=== PATIENT | female | born 1970 | race Caucasian/White ===

== ENCOUNTER 2020-12-28 07:38 | Outpatient (REF) | payer BC, SELFPAY ==
--- NOTE | ~2020-12-28 | XR_ITS ---
EXAMINATION: XR BILATERAL KNEES STANDING. XR LEFT KNEE CLINICAL INFORMATION: Left knee pain. COMPARISON: None TECHNIQUE: AP bilateral knee 1 view. Left knee 2 views. FINDINGS: AP Bilateral Knees Standing: There is mild reduction in medial and lateral compartment joint space both knees. No bony erosive changes or loose body seen. The soft tissues are normal. Left Knee: There is mild reduction in patellofemoral compartment joint space with mild superior patellar spurring. There is minimal suprapatellar joint effusion. No loose bodies or bony erosive changes seen. There is minimal superior patellar enthesophyte. XR/XR knee standing BI IMPRESSION: Mild degenerative changes tricompartment left knee with mild suprapatellar joint effusion. No loose bodies are bony erosive changes. Mild degenerative changes medial and lateral compartment right knee.
--- NOTE | ~2020-12-28 | XR_ITS ---
EXAMINATION: XR BILATERAL KNEES STANDING. XR LEFT KNEE CLINICAL INFORMATION: Left knee pain. COMPARISON: None TECHNIQUE: AP bilateral knee 1 view. Left knee 2 views. FINDINGS: AP Bilateral Knees Standing: There is mild reduction in medial and lateral compartment joint space both knees. No bony erosive changes or loose body seen. The soft tissues are normal. Left Knee: There is mild reduction in patellofemoral compartment joint space with mild superior patellar spurring. There is minimal suprapatellar joint effusion. No loose bodies or bony erosive changes seen. There is minimal superior patellar enthesophyte. XR/XR knee LT 2V IMPRESSION: Mild degenerative changes tricompartment left knee with mild suprapatellar joint effusion. No loose bodies are bony erosive changes. Mild degenerative changes medial and lateral compartment right knee.
== END 2020-12-28 07:39 | disposition home or self-care (01) ==
LOC: HO.HOSX 07:38
PROVIDERS: Visit Provider Orthopaedic Surgery
DX: M25.562 Pain in left knee (principal); M25.561 Pain in right knee; M17.12 Unilateral primary osteoarthritis, left knee
CPT/HCPCS: 73560; 73565

== ENCOUNTER → 2021-04-01 12:22 | Outpatient (BNVA) | payer BC, SELFPAY | PROVIDERS: Visit Provider Orthopaedic Surgery | DX: M17.0 Bilateral primary osteoarthritis of knee (principal); M25.562 Pain in left knee; J45.909 Unspecified asthma, uncomplicated; Z88.1 Allergy status to other antibiotic agents; Z91.09 Other allergy status, other than to drugs and biological substances | CPT/HCPCS: 20610; J1020; J1040 ==

== ENCOUNTER → 2021-10-25 15:28 | Outpatient (BNVA) | payer BC, SELFPAY | PROVIDERS: PCP Internal Medicine; Visit Provider Orthopaedic Surgery | DX: Z13.89 Encounter for screening for other disorder (principal) ==

== ENCOUNTER 2022-03-03 15:38 | Outpatient (REF) | payer BC, SELFPAY ==
--- NOTE | ~2022-03-03 | MM_ITS ---
EXAMINATION: MM SCREENING DIGITAL BREAST TOMOSYNTHESIS, BILATERAL CLINICAL INFORMATION: Screening. COMPARISON: Mammography: March 31, 2020 and studies dating back to September 08, 2011 TECHNIQUE: Digital breast tomosynthesis is performed in both the craniocaudal and mediolateral oblique views along with computer-aided detection (CAD). Synthesized 2D images are generated from the tomosynthesis. FINDINGS: The breasts are heterogeneously dense, which may obscure small masses (ACR BI-RADS breast composition Category c). There are no significant masses, abnormal calcifications, or other abnormalities. MM/MM tomosynthesis screening BI IMPRESSION: There are no significant changes from prior study. ASSESSMENT: BI-RADS 1: Negative RECOMMENDATION: Routine annual mammography screening. This patient's information was entered into a reminder system with a target due date for their next mammogram.
== END 2022-03-03 15:39 | disposition home or self-care (01) ==
LOC: HO.MAMMO 15:38
PROVIDERS: Visit Provider Internal Medicine
DX: Z12.31 Encounter for screening mammogram for malignant neoplasm of breast (principal)
CPT/HCPCS: 77063; 77067

== ENCOUNTER 2022-06-12 08:23 | Outpatient (REF) | payer BC, SELFPAY ==
--- NOTE | ~2022-06-12 | XR_ITS ---
EXAMINATION: AP BILATERAL KNEE. LEFT KNEE. CLINICAL INFORMATION: Pain left knee. COMPARISON: Bilateral AP knee standing and left knee 12/28/2020. TECHNIQUE: AP bilateral knee standing. Left knee 2 views. FINDINGS: AP bilateral knee: There is moderate loss of medial and lateral compartment joint space both knees with mild periarticular spurring medial compartment left knee. Mild genu varus deformity of left knee is noted. No acute fracture or dislocation seen. Left knee: there is mild reduction the patellofemoral compartment joint space with minimal anterior superior patellar spurring. No abnormal joint effusion seen. No bony erosive changes or loose bodies. XR/XR knee LT 2V IMPRESSION: Arthritis left knee with mild anterior superior patellar spurring.
--- NOTE | ~2022-06-12 | XR_ITS ---
EXAMINATION: AP BILATERAL KNEE. LEFT KNEE. CLINICAL INFORMATION: Pain left knee. COMPARISON: Bilateral AP knee standing and left knee 12/28/2020. TECHNIQUE: AP bilateral knee standing. Left knee 2 views. FINDINGS: AP bilateral knee: There is moderate loss of medial and lateral compartment joint space both knees with mild periarticular spurring medial compartment left knee. Mild genu varus deformity of left knee is noted. No acute fracture or dislocation seen. Left knee: there is mild reduction the patellofemoral compartment joint space with minimal anterior superior patellar spurring. No abnormal joint effusion seen. No bony erosive changes or loose bodies. XR/XR knee standing BI IMPRESSION: Arthritis left knee with mild anterior superior patellar spurring.
== END 2022-06-12 08:24 | disposition home or self-care (01) ==
LOC: HO.HOSX 08:23
PROVIDERS: Visit Provider Physician Assistant
DX: M25.561 Pain in right knee (principal); M25.562 Pain in left knee
CPT/HCPCS: 73560; 73565

== ENCOUNTER 2022-07-10 15:57 | Outpatient (REF) | payer BC, SELFPAY ==
--- NOTE | ~2022-07-10 | XR_ITS ---
EXAMINATION: XR WRIST, RIGHT CLINICAL INFORMATION: M25.531 - Pain in right wrist COMPARISON: None. TECHNIQUE: PA, lateral, and oblique views of the right wrist. FINDINGS: No fracture, dislocation, destructive process. Ulnar variance is neutral. Pronator quadratus fat pad normal. No focal joint narrowing or erosive changes. No visible chondrocalcinosis. XR/XR wrist RT min 3V IMPRESSION: Unremarkable right wrist.
== END 2022-07-10 15:58 | disposition home or self-care (01) ==
LOC: HO.HOSX 15:57
PROVIDERS: Visit Provider Orthopaedic Surgery
DX: M25.531 Pain in right wrist (principal)
CPT/HCPCS: 73110

== ENCOUNTER → 2022-07-11 10:18 | Outpatient (BNVA) | payer BC, SELFPAY | PROVIDERS: PCP Internal Medicine; Visit Provider Orthopaedic Surgery | DX: M65.4 Radial styloid tenosynovitis [de Quervain] (principal) | CPT/HCPCS: 20550; J1100 ==

== ENCOUNTER 2022-09-16 07:03 | Outpatient (REF) | payer BC, SELFPAY ==
--- NOTE | ~2022-09-16 | XR_ITS ---
EXAMINATION: XR CERVICAL SPINE CLINICAL INFORMATION: Neck pain COMPARISON: None TECHNIQUE: 3 views of the cervical spine were obtained. FINDINGS: There is mild 2 mm anterior subluxation of C2 with respect to C3. There is curvature of the lower cervical and upper thoracic findings of the left. Bone alignment is otherwise normal. No fracture or dislocation. There is multilevel degenerative spondylosis and degenerative disc disease from C2-C3 to C6-C7. Prevertebral soft tissues are normal. XR/XR cervical spine 2V IMPRESSION: Degenerative changes.
== END 2022-09-16 07:04 | disposition home or self-care (01) ==
LOC: HO.LAB 07:03
PROVIDERS: PCP Internal Medicine; Visit Provider Nurse Practitioner Family
DX: M54.2 Cervicalgia (principal)
CPT/HCPCS: 72040

== ENCOUNTER 2023-02-16 14:41 | Outpatient (AMB) | payer BC, SELFPAY ==
[2023-02-16 14:54] VITALS: BP 122/80; PULSE 66; O2SAT 99; BMI 24.7
--- NOTE | 2023-02-16 14:54 | MHC.PC.OV ---
Vital Signs 02/16/23 14:54 Height 5 ft 1 in Weight 131 lb BMI 24.7 BP 122/80 Blood Pressure Location Lt brachial Position Sitting Pulse 66 Pulse Source Pulse Oximeter Temp Source Skin Pulse Oximetry (%) 99 Oxygen Delivery Method Room Air Intake Visit Reasons: P.E Intake Note: Patient is here today for a physical. 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 Allergies cephalexin [Keflex] Allergy (Unknown, Verified 02/16/23 15:18) hives ENVIRONMENTAL Adverse Reaction (Mild, Uncoded 02/16/23 15:18) UNKNOWN Medication List - Last Reconciled 02/16/23 by NIKO Chaney ibuprofen 200 mg PO Q6H PRN Tobacco use date assessed: 02/16/23 Dental Screening Dental Screen Date: 02/16/23 Did you have a dental visit in the last 12 months?: No Did you have a dental problem in the last 6 months where you did not have access to dental care?: No Was dental information given to patient?: Patient has dentist HPI P.E HPI Details Patient is a 52-year-old female who presents today for physical exam. Patient of Dr. Mills. Medical history significant for bilateral osteoarthritis of knee. Today we discussed patient's need for cervical cancer screening and colon cancer screening. Up-to-date with immunizations. Patient has an upcoming mammogram 02/2023. Patient denies shortness of breath or chest pain. Patient reports intermittent itchy ears. [facility] Medical History Asthma Cervical spine pain Rash Rash and nonspecific skin eruption Family History Mother Cancer Father Heart problem Social History Alcohol intake: current Alcohol intake frequency: holidays/special occasions only Patient Tobacco Use Status: Never used Tobacco Current occupational status: employed Current occupation: right handed - [employer] Cognitive needs: No Hearing needs: No Vision needs: No Questionnaire PHQ-9 Over the last 2 weeks, how often have you been bothered by any of the following problems? 1. Little interest or pleasure in doing things: not at all 2. Feeling down, depressed, or hopeless: not at all 3. Trouble falling or staying asleep, or sleeping too much: not at all 4. Feeling tired or having little energy: not at all 5. Poor appetite or overeating: not at all 6. Feeling bad about yourself - or that you are a failure or have let yourself or your family down: not at all 7. Trouble concentrating on things, such as reading the newspaper or watching television: not at all 8. Moving or speaking so slowly that other people could have noticed. Or the opposite - being so fidgety or restless that you have been moving around a lot more than usual: not at all 9. Thoughts that you would be better off or of hurting yourself in some way: not at all Total score: 0 Depression Screening Interpretation: Negative 55475 - PHQ-9 Billing: Yes Source: Developed by Drs. Jamar Zamora, Milana Macario, Gagan Bro and colleagues, with an educational sybil from [employer]. Thrive Questionnaire Date Thrive assessed: 09/04/22 AUDIT C Alcohol Use Questionnaire (AUDIT-C) 1. How often do you have a drink containing alcohol?: Never 3. How often do you have six or more drinks on one occasion?: Never Total Score: 0 Score Reviewed/Action Taken: No SILVANO-7 AMB Questionnaire SILVANO-7 Date SILVANO - 7 assessed: 02/16/23 Feeling nervous, anxious, or on edge: 0 = Not at all Not being able to stop or control worryin = Not at all Worrying too much about different things: 0 = Not at all Trouble relaxin = Not at all Being so restless that it is hard to sit still: 0 = Not at all Becoming easily annoyed or irritable: 0 = Not at all Feeling afraid as if something awful might happen: 0 = Not at all Total SILVANO-7 score (0-4 normal; 5-9 mild; 10-14 moderate; 15-21 severe): 0 Source: Developed by Drs. Jamar Zamora, Milana Macario, Gagan Bro and colleagues, with an educational sybil from [employer]. SILVANO-7 Assessment Billing SILVANO-7 Assessment Tool: SILVANO-7 Assessment 55879 Review of Systems Const Denies body aches, Denies chills, Denies fever(s) and Denies headache(s) Eyes Denies change in vision ENT Reports as per HPI, Denies dizziness, Denies otalgia, Denies headache(s), Denies nasal discharge, Denies sinus pain and Denies sore throat Card Denies chest pain, Denies edema, Denies lightheadedness and Denies dyspnea Resp Denies cough, Denies dyspnea and Denies wheezing GI Denies abdominal pain, Denies constipation, Denies diarrhea, Denies nausea and Denies vomiting Denies dysuria Musc Denies myalgias Skin/Breast Denies rash Neuro Denies dizziness and Denies headache(s) Aller/Immun Denies wheezing Physical exam (Primary Care) Vital Signs: Last Vital Signs Pulse 66 02/16/23 14:54 BP 122/80 02/16/23 14:54 Pulse Ox 99 02/16/23 14:54 Oxygen Delivery Method Room Air 02/16/23 14:54 BMI result Body Mass Index 24.7 Tobacco/Smoking Status: Tobacco use Status Tobacco use date assessed 02/16/23 02/16/23 14:59 Patient Tobacco Use Status Never used Tobacco 02/16/23 14:59 PHQ-9: PHQ-9 Score PHQ-9: Total score 0 02/16/23 15:18 Depression Screening Interpretation: Negative Thrive Assessment: Date of Thrive Assessment Date Thrive assessed 09/04/22 02/16/23 14:59 Const General: cooperative and no acute distress Orientation/consciousness: patient oriented x3 HENMT Other: Bilateral ear canal normal, no erythema Head: Yes normocephalic and Yes atraumatic Ears: TM's normal bilaterally Face and sinus: Yes sinuses nontender Mouth: oropharynx normal and moist mucous membranes Throat: Yes posterior oropharynx normal Eyes General: appearance normal, both eyes and all related structures Pupils: Equal, round and reactive pupils present EOM: EOMs intact bilaterally Neck Neck: Yes normal visual inspection, Yes full ROM and Yes no lymphadenopathy Thyroid: Thyroid normal Resp Effort & Inspection: normal respiratory effort and able to speak in complete sentences Auscultation: clear to auscultation bilaterally, no crackles, no rales, no rhonchi and no wheezes Cardio Rate: regular rate Rhythm: regular rhythm Heart sounds: S1 normal heart sound present, S2 normal heart sound present and no murmurs GI Palpation (GI): Soft to palpation, not firm, nontender, no guarding, not rigid and no hepatosplenomegaly Auscultation: normal bowel sounds General: No CVA tenderness Back/Spine/Pelvis Back: No CVA tenderness Skin General skin exam: no rashes or lesions noted Neuro General: patient oriented x3 Cranial nerves: Yes Equal, round and reactive pupils present Gait exam (Neuro): Normal gait present Extrem General: Yes full ROM and No edema Assessment and Plan Assessment & Plan (1) Cervical cancer screening: Code(s): Z12.4 - Encounter for screening for malignant neoplasm of cervix (2) Screening for colon cancer: Code(s): Z12.11 - Encounter for screening for malignant neoplasm of colon (3) Adult general medical exam: Code(s): Z00.00 - Encounter for general adult medical examination without abnormal findings Plan: Repeat in 1 year Blood work ordered Orders: Orders Vitamin B12 and Folate Today Z00.00 - Encounter for general adult medical examination without abnormal findings Comprehensive [place]. Panel Fast Today Z00.00 - Encounter for general adult medical examination without abnormal findings Lipid Panel Today Z00.00 - Encounter for general adult medical examination without abnormal findings TSH reflex Free T4 Today Z00.00 - Encounter for general adult medical examination without abnormal findings Vitamin D 25-OH Total Today Z00.00 - Encounter for general adult medical examination without abnormal findings Complete Blood Count Auto Diff Today Z00.00 - Encounter for general adult medical examination without abnormal findings Referrals Open Access Screening Colonoscopy Referral Z12.11 - Encounter for screening for malignant neoplasm of colon, Z12.12 - Encounter for screening for malignant neoplasm of rectum FAMILY INDEPENDENCE CASE MANAGER Referral Z12.4 - Encounter for screening for malignant neoplasm of cervix Coding Level of Care Code Est Pt Prev Care 40-64y(23956) Diagnoses Cervical cancer screening Z12.4 Screening for colon cancer Z12.11 Adult general medical exam Z00.00 Additional Codes SILVANO-7 Assessment Billing - SILVANO-7 Assessment Tool: SILVANO-7 Assessment 21373 ([id number])
== END 2023-02-16 15:34 | disposition home or self-care (01) ==
PROVIDERS: PCP Internal Medicine; Visit Provider Nurse Practitioner Family
DX: Z00.00 Encounter for general adult medical examination without abnormal findings (principal); Z12.11 Encounter for screening for malignant neoplasm of colon
CPT/HCPCS: 99396

== ENCOUNTER 2023-03-08 15:44 | Outpatient (REF) | payer BC, SELFPAY | END 2023-03-08 15:45 | disposition home or self-care (01) | LOC: HO.MAMMO 15:44 | PROVIDERS: PCP Internal Medicine; Visit Provider Internal Medicine | DX: Z12.31 Encounter for screening mammogram for malignant neoplasm of breast (principal) | CPT/HCPCS: 77063; 77067 ==

== ENCOUNTER → 2023-03-08 16:00 | Outpatient (BNV) | payer BC, SELFPAY | PROVIDERS: PCP Internal Medicine; Visit Provider Radiology Diagnostic Radiology | DX: Z12.31 Encounter for screening mammogram for malignant neoplasm of breast (principal) | CPT/HCPCS: 77063; 77067 ==

== ENCOUNTER 2023-06-29 14:29 | Outpatient (REF) | payer BC, SELFPAY ==
[2023-06-30 01:24] LABS: CT PCR NOT DETECTED (Not Detect.); NG PCR NOT DETECTED (Not Detect.)
[2023-07-01 14:32] LABS: BV Int Neg Control Negative (Negative); BV Int Pos Control Positive (Positive)
[2023-07-05 05:04] LABS: HPV mRNA E6/E7 rflx Not Detected (Not Detected)
== END 2023-06-29 14:30 | disposition home or self-care (01) ==
LOC: HO.LNP 14:29
PROVIDERS: PCP Internal Medicine; Visit Provider Advanced Practice Midwife
DX: Z01.419 Encounter for gynecological examination (general) (routine) without abnormal findings (principal); Z11.51 Encounter for screening for human papillomavirus (HPV); Z20.2 Contact with and (suspected) exposure to infections with a predominantly sexual mode of transmission
CPT/HCPCS: 0353U; 87480; 87510; 87624; 87660; 88142

== ENCOUNTER 2023-06-29 14:29 | Outpatient (AMB) | payer BC, SELFPAY ==
--- NOTE | 2023-06-29 14:40 | A.OFFVIS_ITS ---
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 It has been a few years since she has been seen for an annual exam she used to go to [facility] and would follow them around to their different sites but she is not sure they are right now. Her primary care providers have changed also. She has no particular health concerns she smoked for maybe 10 years and she stop smoking about 20 years ago. She used Chantix and it helped her. She works full-time and has worked in many places in [employer]. Last time she was sexually active was a few years ago. She has no particular worries about STIs but is open to testing with the Pap. She has a family member who was somewhat recently diagnosed with uterine sarcoma so is concerned about that. She has not had a period since menopause. She did have some hot flashes but they are mostly done. She tries to eat well she thinks she could walk more for exercise but after a long day at work is tired. She does not have any other health concerns she is getting her mammograms jay ually and she has a appointment for a colonoscopy coming up. [facility] Medical History (Updated 06/29/23 @ 15:31 by Gloria Conrad CNM) Cervical spine pain Rash and nonspecific skin eruption Rash Asthma Surgical History (Updated 06/29/23 @ 14:51 by AMIRA Logan) History of left knee surgery Hx of appendectomy Family History (Updated 06/29/23 @ 14:52 by AMIRA Logan) Mother Cancer Father Heart problem Brother Colon cancer Sister Uterine cancer Social History Alcohol intake: current Alcohol intake frequency: holidays/special occasions only Patient Tobacco Use Status: Never used Tobacco Current occupational status: employed Current occupation: right handed - [employer] Cognitive needs: No Hearing needs: No Vision needs: No Female Reproductive History Menstrual Age of Menarche: 9 control method: none Total pregnancies: 1 Ab induced: 1 Date of last pap smear: 03/01/18 (negative) Date of Mammogram: 03/08/23 Review of Systems Const Reports lethargy Physical Exam Vital Signs: Last Vital Signs BP 126/76 06/29/23 14:41 BMI result Body Mass Index 25.3 Const General: healthy appearing, comfortable, no acute distress, well developed and alert Nutritional Appearance: average body habitus Orientation/consciousness: patient oriented x3 Limitations: no limitations HEENT Head: Yes normocephalic Neck Neck: Yes normal visual inspection Chest Chest palpation & inspection: normal inspection of the chest Breast/axilla inspection: normal inspection of the breasts and normal inspection of the axillae Breast/axilla palpation: normal palpation of the breasts and normal palpation of the axillae Resp Effort & Inspection: normal respiratory effort GI Inspection: Yes normal to inspection, No Abdominal wall edema and No distended Palpation (GI): Soft to palpation and nontender General: Yes bladder normal to palpation External Female Exam: normal external appearance and normal appearance of the urethra Speculum Exam - Vagina: normal appearance of the vagina, normal palpation and normal vaginal discharge Speculum Exam - Cervix: normal appearance of the cervix, normal palpation and nontender Bimanual exam- vagina & uterus: normal bimanual exam, normal palpation, uterine size normal, bladder normal to palpation, consistency normal, normal palpation, uterine mobility normal, uterine shape normal, No Cervical tenderness present, non-tender and no cervical motion tenderness Bimanual Exam- Adnexa, other: normal adnexae, no masses, normal and No adnexal tenderness Neuro General: patient oriented x3 Assessment & Plan Assessment & Plan (1) Cervical cancer screening: Comment: pap done 06/29/23. Code(s): Z12.4 - Encounter for screening for malignant neoplasm of cervix (2) Well woman exam with routine gynecological exam: Code(s): Z01.419 - Encounter for gynecological examination (general) (routine) without abnormal findings (3) Family hx-genital malignancy: Code(s): Z80.49 - Family history of malignant neoplasm of other genital organs Plan -----Discussed in this visit the following: healthy balanced diet, regular and consistent exercise, getting recommended health screens, doing the best she can for her particular health concerns, kegel exercises, pap smear screening and followup recommendations, mammography screening and SBE, normal changes in cy cles in her life stage--- . Reviewed all her efforts to take care of herself and get all of her screenings and healthcare needs met. Offered testing for STIs but she does not feel is in need for blood work. Pap smear was done as well as testing for gonorrhea chlamydia trichomoniasis Gardnerella and Jamilah. Reviewed her history in family history. Reviewed that there are no good screening tests for ovarian cancer but reviewed her lack of symptoms that would require more testing for either ovarian or endometrial cancers. She ever did develop any of these symptoms she should call in and requested visit and we would take it from there. No particular indication for a pelvic ultrasound or other evaluation was noted today. Will see her in 1 year Orders: Orders Bacterial Vaginosis Panel Today Z11.3 - Encounter for screening for infections with a predominantly sexual mode of transmission Pap Smear Today Z12.4 - Encounter for screening for malignant neoplasm of cervix CT NG by PCR Today Z11.3 - Encounter for screening for infections with a predominantly sexual mode of transmission Coding Level of Care Code New Pt Prev Care 40-64y(75315) Diagnoses Cervical cancer screening Z12.4 Well woman exam with routine gynecological exam Z01.419 Family hx-genital malignancy Z80.49
[2023-06-29 14:41] VITALS: BP 126/76; BMI 25.3
== END 2023-06-29 15:29 | disposition home or self-care (01) ==
PROVIDERS: PCP Internal Medicine; Visit Provider Advanced Practice Midwife
DX: Z12.4 Encounter for screening for malignant neoplasm of cervix (principal); Z01.419 Encounter for gynecological examination (general) (routine) without abnormal findings; Z80.49 Family history of malignant neoplasm of other genital organs
CPT/HCPCS: 99386

== ENCOUNTER 2023-08-03 10:25 | Day surgery (SDC) | payer BC, SELFPAY ==
--- NOTE | 2023-08-02 13:11 | HO.ANESPROP2 ---
Documented by User: Rajni Montiel NP 08/02/23 13:11 HPI - Anesthesia Eval Consult details Narrative: 53yo F for Colonoscopy PMFSH Active Problems Active Problems: All Active Problems (Updated 07/10/23 @ 16:45 by Gloria Conrad CNM) Family hx-genital malignancy (Acute) Well woman exam with routine gynecological exam (Acute) Screening for colon cancer (Acute) Cervical cancer screening (Acute) Adult general medical exam (Acute) Cervical spine pain (Acute) De Quervain's tenosynovitis, right (Acute) Bilateral primary osteoarthritis of knee (Acute) Primary osteoarthritis of left knee (Acute) Rash and nonspecific skin eruption (Acute) Rash (Acute) Past Medical History Medical History Cervical spine pain Rash and nonspecific skin eruption Rash Asthma Family History Family History (Updated 06/29/23 @ 14:52 by AMIRA Logan) Mother Cancer Father Heart problem Brother Colon cancer Sister Uterine cancer Surgical History Surgical History History of left knee surgery Hx of appendectomy Social History Social History Alcohol intake: current Alcohol intake frequency: holidays/special occasions only Patient Tobacco Use Status: Never used Tobacco Use of substances other than those prescribed or required for medical reasons: Yes Are you DNR?: No Advance Directives: No Advance Directives Information Provided: Yes Current occupational status: employed Current occupation: right handed - [employer] Cognitive needs: No Hearing needs: No Vision needs: No Meds Allergies Allergy/AdvReac Type Severity Reaction Status Date / Time cephalexin [Keflex] Allergy Unknown hives Verified 08/03/23 11:46 ENVIRONMENTAL AdvReac Mild UNKNOWN Uncoded 08/03/23 11:46 Home Medications Medication Instructions Recorded Confirmed Last Taken Type ibuprofen 200 mg capsule 200 mg PO Q6H PRN Pain 07/11/22 08/03/23 Unknown History Assessment and Plan Assessment Anesthesia Assessment: Chart Reviewed Documented by User: Muna Rai MD 08/03/23 11:57 PMF Past Medical History Medical History Cervical spine pain Rash and nonspecific skin eruption Rash Asthma Family History Family History (Updated 06/29/23 @ 14:52 by AMIRA Logan) Mother Cancer Father Heart problem Brother Colon cancer Sister Uterine cancer Family history of problems with anesthesia: No Surgical History Surgical History History of left knee surgery Hx of appendectomy History of Problems with Anesthesia: No Social History Social History Alcohol intake: current Alcohol intake frequency: holidays/special occasions only Patient Tobacco Use Status: Never used Tobacco Use of substances other than those prescribed or required for medical reasons: Yes Are you DNR?: No Advance Directives: No Advance Directives Information Provided: Yes Current occupational status: employed Current occupation: right handed - [employer] Cognitive needs: No Hearing needs: No Vision needs: No Meds Allergies Allergy/AdvReac Type Severity Reaction Status Date / Time cephalexin [Keflex] Allergy Unknown hives Verified 08/03/23 11:46 ENVIRONMENTAL AdvReac Mild UNKNOWN Uncoded 08/03/23 11:46 Home Medications Medication Instructions Recorded Confirmed Last Taken Type ibuprofen 200 mg capsule 200 mg PO Q6H PRN Pain 07/11/22 08/03/23 Unknown History Exam Airway Mallampati Class: II TM Dist: >3cm Neck ROM: Full Heart: rrr Lungs: cta Assessment and Plan Assessment Anesthesia Assessment: Anesthesia Plan Discussed Final Anesthetic Review Family History of Problems with Anesthesia: No History of Problems with Anesthesia: No NPO: Yes ASA Class: II Final Preanesthetic Review: No Changes in Pt Med Stat, Meds/Allgs Chart Reviewed and Consent Obtained/Reviewed Patient Risk: Intermediate Procedure Risk: Intermediate Anesthetic Plan Anesthetic Plan: MAC: Disposition: Standard PACU
--- NOTE | 2023-08-03 11:06 | MHC.SHP ---
Pre-Procedural Eval Section A Date of Service: 08/03/23 The patient is an INPATIENT: No The History & Physical has been completed within 30 days and I have reviewed it.: No Section B Chief Complaint: Encounter for screening for malignant neoplasm of Relevant Family History (Specify if Yes): Yes Relevant Social History: None Present Medications: see Short Stay Collaborative assessment Medical History: Significant History (Asthma Cervical spine pain Rash) History of Previous Operations: Relevant previous surgery/procedure and date(s) (status post appendectomy, hx of left knee surgery) Allergies: Allergies Allergy/AdvReac Type Severity Reaction Status Date / Time cephalexin [Keflex] Allergy Unknown hives Verified 06/29/23 14:44 ENVIRONMENTAL AdvReac Mild UNKNOWN Uncoded 06/29/23 14:44 Review of Systems Sugical H&P ROS: Negative: Constitution, Cardiovascular, Respiratory and Gastrointestinal Exam Surgical H&P Exam: Normal: Heart, Normal: Lungs, Normal: Extremities and Normal: Abdomen Plan Diagnosis/Plan: Unchanged I have reviewed the history and physical and performed a pertinent physical examination on my patient. No changes have occurred unless specified. Time Spent With Patient Time: Total time managing care of this patient today ____ minutes.
[2023-08-03 11:09] VITALS: BMI 25.2
[2023-08-03 11:18] VITALS: BP 108/66; PULSE 78; RESP 16; TEMP 37.3; O2SAT 98
--- NOTE | 2023-08-03 11:55 | W.PM.OPN ---
Operative Note Operative Note Date of Service: 08/03/23 Narrative: COLONOSCOPY TILL CECUM Pre-op diagnosis: Colon cancer screening, family history of colon cancer (brother in his mid 50's) Post-op diagnosis:? Diverticulosis Endoscopist:? Freedom Graf MD Anesthesia:?MAC Consent: Indications for the procedure and potential complications of bleeding, perforation, reaction to medications and missed diagnosis were discussed with the patient and informed consent was obtained. Instrument: Olympus PCF H 190 L variable stiffness pediatric colonoscope Monitoring: Vital signs and clinical assessment, intermittent blood pressure monitoring, continuous EKG monitoring, Pulse oximetry and Carbon Dioxide monitoring were done throughout the procedure. Please see anesthesia flowsheet. Colon withdrawl time was 20 minutes. Procedure: The patient was placed in the left lateral decubitis position and pre-procedure medications were administered. After a digital rectal examination of the ano-rectum, the video colonoscope was inserted into the rectum and advanced through the colon to the cecum. The colonoscope was slowly withdrawn in a retrograde panoramic fashion and the colon mucosa was carefully examined including a retroflexed view of the rectum. Findings and interventions are described below. Procedure Difficulty: Without difficulty Findings: Terminal Ileum: Not evaluated Cecum: Moderate diverticulosis throughout the entire colon Ascending Colon: Moderate diverticulosis throughout the entire colon Transverse Colon: Moderate diverticulosis throughout the entire colon Descending Colon: Moderate diverticulosis throughout the entire colon Sigmoid Colon: Severe diverticulosis Rectum: Normal Ano-rectum: Normal Colon preparation: Good after copious irrigation (pt was able to drink half her prep due to nausea and vomiting when she tried to drink the 2nd half of her prep [place] Bowel Preparation Scale Right colon; 2 Transverse colon: 2 Left colon; 3 (0 = Unprepared colon segment with mucosa not seen due to solid stool that cannot be cleared. 1 = Portion of mucosa of the colon segment seen, but other areas of the colon segment not well seen due to staining, residual stool and/or opaque liquid. 2 = Minor amount of residual staining, small fragments of stool and/or opaque liquid, but mucosa of colon segment seen well. 3 = Entire mucosa of colon segment seen well with no residual staining, small fragments of stool or opaque liquid) Impression and Post Procedure Diagnosis: Colonoscopy Findings: No polyps were detected Moderate to severe diverticulosis seen in the entire colon Moderate hemorrhoids on retroflexed exam. Plan: Repeat Colonoscopy in 5 years due to positive family history of colon cancer Diverticulosis handout was given in the discharge area
[2023-08-03 12:39] VITALS: BP 105/59; PULSE 85; RESP 16; TEMP 36.2; O2SAT 100
[2023-08-03 12:58] VITALS: BP 112/59; PULSE 64; RESP 18; TEMP 36.2; O2SAT 100
== END 2023-08-03 13:25 | disposition home or self-care (01) ==
PROVIDERS: Visit Provider Internal Medicine Gastroenterology
PROC: 0DJD8ZZ Inspection of Lower Intestinal Tract, Via Natural or Artificial Opening Endoscopic (ICD-10-PCS; CPT 45378; principal; 2023-08-03 12:00)
DX: Z12.11 Encounter for screening for malignant neoplasm of colon (principal); Z80.0 Family history of malignant neoplasm of digestive organs; K57.30 Diverticulosis of large intestine without perforation or abscess without bleeding; K64.8 Other hemorrhoids; J45.909 Unspecified asthma, uncomplicated; R21 Rash and other nonspecific skin eruption; Z79.1 Long term (current) use of non-steroidal anti-inflammatories (NSAID); Z88.1 Allergy status to other antibiotic agents; Z80.49 Family history of malignant neoplasm of other genital organs
CPT/HCPCS: 45378; J2704

== ENCOUNTER → 2023-08-03 10:25 | Outpatient (BNV) | payer BC, SELFPAY | PROVIDERS: Visit Provider Internal Medicine Gastroenterology | DX: Z12.11 Encounter for screening for malignant neoplasm of colon (principal); Z80.0 Family history of malignant neoplasm of digestive organs; K57.90 Diverticulosis of intestine, part unspecified, without perforation or abscess without bleeding; K64.8 Other hemorrhoids | CPT/HCPCS: 45378 ==

== ENCOUNTER 2024-02-01 07:42 | Outpatient (AMB) | payer BC, SELFPAY ==
[2024-02-01 07:56] VITALS: BP 106/68; PULSE 58; O2SAT 98; BMI 26.3
--- NOTE | 2024-02-01 07:56 | A.OFFPC_ITS ---
Vital Signs 3 02/01/24 07:56 Height 5 ft 1 in Weight 139 lb 0.1 oz BMI 26.3 BP 106/68 Blood Pressure Location Lt brachial Position Sitting Pulse 58 Pulse Source Pulse Oximeter Pulse Oximetry (%) 98 Oxygen Delivery Method Room Air Intake Visit Reasons: CheckUp Allergies cephalexin [Keflex] Allergy (Unknown, Verified 02/01/24 08:25) hives ENVIRONMENTAL Adverse Reaction (Mild, Uncoded 02/01/24 08:25) UNKNOWN Medication List - Last Reconciled 02/01/24 by Shelby Davis PA-C ibuprofen 200 mg PO Q6H PRN Tobacco use date assessed: 02/01/24 Dental Screening Dental Screen Date: 02/01/24 Did you have a dental visit in the last 12 months?: Yes Did you have a dental problem in the last 6 months where you did not have access to dental care?: No Was dental information given to patient?: Patient has dentist HPI CheckUp 2 HPI0 Details 53-year-old female with history of osteo arthritis in both knees last seen by Annalee 02/16/2023 coming in for annual exam.? Review of the notes patient had colonoscopy completed 08/03/2023 with repeat in 5 years due to family history. Pap smear completed 07/03/2023 which was negative for malignancy. Patient is up-to-date on her mammogram 03/08/2023 BI-RADS 1. Up-to-date on vaccinations. Today she tells us she has been having itchiness on her scalp and within her ears. She has previously been seen by dermatology for this problem and given steroid drops but is unsure of the name. She uses T/Gel and Selsun blue for the scalp itchiness with mild relief but still has itchiness at the base of the neck which flares 2-3 times per month. She has used the drops on the neck with some improvement. She also mentions she has been having upper right eyelid swelling and swelling below the eye intermittently for the last 2 months. She has been using warm compresses with some improvement. Lastly she mentions she has bilateral knee pain and was previously seen by [facility] [place] and given a cortisone injection with mild relief. She has interested in a repeat cortisone injection however does not want to return [place]. [facility] Medical History Cervical spine pain Rash and nonspecific skin eruption Rash Asthma Surgical History History of left knee surgery Hx of appendectomy Family History Mother Cancer Father Heart problem Brother Colon cancer Sister Uterine cancer Social History Alcohol intake: current Alcohol intake frequency: holidays/special occasions only Patient Tobacco Use Status: Former Tobacco user Tobacco use type: Cigarette Cigarette Packs Per Day: 1 Years Smoked: 21 years stopped at 33 y/o Current occupational status: employed Current occupation: right handed - [employer] Cognitive needs: No Hearing needs: No Vision needs: No Female Reproductive History Menstrual Age of Menarche: 9 Questionnaire PHQ-9 Over the last 2 weeks, how often have you been bothered by any of the following problems? 1. Little interest or pleasure in doing things: not at all 2. Feeling down, depressed, or hopeless: not at all 3. Trouble falling or staying asleep, or sleeping too much: not at all 4. Feeling tired or having little energy: not at all 5. Poor appetite or overeating: not at all 6. Feeling bad about yourself - or that you are a failure or have let yourself or your family down: not at all 7. Trouble concentrating on things, such as reading the newspaper or watching television: not at all 8. Moving or speaking so slowly that other people could have noticed. Or the opposite - being so fidgety or restless that you have been moving around a lot more than usual: not at all 9. Thoughts that you would be better off or of hurting yourself in some way: not at all Total score: 0 Depression Screening Interpretation: Negative Depression Screening Done: Yes 93458 - PHQ-9 Billing: Yes Source: Developed by Drs. Jamar Zamora, Milana Macario, Gagan Bro and colleagues, with an educational sybil from [employer]. Thrive Questionnaire Date Thrive assessed: 02/06/23 AUDIT C Alcohol Use Questionnaire (AUDIT-C) 1. How often do you have a drink containing alcohol?: Never 3. How often do you have six or more drinks on one occasion?: Never Total Score: 0 Score Reviewed/Action Taken: No SILVANO-7 AMB Questionnaire SILVANO-7 Date SILVANO - 7 assessed: 02/01/24 Feeling nervous, anxious, or on edge: 0 = Not at all Not being able to stop or control worryin = Not at all Worrying too much about different things: 0 = Not at all Trouble relaxin = Not at all Being so restless that it is hard to sit still: 0 = Not at all Becoming easily annoyed or irritable: 0 = Not at all Feeling afraid as if something awful might happen: 0 = Not at all Total SILVANO-7 score (0-4 normal; 5-9 mild; 10-14 moderate; 15-21 severe): 0 Source: Developed by Drs. Jamar Zamora, Milana Macario, Gagan Bro and colleagues, with an educational sybil from [employer]. SILVANO-7 Assessment Billing SILVANO-7 Assessment Tool: SILVANO-7 Assessment 55682 Review of Systems Const Denies body aches, Denies chills and Denies fever(s) Eyes Details: Right upper eyelid swelling and bump and bump under right eye. Denies vision changes, pain, discharge or redness. ENT Reports no additional complaints Card Denies chest pain and Denies dyspnea Resp Denies dyspnea Musc Details: Chronic bilateral knee pain Skin/Breast Details: Scalp irritation and itchiness. Posterior neck itchiness. Denies flaking of the scalp. Aller/Immun Reports no additional complaints Physical exam (Primary Care) Vital Signs: Last Vital Signs Pulse 58 02/01/24 07:56 BP 106/68 02/01/24 07:56 Pulse Ox 98 02/01/24 07:56 Oxygen Delivery Method Room Air 02/01/24 07:56 BMI result Body Mass Index 26.3 Tobacco/Smoking Status: Tobacco use Status Tobacco use date assessed 02/01/24 02/01/24 08:04 Patient Tobacco Use Status Former Tobacco user 02/01/24 08:32 Tobacco use type Cigarette 02/01/24 08:32 PHQ-9: PHQ-9 Score PHQ-9: Total score 0 02/01/24 08:02 Depression Screening Interpretation: Negative Thrive Assessment: Date of Thrive Assessment Date Thrive assessed 09/04/22 02/01/24 07:57 Const General: cooperative, healthy appearing, comfortable and no acute distress Nutritional Appearance: average body habitus Orientation/consciousness: patient oriented x3 Limitations: no limitations HENMT Other: No dandruff. No rash or irritation on the posterior aspect of the neck. Head: Yes normocephalic Ears: hearing grossly normal bilaterally and external ears normal General nose exam: Normal external nose present Face and sinus: Yes normal facial exam Eyes Other: Small bump on right eyelid without erythema, pain, crusting or discharge. Mild swelling under right eye nontender without erythema. Left eye appears normal. Conjunctivae: conjunctivae normal Pupils: Equal, round and reactive pupils present Eyes/upper lids images: 2 1. small bump with white head 2. mild swelling Neck Neck: Yes normal visual inspection Resp Effort & Inspection: normal respiratory effort and able to speak in complete sentences Auscultation: clear to auscultation bilaterally, no crackles, no rales, no rhonchi and no wheezes Cardio Rate: regular rate Rhythm: regular rhythm Heart sounds: S1 normal heart sound present and S2 normal heart sound present Skin General skin exam: no rashes or lesions noted, no crusts and skin not dry Neuro General: patient oriented x3 and gait normal Cranial nerves: Yes Equal, round and reactive pupils present Extrem Right lower extremity: normal to inspection and full ROM Left lower extremity: normal to inspection and full ROM Psych Speech and movement: Normal speech and movement present Affect: normal affect Attitude: cooperative Thought process: Normal thought process present Insight: Good insight present (Psych) Assessment and Plan Assessment & Plan (1) Primary osteoarthritis of left knee: Code(s): M17.12 - Unilateral primary osteoarthritis, left knee Plan: Last x-rays 2021 showing joint space narrowing and spurring of bilateral knees. She is currently using ibuprofen with mild relief of pain. Patient was previously seen by [facility] and given a cortisone injection with good relief. She is interested in repeat cortisone injections and is referred to a [facility] per patient request. (2) Irritation of eyelid: Code(s): H02.89 - Other specified disorders of eyelid Plan: Patient has been having mild swelling of the right eyelid for the past 2 months. She has had improvement with warm compresses. Patient agrees to continue with warm compresses and eyelid hygiene with baby shampoo. Also instructed about good makeup hygiene and discarding old mascara. Counseled patient on red flag symptoms of eye swelling and when to present to the ED. Patient will reach out in 1-2 weeks if symptoms do not improve. (3) Scalp pruritus: Code(s): L29.9 - Pruritus, unspecified Plan: No active lesions on the back of the neck to evaluate at this time. Patient states when she has the flares she can feel raised patches. Has used steroids in the past with good relief and has some at this time. Instructed patient she can use [id number] hydrocortisone. Patient also uses T gel and Selsun blue for scalp itch with good relief. Informed patient if hydrocortisone does not improve the rash a stronger steroid may be prescribed. Orders: Orders 2 Complete Blood Count Auto Diff Today Z00.00 - Encounter for general adult medical examination without abnormal findings TSH reflex Free T4 Today Z00.00 - Encounter for general adult medical examination without abnormal findings Vitamin D 25-OH Total Today Z00.00 - Encounter for general adult medical examination without abnormal findings Comprehensive [place]. Panel Fast Today Z00.00 - Encounter for general adult medical examination without abnormal findings Lipid Panel Today Z00.00 - Encounter for general adult medical examination without abnormal findings Vitamin B12 and Folate Today Z00.00 - Encounter for general adult medical examination without abnormal findings Referrals 2 Orthopedics Referral M17.12 - Unilateral primary osteoarthritis, left knee Coding Level of Care Code Est Pt Level 4 (08682) Diagnoses Primary osteoarthritis of left knee M17.12 Irritation of eyelid H02.89 Scalp pruritus L29.9 Additional Codes SILVANO-7 Assessment Billing - SILVANO-7 Assessment Tool: SILVANO-7 Assessment 22282 ([id number])
== END 2024-02-01 08:40 | disposition home or self-care (01) ==
PROVIDERS: PCP Internal Medicine
DX: M17.12 Unilateral primary osteoarthritis, left knee (principal); H02.89 Other specified disorders of eyelid; L29.9 Pruritus, unspecified
CPT/HCPCS: 99214

== ENCOUNTER 2024-02-16 07:09 | Outpatient (REF) | payer BC, SELFPAY ==
[2024-02-16 07:27] LABS: MANUAL DIFF FLAG NO
[2024-02-16 07:34] LABS: Basophils Absolute Auto 0.1 X10*3/uL (0.0-0.2); Eosinophils Absolute Auto 0.3 X10*3/uL (0.0-0.4); Eosinophils Percent Auto 5.7 % (0-4); Hematocrit 42.4 % (37.0-47.0); Hemoglobin 14.4 g/dl (12.0-16.0); Imm Gran Abs Auto 0.01 X10*3/uL (0.00-0.03); Imm Gran Pct Auto 0.2 % (0.0-0.4); Lymphocytes Percent Auto 34.3 % (20-40); Mean Corpuscular Hemoglobin 31.2 pg (27.0-33.0); Mean Corpuscular Volume 91.8 fL (80.0-98.0); Mean Platelet Volume 9.7 fL (9.4-12.3); Monocytes Absolute Auto 0.6 X10*3/uL (0.1-1.2); Monocytes Percent Auto 9.7 % (2-11); Neutrophils Absolute Auto 2.8 x10*3/uL (2.0-8.3); Neutrophils Percent Auto 49.1 % (45-73); Platelet Count 245 X10*3/uL (160-400); Red Blood Count 4.62 X10*6/uL (4.20-5.50); Red Cell Distribution Width 12.8 % (11.0-16.0); White Blood Count 5.8 X10*3/uL (4.8-10.8)
[2024-02-16 08:29] LABS: Alanine Aminotransferase 15 U/L (0-31); Albumin Level 4.6 g/dL (3.5-5.0); Alkaline Phosphatase 81 U/L (39-117); Anion Gap 13 (12-20); Aspartate Amino Transferase 21 U/L (5-31); Bilirubin Total 0.3 mg/dL (0.0-1.0); Blood Urea Nitrogen 20 mg/dL (9-16); Calcium 9.8 mg/dL (8.4-10.2); Carbon Dioxide 27 mmol/L (22-29); Chloride 108 mmol/L (96-108); Cholesterol 193 mg/dL (<200); Estimated Glomerular Filt Rate > 60; Glucose Fasting 102 mg/dL (60-99); HDL Cholesterol 88 mg/dL (>40); LDL Cholesterol Calculated 94 mg/dL (<100); Potassium 4.5 mmol/L (3.3-5.1); Sodium 143 mmol/L (135-145); Total Protein 6.9 g/dL (6.5-8.0); Triglycerides 59 mg/dL (<150)
[2024-02-16 08:38] LABS: TSH reflex Free T4 1.12 uIU/mL (0.32-4.0)
[2024-02-16 08:51] LABS: Vitamin B12 365 pg/mL (200-900)
== END 2024-02-16 07:10 | disposition home or self-care (01) ==
LOC: HO.LAB 07:09
PROVIDERS: PCP Internal Medicine
DX: Z00.00 Encounter for general adult medical examination without abnormal findings (principal); Z13.89 Encounter for screening for other disorder
CPT/HCPCS: 36415; 80053; 80061; 82306; 82607; 82746; 84443; 85025

== ENCOUNTER 2024-03-28 13:24 | Outpatient (REF) | payer BC, SELFPAY ==
--- NOTE | ~2024-03-28 | MM_ITS ---
EXAMINATION: MM SCREENING DIGITAL BREAST TOMOSYNTHESIS, BILATERAL CLINICAL INFORMATION: Screening. Asymptomatic. COMPARISON: Mammography: Comparison is made with available priors TECHNIQUE: Digital breast mammography with tomosynthesis is performed in both the craniocaudal and mediolateral oblique views along with computer-aided detection (CAD). FINDINGS: There are scattered areas of fibroglandular density (ACR BI-RADS breast composition Category b). There are no significant masses, abnormal calcifications, or other abnormalities. MM/MM tomosynthesis screening BI IMPRESSION: No mammographic evidence of malignancy. ASSESSMENT: BI-RADS BI-RADS 1 - Negative RECOMMENDATION: Routine annual mammography screening. 1 year F/U This examination should not preclude the clinical evaluation of a suspicious palpable abnormality. This patient's information was entered into a reminder system with a target due date for their next mammogram. Electronically signed by: Shanel Lacey DO 04/19/2024 10:37 PM EDT
== END 2024-03-28 13:25 | disposition home or self-care (01) ==
LOC: HO.MAMMO 13:24
PROVIDERS: Visit Provider Internal Medicine
DX: Z12.31 Encounter for screening mammogram for malignant neoplasm of breast (principal)
CPT/HCPCS: 77063; 77067

== ENCOUNTER → 2024-03-28 13:30 | Outpatient (BNV) | payer BC, SELFPAY | PROVIDERS: Visit Provider Internal Medicine | DX: Z12.31 Encounter for screening mammogram for malignant neoplasm of breast (principal) | CPT/HCPCS: 77063; 77067 ==

== ENCOUNTER 2024-04-04 08:01 | Outpatient (AMB) | payer BC, SELFPAY ==
[2024-04-04 08:06] VITALS: BP 108/70; PULSE 76; O2SAT 98; BMI 25.1
--- NOTE | 2024-04-04 08:06 | MHC.PC.OV ---
Vital Signs 04/04/24 08:06 Height 5 ft 1 in Weight 133 lb BMI 25.1 BP 108/70 Blood Pressure Location Lt brachial Position Sitting Pulse 76 Pulse Source Pulse Oximeter Pulse Oximetry (%) 98 Oxygen Delivery Method Room Air Intake Visit Reasons: Annual Exam Allergies cephalexin [Keflex] Allergy (Unknown, Verified 04/04/24 08:13) hives ENVIRONMENTAL Adverse Reaction (Mild, Uncoded 04/04/24 08:13) UNKNOWN Medication List - Last Reconciled 04/04/24 by Shelby Davis PA-C ibuprofen 200 mg PO Q6H PRN Tobacco use date assessed: 02/01/24 Dental Screening Dental Screen Date: 04/04/24 Did you have a dental visit in the last 12 months?: Yes Did you have a dental problem in the last 6 months where you did not have access to dental care?: No Was dental information given to patient?: Patient has dentist HPI Annual Exam HPI Details 53-year-old female with history of osteoarthritis in both knees last seen January 2024 coming in for annual exam.? Review of the notes patient had colonoscopy completed 08/03/2023 with repeat in 5 years due to family history. Pap smear completed 07/03/2023 which was negative for malignancy. Patient is up-to-date on her mammogram 02/2024. Up-to-date on vaccinations. Patient states she was seen by a [facility] was given a cortisone injection for her left knee in both knees have been feeling better. She does also mentioned she has a vaginal odor with scant discharge and has been using prescribed vaginal cream but does not feel this is helping. Lastly she mentions she does have itchy ears and was previously being treated by Dermatology with steroid oil drops but has run out of these. [facility] Medical History Cervical spine pain Rash and nonspecific skin eruption Rash Asthma Surgical History History of left knee surgery Hx of appendectomy Family History Mother Cancer Father Heart problem Brother Colon cancer Sister Uterine cancer Social History Alcohol intake: current Alcohol intake frequency: holidays/special occasions only Patient Tobacco Use Status: Former Tobacco user Tobacco use type: Cigarette Cigarette Packs Per Day: 1 Years Smoked: 21 years stopped at 33 y/o Current occupational status: employed Current occupation: right handed - [employer] Cognitive needs: No Hearing needs: No Vision needs: No Female Reproductive History Menstrual Age of Menarche: 9 Questionnaire PHQ-9 Over the last 2 weeks, how often have you been bothered by any of the following problems? 1. Little interest or pleasure in doing things: not at all 2. Feeling down, depressed, or hopeless: not at all 3. Trouble falling or staying asleep, or sleeping too much: not at all 4. Feeling tired or having little energy: not at all 5. Poor appetite or overeating: not at all 6. Feeling bad about yourself - or that you are a failure or have let yourself or your family down: not at all 7. Trouble concentrating on things, such as reading the newspaper or watching television: not at all 8. Moving or speaking so slowly that other people could have noticed. Or the opposite - being so fidgety or restless that you have been moving around a lot more than usual: not at all 9. Thoughts that you would be better off or of hurting yourself in some way: not at all Total score: 0 Depression Screening Interpretation: Negative Depression Screening Done: Yes 64208 - PHQ-9 Billing: Yes Source: Developed by Drs. Jamar Zamora, Milana Macario, Gagan Bro and colleagues, with an educational sybil from [employer]. Thrive Questionnaire Date Thrive assessed: 04/04/24 I am a: Patient What is your living situation today?: I have a steady place to live Within the past 12 months, did the food you bought not last and you didn't have the money to get more?: Often true Within the past 12 months, did you worry whether your food would run out before you got money to buy more?: Sometimes True Do you have trouble paying for medicines?: No Do you have trouble getting transportation to medical appointments?: No Do you have trouble paying your heating and electricity bill?: No Do you have trouble taking care of your child, family member or friend?: No Do you have trouble with day-to-day activities such as bathing, preparing meals, shopping, managing finances, etc.?: No Are you currently unemployed and looking for a job?: No Are you interested in more education?: No Please select the resources that you would like help with: None Currently or been in a relationship where the following occur: I choose not to answer THRIVE Score: 2 AUDIT C Alcohol Use Questionnaire (AUDIT-C) 1. How often do you have a drink containing alcohol?: 2-3 times a week 2. How many drinks containing alcohol do you have on a typical day when you are drinking?: 1 or 2 3. How often do you have six or more drinks on one occasion?: Never Total Score: 3 SILVANO-7 AMB Questionnaire SILVANO-7 Date SILVANO - 7 assessed: 02/01/24 Feeling nervous, anxious, or on edge: 0 = Not at all Not being able to stop or control worryin = Not at all Worrying too much about different things: 0 = Not at all Trouble relaxin = Not at all Being so restless that it is hard to sit still: 0 = Not at all Becoming easily annoyed or irritable: 3 = Nearly every day Feeling afraid as if something awful might happen: 0 = Not at all Total SILVANO-7 score (0-4 normal; 5-9 mild; 10-14 moderate; 15-21 severe): 3 Source: Developed by Drs. Jamar Zamora, Milana Macario, Gagan Bro and colleagues, with an educational sybil from [employer]. SILVANO-7 Assessment Billing SILVANO-7 Assessment Tool: SILVANO-7 Assessment 47556 Review of Systems Const Denies body aches, Denies fatigue, Denies fever(s), Denies frequent falls, Denies headache(s) and Denies weakness Eyes Reports no additional complaints and Denies change in vision ENT Details: Itchy and flaky ears bilaterally Denies dysphagia, Denies dizziness, Denies facial pain, Denies headache(s), Denies nasal congestion and Denies odynophagia Card Denies chest pain, Denies syncope, Denies irregular heart rhythm, Denies leg edema, Denies lightheadedness and Denies dyspnea Resp Denies cough and Denies dyspnea GI Denies constipation, Denies dysphagia, Denies dyspepsia, Denies diarrhea, Denies nausea, Denies odynophagia and Denies vomiting Details: Vaginal odor Denies urinary frequency, Denies dysuria, Denies urinary hesitancy and Denies urinary urgency Musc Denies back pain and Denies myalgias Skin/Breast Reports system reviewed and no additional complaints, except as documented Neuro Denies dizziness, Denies syncope, Denies frequent falls, Denies headache(s) and Denies weakness Psych Reports no additional complaints Endo Denies fatigue Physical exam (Primary Care) Vital Signs: Last Vital Signs Pulse 76 04/04/24 08:06 BP 108/70 04/04/24 08:06 Pulse Ox 98 04/04/24 08:06 Oxygen Delivery Method Room Air 04/04/24 08:06 BMI result Body Mass Index 25.1 Tobacco/Smoking Status: Tobacco use Status Tobacco use date assessed 02/01/24 04/04/24 08:08 Patient Tobacco Use Status Former Tobacco user 04/04/24 08:08 Tobacco use type Cigarette 04/04/24 08:08 PHQ-9: PHQ-9 Score PHQ-9: Total score 0 04/04/24 08:14 Depression Screening Interpretation: Negative Thrive Assessment: Date of Thrive Assessment Date Thrive assessed 04/04/24 04/04/24 08:14 Currently or been in a relationship where the following occur: I choose not to answer Const General: cooperative, healthy appearing, comfortable and no acute distress Orientation/consciousness: patient oriented x3 HENMT Head: Yes normocephalic Ears: hearing grossly normal bilaterally, external ears normal, TM's normal bilaterally and EAC's normal General nose exam: Normal external nose present Face and sinus: Yes normal facial exam and Yes sinuses nontender Mouth: Normal oral and palatal mucosa present and tongue normal Throat: Yes posterior oropharynx normal Eyes General: appearance normal, both eyes and all related structures Conjunctivae: conjunctivae normal Pupils: Equal, round and reactive pupils present EOM: EOMs intact bilaterally and No Nystagmus present Neck Neck: Yes normal visual inspection, Yes full ROM and Yes no lymphadenopathy Chest Chest palpation & inspection: normal inspection of the chest Resp Effort & Inspection: normal respiratory effort Auscultation: clear to auscultation bilaterally, no crackles, no rales, no rhonchi, no wheezes and breath sounds present Cardio Rate: regular rate Rhythm: regular rhythm Peripheral pulses: radial pulses present and dorsalis pedis present GI Inspection: Yes normal to inspection and No Abdominal wall edema Palpation (GI): Soft to palpation, not firm and nontender Auscultation: normal bowel sounds Rectal Exam - Female: deferred General: Yes no CVA tenderness Back/Spine/Pelvis Back: no CVA tenderness Skin General skin exam: no rashes or lesions noted Neuro General: patient oriented x3 Cranial nerves: Yes Equal, round and reactive pupils present, Yes Midline tongue present, Yes Ability to bilaterally elevate shoulders present and No Nystagmus present Gait exam (Neuro): Normal gait present Extrem General: Yes normal to inspection, Yes full ROM, No no pedal edema and No edema Psych Speech and movement: Normal speech and movement present Affect: normal affect Insight: Good insight present (Psych) Judgement: Good judgement present (Psych) Assessment and Plan Assessment & Plan (1) Adult general medical exam: Code(s): Z00.00 - Encounter for general adult medical examination without abnormal findings Plan: Patient is up-to-date on all recommended routine screenings and vaccinations for her age. Blood work is up-to-date and was addressed during this visit. Follow up in 1 year or sooner if new problems arise. (2) Rash and nonspecific skin eruption: Code(s): R21 - Rash and other nonspecific skin eruption Plan: Patient has eczema in the ear canals and was previously using topical steroid oil for treatment with good improvement. Prescription sent today. (3) Vaginal odor: Code(s): N89.8 - Other specified noninflammatory disorders of vagina Plan: Patient was previously diagnosed with bacterial vaginosis and given cream for treatment and feels the cream has not been helping. Prescription for metronidazole sent to pharmacy. Advised patient to follow up if symptoms do not improve or worsen. Plan This note was constructed using voice recognition software. While every effort has been made to ensure accuracy and computer project manager, still areas may have been included sometimes these areas may affect the content or meeting of the given symptoms. Total time spent caring for the patient today was 35 minutes. This includes time spent before the visit reviewing the chart, time spent during the visit, and time spent after the visit and documentation. Medications: New fluocinolone acetonide oil 0.01% 5 drps otic (ear) left BID 7 days 20 mL 0RF metronidazole 500 mg PO BID 7 days 14 tabs 0RF Coding Level of Care Code Est Pt Prev Care 40-64y(65780) Diagnoses Adult general medical exam Z00.00 Rash and nonspecific skin eruption R21 Vaginal odor N89.8 Additional Codes SILVANO-7 Assessment Billing - SILVANO-7 Assessment Tool: SILVANO-7 Assessment 29151 ([id number])
== END 2024-04-04 08:44 | disposition home or self-care (01) ==
PROVIDERS: PCP Internal Medicine
DX: Z00.00 Encounter for general adult medical examination without abnormal findings (principal); R21 Rash and other nonspecific skin eruption; N89.8 Other specified noninflammatory disorders of vagina
CPT/HCPCS: 99213; 99396

== ENCOUNTER 2024-07-04 14:20 | Outpatient (REF) | payer BC, SELFPAY ==
[2024-07-05 13:06] LABS: Bacterial Vaginosis PCR NEGATIVE (Negative); Candida Group PCR NOT DETECTED (Not Detect); Candida glab krusei PCR NOT DETECTED (Not Detect); Trichomonas vaginalis PCR NOT DETECTED (Not Detect)
[2024-07-05 13:40] LABS: CT PCR NOT DETECTED (Not Detect.); NG PCR NOT DETECTED (Not Detect.)
== END 2024-07-04 14:21 | disposition home or self-care (01) ==
LOC: HO.LAB 14:20
PROVIDERS: Visit Provider Advanced Practice Midwife
DX: Z01.419 Encounter for gynecological examination (general) (routine) without abnormal findings (principal); N89.8 Other specified noninflammatory disorders of vagina
CPT/HCPCS: 0352U; 87491; 87591

== ENCOUNTER 2024-07-04 14:20 | Outpatient (AMB) | payer BC, SELFPAY ==
--- NOTE | 2024-07-04 14:24 | MHC.OFFVIS ---
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 She did not report a bad odor or vaginal itching or abnormal discharge. She has not been sexually active for perhaps 5 years but she is just starting to date somebody and is contemplating becoming active again. She does not have any symptoms of anything now. She is trying to catch up with all of her annual appointments since she had mammogram and colonoscopy and she is going to be find out the results of an MRI that she had done because it acted pretty badly for her this year so instead of getting another cortisone shot she is getting it evaluated and she is happy about that. [facility] Medical History Cervical spine pain Rash and nonspecific skin eruption Rash Asthma Surgical History History of left knee surgery Hx of appendectomy Family History Mother Cancer Father Heart problem Brother Colon cancer Sister Uterine cancer Social History Alcohol intake: current Alcohol intake frequency: holidays/special occasions only Patient Tobacco Use Status: Former Tobacco user Tobacco use type: Cigarette Cigarette Packs Per Day: 1 Years Smoked: 21 years stopped at 33 y/o Current occupational status: employed Current occupation: right handed - [employer] Cognitive needs: No Hearing needs: No Vision needs: No Female Reproductive History Menstrual Age of Menarche: 9 Duration of menses: other control method: none Total pregnancies: 0 Date of last pap smear: 07/03/23 (neg.2018 WNL) Date of Mammogram: 03/28/24 (negative) Physical Exam Vital Signs: Last Vital Signs BP 116/70 07/04/24 14:26 BMI result Body Mass Index 24.2 Const General: healthy appearing, comfortable, no acute distress, well developed and alert Nutritional Appearance: average body habitus Orientation/consciousness: patient oriented x3 Limitations: no limitations HEENT Head: Yes normocephalic Neck Neck: Yes normal visual inspection Chest Chest palpation & inspection: normal inspection of the chest Breast/axilla inspection: normal inspection of the breasts and normal inspection of the axillae Breast/axilla palpation: normal palpation of the breasts and normal palpation of the axillae Resp Effort & Inspection: normal respiratory effort GI Inspection: Yes normal to inspection, No Abdominal wall edema and No distended Palpation (GI): Soft to palpation and nontender Other: Normal postmenopausal vaginal exam. No lesions vagina is pink moist atrophic changes cervix pink closed smooth appears nulliparous normal clear to scant white discharge Cervix mobile nontender uterus not enlarged nontender midposition adnexa nontender patient has extremely good tone Kegel. General: Yes bladder normal to palpation External Female Exam: normal external appearance and normal appearance of the urethra Speculum Exam - Vagina: normal appearance of the vagina, normal palpation and normal vaginal discharge Speculum Exam - Cervix: normal appearance of the cervix, normal palpation and nontender Bimanual exam- vagina & uterus: normal bimanual exam, normal palpation, uterine size normal, bladder normal to palpation, consistency normal, normal palpation, uterine mobility normal, uterine shape normal, No Cervical tenderness present, non-tender and no cervical motion tenderness Bimanual Exam- Adnexa, other: normal adnexae, no masses, normal and No adnexal tenderness Neuro General: patient oriented x3 Results Reviewed Results Reviewed: Name: [place] Age/Sex: 53/F Attending: Gloria Conrad CNM : 1970 Submitted by: Gloria Conrad CNM Copies to: Tae Mills MD MR #: [id number] Status: DEP REF Collected: 06/29/23 Location: [facility] Received: 07/03/23 Interpretation General Category: Negative for intraepithelial lesion/malignancy. Adequacy: Endocervical component present. Interpretation: Reactive cellular changes. Abundant blood. HPV mRNA E6/E7: Not Detected This assay detects E6/E7 viral messenger RNA (mRNA) from 14 high-risk HPV types (16, 18, 31, 33, 35, 39, 45, 51, 52, 56, 58, 59, 66, 68) HPV testing performed by [facility], [place], [place]. See reference laboratory portion of the EMR for entire report. Clinical Information LMP: No menses Previous PAP test: 2018, WNL Material Received ThinPrep-Cervical Copies To Gloria Conrad CNM [address] [place] [address] [address] [place] [address] Tae Mills MD [address] [place] [address] [address] [place] [address] Electronically Signed By: Sandra Pascual 07/10/23 7706 The Pap Test is a screening procedure with the inherent possibility of both false negative and false positive results. Results should be interpreted in the context of historic and current clinical findings. Reliability of the Pap Test is enhanced by performing the test on a Patient: Estephania Colón Age/Sex: 53/F MR#: [id number] Page 1 of 2 Gynecologic Cytology [id number] regular repetitive basis. Patient: Estephania Colón [facility]: 53[id number]#: [id number] Assessment & Plan Assessment & Plan (1) Cervical cancer screening: Comment: pap done 06/29/23= negative with negative HPV. Code(s): Z12.4 - Encounter for screening for malignant neoplasm of cervix Category: Medical (2) Well woman exam with routine gynecological exam: Code(s): Z01.419 - Encounter for gynecological examination (general) (routine) without abnormal findings Category: Medical (3) Postmenopausal: Code(s): Z78.0 - Asymptomatic menopausal state Category: Medical Plan -----Discussed in this visit the following: healthy balanced diet, regular and consistent exercise, getting recommended health screens, doing the best she can for her particular health concerns, kegel exercises, pap smear screening and followup recommendations, mammography screening and SBE, normal changes in cycles in her life stage--- . Discussed in her case as well her history BV what BV really entails and that it can be hard of normal viviane and it is only when there is a change to viviane by introduction of something else that the system gets altered and there is a proliferation bacteria that end up causing abnormal discharge or odor, and this is the syndrome bacterial vaginosis it is fine to not necessarily to for for 7 days if the symptoms are mild so she should feel bad about not having use the whole tube in fact it is often not necessary. Also discussed [id number] treatments such as boric acid. Also reviewed what she described the 1st symptoms as pressure and during pelvic exam when I pressed upwards on bladder while doing the bimanual this is where she said she was feeling the pressure and it was at her bladder. My suspicion is that for whatever reason she had experienced and over full bladder or possibly some urinary tract infection symptoms. She had been given metronidazole pills by her care provider but nevertheless she did feel better. It did review that pressure is not symptom bacterial vaginosis inn any case discussed my recommendations for her to engage condoms and safer sex going forward. Also discussed atrophic vaginitis postmenopausal and that since it has been several years since she has been active this is possibly something she encounter as she goes forward embarking chip discuss that many to consider vaginal water-based lubricants. Also discussed going slow and gentle. 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 Orders: Orders CT NG by PCR Today N89.8 - Other specified noninflammatory disorders of vagina Bacterial Vaginosis Panel Today N89.8 - Other specified noninflammatory disorders of vagina Coding Level of Care Code Est Pt Prev Care 40-64y(02892) Diagnoses Cervical cancer screening Z12.4 Well woman exam with routine gynecological exam Z01.419 Postmenopausal Z78.0
[2024-07-04 14:26] VITALS: BP 116/70; BMI 24.2
== END 2024-07-04 15:34 | disposition home or self-care (01) ==
LOC: HO.HWSM 14:20
PROVIDERS: Visit Provider Advanced Practice Midwife
DX: Z12.4 Encounter for screening for malignant neoplasm of cervix (principal); Z01.419 Encounter for gynecological examination (general) (routine) without abnormal findings; Z78.0 Asymptomatic menopausal state
CPT/HCPCS: 99396

== ENCOUNTER 2024-11-03 08:05 | Outpatient (REF) | payer BC, SELFPAY ==
--- OUTSIDE RECORDS SUMMARY | 2024-11-03 08:18 | XMS_ITS | Patient Health Record ---
Author Organization [facility] Address [address] [place] [address] Care Team Providers Care Model Maker Plastic Name Role Phone ANGELIA CAMARILLO Primary Care Provider Meaghan Barragan Unavailable [phone] Reason For Referral No Information Medications Medication SIG (Take, Route, Frequency, Duration) Notes Start Date End Date Status Modicon (28) 0.5-35 MG-MCG 1 tablet Oral ly Once a day for 30 day(s) 11/19/2014 Active Necon /02/02 0.5/0.75/1-35 MG-MCG 1 tablet Orally Once a day for 28 days 08/27/2014 Active Problems Problem Type SNOMED Code ICD Code Onset Dates Problem Status W/U Status Risk Notes Problem Depressive disorder (77168667) Depressive disorder, not elsewhere classified (311) Active confirmed Problem Menopausal symptom (16496707) Symptomatic menopausal or female climacteric states (627.2) Active confirmed Plan Of Treatment Pending Test Test Name Order Date TSH 08/27/2014 Insurance Providers Payer Name Payer Address Payer Phone Subscriber Number Group Number Insured Name Patient Relationship to Insured Coverage Start Date Coverage End Date [facility] [address] [place] [address] [id number] Self - patient is the insured Medical (General) History Medical History History ICD Code Symptomatic menopausal or female climact radha states Symptomatic menopausal or female climact radha states Depressive disorder, not elsewhere class ified Surgical History Surgery Date(Month/Year) appendectomy 1990s
[2024-11-03 10:16] LABS: Appearance Urine Clear; Color Urine Yellow; Glucose Urine UA Negative (Negative); Leukocyte Esterase Urine Negative (Negative); Nitrite Urine Negative (Negative); Specific Gravity - Urine <= 1.005 (1.005-1.025); Urine Blood Negative (Negative); Urine Ketones Negative (Negative); Urine Protein Negative (Neg-Trace)
== END 2024-11-03 08:06 | disposition home or self-care (01) ==
LOC: HO.LAB 08:05
PROVIDERS: PCP Internal Medicine
DX: R35.89 Other polyuria (principal)
CPT/HCPCS: 81003

== ENCOUNTER 2024-11-04 12:41 | Outpatient (AMB) | payer BC, SELFPAY ==
--- NOTE | 2024-11-04 12:54 | MHC.OFFWIV ---
Intake Vital Signs 11/04/24 12:57 Weight 130 lb BP 110/70 Blood Pressure Location Lt brachial Position Sitting Pulse 77 Pulse Source Pulse Oximeter Pulse Oximetry (%) 96 Oxygen Delivery Method Room Air Intake Visit Reasons: EP UTI Intake Note: Patient here for lower back pain that has been present for a while now. Patient Tobacco Use Status: Former Tobacco user Allergies cephalexin [Keflex] Allergy (Unknown, Verified 11/04/24 12:56) hives ENVIRONMENTAL Adverse Reaction (Mild, Uncoded 11/04/24 12:56) UNKNOWN Medication List - Last Reconciled 11/04/24 by Lazaro Becerra MD ibuprofen 200 mg PO Q6H PRN Do you need a note to return to daycare/school/sports/work: No HPI EP UTI HPI Details History - The patient is a 54-year-old female presenting with persistent lower back pain. - Pain has persisted for over a month without worsening. - Urinalysis was negative for urinary tract infection despite initial suspicion. - Pain is located in the right lower back, specifically affecting the sacroiliac joint. Right side - History of osteoarthritis with former use of Motrin, discontinued due to concerns about side effects. - Improved knee pain post unspecified injection; history of knee replacement requirement. 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 Problem List - Osteoarthritis - Sacroiliac Joint Inflammation - Chronic Lower Back Pain Patient Instructions - Discontinue activities that aggravate the sacroiliac joint inflammation. - Consider using Tylenol for pain management instead of Motrin, ensuring liver enzymes are within normal limits. - If pain intensifies, discuss the option of a cortisone injection with a healthcare provider. - Monitor symptoms and seek medical advice if significant changes occur. Review of Systems - General: No fever no chills - Neurological: No headaches no dizziness - Ear nose throat: No sore throat no hearing difficulty no ear pain - Cardiovascular: No syncope, no chest pain, no palpitations - Gastrointestinal: No nausea vomiting or diarrhea - Endocrine: No polyuria polydipsia no heat intolerance - Genitourinary: No dysuria , no blood in urine Physical Exam - General: No acute distress - HEENT: No acute findings - Neck: Supple - Respiratory system: Able to talk in full sentences, no audible wheeze - Gastrointestinal: No pain Back: Pain located over right SI joint with percussion - Extremities: No new findings - 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 motor sensory intact - Skin: Normal turgor [facility] Medical History Cervical spine pain Rash and nonspecific skin eruption Rash Asthma Surgical History History of left knee surgery Hx of appendectomy Family History Mother Cancer Father Heart problem Brother Colon cancer Sister Uterine cancer Social History Alcohol intake: current Alcohol intake frequency: holidays/special occasions only Patient Tobacco Use Status: Former Tobacco user Tobacco use type: Cigarette Cigarette Packs Per Day: 1 Years Smoked: 21 years stopped at 33 y/o Current occupational status: employed Current occupation: right handed - [employer] Cognitive needs: No Hearing needs: No Vision needs: No Female Reproductive History Menstrual Age of Menarche: 9 Physical Exam Vital Signs: Last Vital Signs Pulse 77 11/04/24 12:57 BP 110/70 11/04/24 12:57 Pulse Ox 96 11/04/24 12:57 Oxygen Delivery Method Room Air 11/04/24 12:57 Assessment & Plan Assessment & Plan (1) Sacroiliitis: Code(s): M46.1 - Sacroiliitis, not elsewhere classified Plan History - The patient is a 54-year-old female presenting with persistent lower back pain. - Pain has persisted for over a month without worsening. - Urinalysis was negative for urinary tract infection despite initial suspicion. - Pain is located in the right lower back, specifically affecting the sacroiliac joint. Right side - History of osteoarthritis with former use of Motrin, discontinued due to concerns about side effects. - Improved knee pain post unspecified injection; history of knee replacement requirement. 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 Problem List - Osteoarthritis - Sacroiliac Joint Inflammation - Chronic Lower Back Pain Patient Instructions - Discontinue activities that aggravate the sacroiliac joint inflammation. - Consider using Tylenol for pain management instead of Motrin, ensuring liver enzymes are within normal limits. - If pain intensifies, discuss the option of a cortisone injection with a healthcare provider. - Monitor symptoms and seek medical advice if significant changes occur. Coding Level of Care Code Est Pt Level 3 (91967) Diagnoses Sacroiliitis M46.1
[2024-11-04 12:57] VITALS: BP 110/70; PULSE 77; O2SAT 96
--- OUTSIDE RECORDS SUMMARY | 2024-11-04 15:15 | XMS_ITS | Patient Health Record ---
[facility] Organization [facility] Address [address] [place] [address] Care Team Providers Care Agriscience Teacher Name Role Phone ANGELIA CAMARILLO Primary Care Provider Meaghan Barragan Unavailable [phone] Reason For Referral No Information Medications Medication SIG (Take, Route, Frequency, Duration) Notes Start Date End Date Status Modicon (28) 0.5-35 MG-MCG 1 tablet Oral ly Once a day for 30 day(s) 11/19/2014 Active Necon // 0.5/0.75/1-35 MG-MCG 1 tablet Orally Once a day for 28 days 08/27/2014 Active Problems Problem Type SNOMED Code ICD Code Onset Dates Problem Status W/U Status Risk Notes Problem Depressive disorder (07483628) Depressive disorder, not elsewhere classified (311) Active confirmed Problem Menopausal symptom (21560380) Symptomatic menopausal or female climacteric states (627.2) Active confirmed Plan Of Treatment Pending Test Test Name Order Date TSH 08/27/2014 Insurance Providers Payer Name Payer Address Payer Phone Subscriber Number Group Number Insured Name Patient Relationship to Insured Coverage Start Date Coverage End Date [facility] [id number] [place] [address] [id number] Self - patient is the insured Medical (General) History Medical History History ICD Code Symptomatic menopausal or female climact radha states Symptomatic menopausal or female climact radha states Depressive disorder, not elsewhere class ified Surgical History Surgery Date(Month/Year) appendectomy 1990s
--- OUTSIDE RECORDS SUMMARY | 2024-11-04 15:15 | XMS_ITS | Data Portability ---
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 Plan of Treatment Reminders Order Date Submit Date Provider Last Modified By Organization Details Last Modified Time Details Appointments RECHECK 15 2024 03:45P Lalit Vizcaino PA-C Not available Not available Not available Lab None recorded . Referral None recorded . Procedures None recorded . Surgeries None recorded . Imaging MRI, knee, w/o contrast - MRI left knee no contrast r/o tear and eval patholog y 2023 024 eileen [facility] ([facility]), [address], [place], [address], 07/03/2024 10:10:05 XR, knee, 4 or more view - 220 2023 024 emmett [facility], [address], [facility] [address], [place], [address], 03/28/2024 08:06:51 Medication Orders None recorded . Patient TargetsNo targets recorded. Patient InstructionsNo instructions recorded. Reason for Referral None Reported. Results Created Date Observation Date Name Description Value Unit Range Abnormal Flag Note LastModifiedBy Organization Detail LastModifiedTime 03/07/20 24 03/07/2024 XR, knee, 4 or more view [email or web address] ?Encry pted=s hAaTro YD8dLq bEUv6g %2BXZw aYqtaq 0bqfl% 2Fg9IQ a4ajBk vP9nXo QUaueC m3YtLR FvZlgJ JJ8mAn HZtai3 8w2285 AC0Kob XiAVar eUC8mr 84%3D INTERFACE [facility] [address], [place], [address], 03/07/2024 15:39:59 03/07/20 24 03/07/2024 XR, knee, 4 or more view [email or web address] ?Encry pted=s hAaTro YD8dLq bEUv6g %2BXZw aYqtaq 0bqfl% 2Fg9IQ a4ajBk vP9nXo QUaueC m3YtLR FvZlgJ JJ8mAn HZtai3 1q8973 AC0Kob XiAVar eUC8mr 84%3D INTERFACE [facility] [address], [place], [address], 03/07/2024 15:40:01 06/23/20 24 06/21/2024 MRI, knee, w/o contr ast [facility] Access ion Number : [id number] Name: Estephania Carrasco Record Number : [id number] Date of : 1969 Date of Exam: 2023 Referr ing Physic pearl: Randi Dhillon [address] [facility], [facility] [address] Exam: MR Knee (C-) CPT 48405 - Left Room Descri ption: [facility] Pion 3T MR Knee (C-) CPT 91921 CLINIC AL INDICA TION: Reason For Exam: M17.0 - Bilate ral primar y osteoa rthrit is of knee, , MRI left knee no contra st r/o tear and eval pathol ogy Reason For Exam: M17.0 - Bilate ral primar y osteoa rthrit is of knee, , MRI left knee no contra st r/o tear and eval pathol ogy TECHNI QUE: MRI of the left knee was perfor med withou t intrav enous contra st. COMPAR TREMAYNE: None FINDIN GS: Joint effusi on: No joint effusi on is presen t. Hoffa' s fat pad is unrema rkable . Small Root' s cyst. Menisc i: Medial menisc us: Comple x degene rative tear of the menisc al body Latera l menisc us: intact Tendon s and ligame nts: ACL and PCL are intact . MCL, LCL comple x and poplit eus insert ion are intact . Extens or mechan ism is intact . Bone and articu lar cartil age: Full-t hickne ss thinni ng of the medial tibiof emoral articu lar cartil age with accomp anying subcho ndral sclero sis and marrow edema. Mild chondr al fissur ing along the median patell ar ridge. Medial and latera l tibiof emoral margin al osteop hytes are presen t. Alignm ent is within normal limits . No eviden ce of acute fractu re or bone marrow contus ion. IMPRES MERRICK: Comple x degene rative tear of the medial menisc al body and full-t hickne ss chondr al thinni ng within the medial tibiof emoral compar tment Mild chondr omalac ia patell a Electr onical ly Signed By: Miguel [email or web address] [facility] ([facility]) [address], [place], [address], 06/23/2024 13:37:14 Result Notes None recorded. Problems Name Problem SNOMED Code Status Onset Date Resolution Date Notes Provider Name and Address Organization Details Recorded Time Pain of left knee joint 1131344415033 07 Active 2023 Randi Thomas i, PA-C [address], [place], [address], [facility] 12:48:03 Osteoarthri tis of left knee joint 4961312316811 09 Active 2023 Randi Pinto PA-C [address], [place], [address], [facility] 5 12:18:08 Bilateral osteoarthri tis of knees 8748994543869 07 Active 2023 Randi Thomas i, PA-C [address], [place], [address], [facility] 4 16:45:24 Pain of bilateral knee joints 9066895787234 04 Active 2023 Randi Thomas i, PA-C [address], [place], [address], [facility] 4 08:40:16 Problem Notes None recorded. Procedures Surgical History Date Name Laterality Status Provider Name and Address Organization Details Recorded Time 5 Zilretta Knee Injection, L/R completed Randi Pinto PA-C [address], [place], [address], [facility] 10/13/2024 12:16:57 4 Sports Knee 4&1 completed Randi Dumont PA-C [address], [place], [address], [facility] 07/11/2024 14:58:16 4 Sports Knee 4&1 completed Randi Dumont PA-C [address], [place], [address], [facility] 03/07/2024 12:50:13 Imaging Results Imaging Date Name Status LastModified by Organiz ation Details LastModified Time 03/07/2024 XR, knee, 4 or more view completed INTERFACE [facility] [address], [place], [address], 03/07/2024 15:39:59 03/07/2024 XR, knee, 4 or more view completed INTERFACE [facility] [address], [place], [address], 03/07/2024 15:40:01 06/21/2024 MRI, knee, w/o contrast completed [email or web address] [facility] ([facility]) [address], [place], [address], 06/23/2024 13:37:14 Procedure Notes None recorded. Medical Equipment None Reported. Allergies Allergen ID Allergen Name Allergen Category Reaction Reaction Severity Criticality Documentation Date Start Date Code Code System Note Provider Name and Address Organization Details Recorded Time 771508 cephalexi n medicatio n hives Not available Not available 03/07/20241 RxNorm Randi Thomas i, PA-C [address], [place], [address] , [facility] 12:48:51 Medications Name Sig Start Date Stop Date Status Note LastModified by Organization Details LastModified Time metronidazo le 0.75 % (37.5 mg/5 gram) vaginal gel INSERT 1 APPLICATO RFUL VAGINALLY AT BEDTIME FOR 5 DAYS 03/07 completed Not Available Not Available Not Available metronidazo le 500 mg tablet TAKE 1 TABLET BY MOUTH TWICE DAILY FOR 7 DAYS 09/12 completed Not Available Not Available Not Available IBU 600 mg tablet Take 1 tablet 3 times a day by oral route. active Not Available Not Available No t Available bisacodyl 5 mg tablet,merritt yed release 03/07 completed Not Available Not Available Not Available fluocinolon e acetonide oil 0.01 % ear drops INSTILL 5 DROPS INTO THE LEFT EAR TWICE DAILY FOR 7 DAYS 09/12 completed Not Available Not Available Not Available GaviLyte-G 236 gram-22.74 gram-6.74 gram-5.86 gram oral solution 03/07 completed Not Available Not Available Not Available Vitals Date Recorded Body height Body mass index (BMI) Body weight Provider Name and Address Organization Details Last Updated DateTime 03/07/2024 154.94 cm 26.1 kg/m2 71435.75 g LEYLA Kelly [facility] 03/07/2024 15:28:22 Date Recorded Body height Body mass index (BMI) Body weight Provider Name and Address Organization Details Last Updated DateTime 06/13/2024 154.94 cm 24.2 kg/m2 10526.82 g DELANO L'GISELEEUX [facility] 06/13/2024 14:54:42 Date Recorded Body height Body mass index (BMI) Body weight Provider Name and Address Organization Details Last Updated DateTime 07/11/2024 154.94 cm 24.2 kg/m2 54309.82 g Yvonne Eastman [facility] 07/11/2024 14:26:51 Date Recorded Body height Body mass index (BMI) Body weight Provider Name and Address Organization Details Last Updated DateTime 09/12/2024 154.94 cm 24.2 kg/m2 72730.82 g trent marquis [facility] 09/12/2024 14:37:47 Date Recorded Body height Body mass index (BMI) Body weight Provider Name and Address Organization Details Last Updated DateTime 10/13/2024 154.94 cm 24.6 kg/m2 09423.01 g Yvonne Groverton [facility] 10/13/2024 13:55:25 Social History Question Answer Notes LastModified by Organizat ion Details LastModified Time Tobacco Smoking Status [facility] 03/07/2024 15:28:51 What Is Your Level Of Alcohol Consumption? Occasional Information not available 03/07/2024 How Many Times Per Week Do You Consume Alcohol? 1-2 Times Per Week Information not available 03/07/2024 Which Illicit Or Recreational Drugs Have You Used? Marijuana Information not available 03/07/2024 When Did You Quit Smoking? 16+yearssincel astcigarette Information not available 03/07/2024 Have You Ever Been Counseled For Unhealthy Alcohol Use? No Information not available 03/07/2024 Do You Use Any Illicit Or Recreational Drugs? Yes Information not available 03/07/2024 Do You Or Have You Ever Used Any Other Forms Of Tobacco Or Nicotine? No Information not available 03/07/2024 Sex: Unknown Functional Status None recorded. Mental Status None recorded. Family History Nothing Reported. Medical History Condition Response Allergies/Hayfever N Coronary Artery Disease N Breathing or lung disorders N Anxiety/Depression N Emphysema N Nerve Disorders N Thyroid Problems N COPD N Pacemaker N Kidney/Bladder Problems N Anemia N Vascular Disease N Heart Trouble N Heart Attack (CA) N Gastrointestinal Disease N Cholesterol N Diabetes N Autoimmune disease N Inflammatory Joint disease N Bleeding Disorder N Orthotics N Seizures/Epilepsy N Arthritis Y Blood Clot N AIDS/HIV N Congestive Heart Failure (CHF) N Acid Reflux (GERD) N Cancer N Stroke N Asthma N Circulation Problems N Peripheral Vascular Disease N Sleep Apnea N Hepatitis N Heart Disease N Rheumatoid Arthritis N Pulmonary Embolism N Arrhythmia N Headaches N Fibromyalgia N Hypertension N Osteoporosis N Gynecological HistoryNo gynecological history recorded. Obstetrics History GPAL:G 0 P 0 0 0 0 Past Encounters Encounter ID Performer Location Encounter Start Date Encounter Closed Date Diagnosis/Indication Diagnosis SNOMED-CT Code Diagnosis ICD10 Code Diagnosis Note [id number] Randi Dumont PA-C [facility] [address] [place] [address] 03/07/2024 15:23:05 03/28/2024 08:06:51 Pain of bilateral knee joints 2403602599 44217 M25.561 M25.562 Bilateral osteoarthritis of knees 1748591278 46011 M17.0 [id number] Randi Dumont PA-C [facility] [address] [place] [address] 06/13/2024 14:41:34 07/03/2024 10:10:05 Bilateral osteoarthritis of knees 9377891458 03491 M17.0 [id number] Randi Dumont PA-C [facility] [address] [place] [address] 07/11/2024 14:15:23 07/31/2024 14:17:43 Bilateral osteoarthritis of knees 0963509005 67637 M17.0 [id number] Randi Pinto PA-C [facility] [address] [place] [address] 09/12/2024 14:28:03 10/01/2024 07:36:10 Bilateral osteoarthritis of knees 4735341115 10354 M17.0 [id number] [facility] [address] [place] [address] 10/13/2024 13:51:27 10/27/2024 13:46:36 Osteoarthritis of left knee joint 7471234790 46225 M17.12 Health Concerns Section Related Observation LastModified by Organization Detai ls LastModified Time None Recorded Concern Status LastModified by Organization Details LastModified Time None Recorded Advance Directives Directive None Recorded Payers Encounter Date Sequence Insurance Name Policy Number Policy Pandey Covered Member ID Pandey Member ID Guarantor Name 06/13/2024 1 [place] [facility] [place] [id number] Estephania Eldon [id number] Estephania Meigs 07/11/2024 1 [place] [facility] [place] [place] [id number] Estephania Meigs [id number] Estephania Eldon 10/13/2024 1 [place] [facility] [place]sta™ [place] [facility] [place] [id number] Estephania Eldon [id number] Estephania Eldon Notes Date Note Type Note Provider Name and Address Organization Details Recorded Time 4 text/html I am seeing the patient today under the supervision of {{Neftali welch Qamarstephania [employer]}} who was available but who did not see the patient. HPI: 53-year-old female patient presents today for bilateral knee pain, left worse than right. History of left knee menisectomy at [facility] 10+ years ago, no records available today. Localizes the pain to the lateral aspect of her left knee especially and a crepitus, popping sensation. Occasionally describes knee locking and having to unlock her knee. Pain exacerbated by squatting, pivoting, at night, getting up from a seated position. About 5 years ago received a cortisone injection at [facility] with good relief. She takes motrin daily. Past family, social history and review of systems has been reviewed, updated and is located in the patient? s chart. X-RAYS:4v X-rays of the {{Right Left* Bilateral}} knee were ordered, obtained and reviewed today at [facility] demonstrate moderate medial compartment narrowing on the left with early medial femoral condyle osteophyte formation, while on the right more mild to moderate with no osteophyte formation. Moderate patellofemoral space narrowing bilaterally with osteophyte formation. IMPRESSION: {{Right Left Bilateral*}} knee osteoarthritis, left more symptomatic than rightPLAN: Findings reviewed. Discussed it's possible she has an underlying meniscus tear that occasionally causes her knee to catch, however, she hasn't had any recent treatment for her osteoarthritis. She elected to proceed with left knee cortisone injection today. Follow up in 3 months for recheck, could consider repeat cortisone, viscosupplementation or MRI to determine role of arthroscopy depending on her symptoms. Recommended over the counter anti-inflammatories as needed, follow up yearly with her PCP for labs. Discussed low impact exercise. All of her concerns are addressed and she understands and agrees with the plan. Speech recognition feather stitcher software was used to create portions of this document. An attempt at proofreading has been made to minimize errors. Please call for corrections. Randi Dumont PA-C [address] [place] [address] [address], [place], [address], [facility] 03/07/2024 16:46:33 4 text/html I am seeing the patient today under the supervision of {{Thomas* Jasmin Velez rebekah [employer]}} who was available but who did not see the patient. CLINICAL UPDATE: 54-year-old female patient presents today for bilateral knee recheck, left worse than right. Last bilateral knee cortisone injections 03/07/24 provided good relief. She has lost some weight by increasing exercise, notes decreased crepitus about her knees. However, she continues to describe episodes of her left knee locking and having severe pain. She has a vacation scheduled in June to [place]. HPI: History of left knee menisectomy at [facility] 10+ years ago, no records available today. Localizes the pain to the lateral aspect of her left knee especially and a crepitus, popping sensation. Occasionally describes knee locking and having to unlock her knee. Pain exacerbated by squatting, pivoting, at night, getting up from a seated position. About 5 years ago received a cortisone injection at [facility] with good relief. She takes motrin daily. Past family, social history and review of systems has been reviewed, updated and is located in the patient? s chart. X-RAYS:Previous 4v X-rays of the {{Right Left* Bilateral}} knee reviewed today at [facility] demonstrate moderate medial compartment narrowing on the left with early medial femoral condyle osteophyte formation, while on the right more mild to moderate with no osteophyte formation. Moderate patellofemoral space narrowing bilaterally with osteophyte formation. IMPRESSION: {{Right Left Bilateral*}} knee osteoarthritis, left more symptomatic than right PLAN: Findings reviewed. Discussed it's possible she has an underlying meniscus tear that occasionally causes her knee to catch. We will order an MRI of the left knee to further evaluate for meniscus tear. Follow-up for MRI review and ongoing treatment discussion. We did discuss based on the results we may be able to consider left knee arthroscopy versus ongoing treatment for her arthritis including cortisone injection which may be her best option prior to her vacation in June. Recommended over the counter anti-inflammatories as needed, follow up yearly with her PCP for labs. Discussed low impact exercise. Follow-up for MRI review. All of her concerns are addressed and she understands and agrees with the plan. Speech recognition feather stitcher software was used to create portions of this document. An attempt at proofreading has been made to minimize errors. Please call for corrections. Randi Dumont PA-C [address] [place] [address] [address], [place], [address], [facility] 06/13/2024 15:42:24 4 text/html I am seeing the patient today under the supervision of {{Thomas Kern* L rebekah [employer]}} who was available but who did not see the patient. CLINICAL UPDATE: 54-year-old female patient presents today for bilateral knee recheck, left worse than right. Here today to review left knee MRI. reports sharp stabbing pain medial aspect, intermittent. Last bilateral knee cortisone injections 03/07/24 provided good relief, her right knee is stil feeling good. HPI: History of left knee menisectomy at [facility] 10+ years ago, no records available today. Localizes the pain to the medial and lateral aspect of her left knee especially and a crepitus, popping sensation. Occasionally describes knee locking and having to unlock her knee. Pain exacerbated by squatting, pivoting, at night, getting up from a seated position. About 5 years ago received a cortisone injection at [facility] with good relief. She takes motrin daily. Past family, social history and review of systems has been reviewed, updated and is located in the patient? s chart.X-RAYS:Previous 4v X-rays of the {{Right Left* Bilateral}} knee reviewed today at [facility] demonstrate severe medial compartment narrowing on the left with early medial femoral condyle osteophyte formation, while on the right more mild to moderate with no osteophyte formation. Moderate patellofemoral space narrowing bilaterally with osteophyte formation. MRI Bwqiukl77/23/24 of the left knee independently reviewed today demonstrates: No joint effusion. Small Root's cyst. Complex degenerative tear of the meniscal body of medial meniscus. Lateral meniscus intact. ACL and PCL intact. Full thickness medial compartment cartilage loss with bony edema and sclerosis. Mild chondromalacia patella. IMPRESSION: Left knee - medial compartment osteoarthritis with underlying degenerative medial meniscus tear, patellar chondromalacia PLAN: Findings reviewed. Discussed knee arthroscopy will likely not provide her with much relief given her osteoarthritis. Discussed conservative treatment options, she elected to proceed with left knee cortisone injection today as she has an upcoming vacation. Discussed viscosupplementation and likely definitive total knee arthroplasty in the future. Recommended over the counter anti-inflammatories as needed, follow up yearly with her PCP for labs. Reviewed low impact exercise. Follow-up in 3 months for recheck. All of her concerns are addressed and she understands and agrees with the plan. Speech recognition feather stitcher software was used to create portions of this document. An attempt at proofreading has been made to minimize errors. Please call for corrections. Randi Dumont PA-C [address] [facility] [address] [facility], [place], [address], [facility] 07/11/2024 14:58:56 5 text/html I am seeing the patient today under the supervision of DrMercedes {{Thomas Kren* L rebkeah [employer]}} who was available but who did not see the patient. CLINICAL UPDATE: 54-year-old female patient presents today for bilateral knee recheck, left worse than right. Reports sharp stabbing pain medial aspect, intermittent. Last left knee cortisone injection 07/11/24 provided mild relief. Her insurance denied gel injections. White sheet was submitted to Dr. Grace, patient now reports she wants to avoid surgery. Sammy jolly was sent to her insurance and is pending. HPI: History of left knee menisectomy at [facility] 10+ years ago, no records available today. Localizes the pain to the medial and lateral aspect of her left knee especially and a crepitus, popping sensation. Occasionally describes knee locking and having to unlock her knee. Pain exacerbated by squatting, pivoting, at night, getting up from a seated position. About 5 years ago received a cortisone injection at [facility] with good relief. She takes motrin daily. Past family, social history and review of systems has been reviewed, updated and is located in the patient? s chart.X-RAYS:Previous 4v X-rays of the {{Right Left* Bilateral}} knee reviewed today at [facility] demonstrate severe medial compartment narrowing on the left with early medial femoral condyle osteophyte formation, while on the right more mild to moderate with no osteophyte formation. Moderate patellofemoral space narrowing bilaterally with osteophyte formation. MRI Taqwevd20/23/24 of the left knee reviewed today demonstrates: No joint effusion. Small Root's cyst. Complex degenerative tear of the meniscal body of medial meniscus. Lateral meniscus intact. ACL and PCL intact. Full thickness medial compartment cartilage loss with bony edema and sclerosis. Mild chondromalacia patella. IMPRESSION: Left knee - medial compartment osteoarthritis with underlying degenerative medial meniscus tear, patellar chondromalacia PLAN: Findings reviewed. Discussed knee arthroscopy will likely not provide her with much relief given her osteoarthritis. She has tried cortisone injections with mild relief. Insurance denied viscosupplementation. Sammy jolly is pending, I am happy to squeeze her in as soon as possible for this if approved. If not, patient would like to pay out of pocket for viscosupplementation. She is hoping to avoid surgery at this time. Recommended over the counter anti-inflammatories as needed, follow up yearly with her PCP for labs. Reviewed low impact exercise. All of her concerns are addressed and she understands and agrees with the plan. Speech recognition feather stitcher software was used to create portions of this document. An attempt at proofreading has been made to minimize errors. Please call for corrections. Randi Pinto PA-C [address], [place], [address], [facility] [facility] 09/12/2024 14:57:29 5 text/html I am seeing the patient today under the supervision of {{Thomas Barbosa* [employer] Castell[employer]}} who was available but who did not see the patient. Subjective:Patient is here today for {{gelsyn 3 euflexxa hymovis Gel One Zilretta#}} injection of {{right left* bilateral}} knee. Last left knee cortisone injection 07/11/24 provided mild relief. Her insurance denied gel injections. White sheet was submitted to Dr. Grace, patient now reports she wants to avoid surgery. MRI Gomez 06/21/24 of the left knee reviewed today demonstrates: No joint effusion. Small Root's cyst. Complex degenerative tear of the meniscal body of medial meniscus. Lateral meniscus intact. ACL and PCL intact. Full thickness medial compartment cartilage loss with bony edema and sclerosis. Mild chondromalacia patella. Objective:Evaluation of {{right left* bilateral}} knee reveal no evidence of infection, no significant joint effusion, no warmth, or erythema. The injection sites are benign. Calves are supple and nontender. 5/5 strength. Some discomfort with range of motion Assessment:{{right left* bilateral}} knee osteoarthritis Plan:After meticulous sterile preparation, {{right left* bilateral}} knee injected with {{gelsyn 3 euflexxa hymovis Gel One Zilretta#}}. Post-injection precautions were reviewed. I recommend ice, restriction of activities and follow up {{next week as needed*}}. Speech recognition feather stitcher software was used to create portions of this document. An attempt at proofreading has been made to minimize errors. Please call for corrections. Randi Pinto PA-C [address], [place], [address], [facility] - [facility] 10/13/2024 14:23:47 OBGyn Episode No OBEpisode recorded.
== END 2024-11-04 13:20 | disposition home or self-care (01) ==
PROVIDERS: PCP Internal Medicine; Visit Provider Internal Medicine
DX: M46.1 Sacroiliitis, not elsewhere classified (principal)

== ENCOUNTER → 2024-11-04 12:41 | Outpatient (BNVA) | payer BC, SELFPAY | PROVIDERS: PCP Internal Medicine; Visit Provider Internal Medicine ==

== ENCOUNTER 2024-11-07 16:15 | Outpatient (AMB) | payer BC, SELFPAY ==
--- OUTSIDE RECORDS SUMMARY | 2024-11-07 16:18 | XMS_ITS | Patient Health Record ---
Author Organization [facility] Address [address] [place] [address] Care Team Providers Care Hardware Assembler Name Role Phone ANGELIA CAMARILLO Primary Care Provider Meaghan Barragan Unavailable [phone] Reason For Referral No Information Medications Medication [...] W/U Status Risk Notes Problem Depressive disorder (16931523) Depressive disorder, not elsewhere classified (311) Active confirmed Problem Menopausal symptom (02646097) Symptomatic menopausal or female climacteric states (627.2) Active confirmed Plan Of Treatment Pending Test Test Name Order Date TSH 08/27/2014 Insurance Providers Payer Name Payer Address Payer Phone Subscriber Number Group Number Insured Name Patient Relationship to Insured Coverage Start Date Coverage End Date [facility] [address] [place] [address] [id number] Self - patient is the insured Medical (General) History Medical History History ICD Code Symptomatic menopausal or female climact radha states Symptomatic menopausal or female climact radha states Depressive disorder, not elsewhere class ified Surgical History Surgery Date(Month/Year) appendectomy 1990s
[2024-11-07 16:20] VITALS: BP 116/68; PULSE 84; RESP 16; TEMP 37.1; O2SAT 97; BMI 24.0
--- NOTE | 2024-11-07 16:20 | A.OFFPC_ITS ---
Vital Signs 11/07/24 16:20 Height 5 ft 1 in Weight 127 lb 3.2 oz BMI 24.0 BP 116/68 Blood Pressure Location Lt brachial Position Sitting Respiration 16 Pulse 84 Pulse Source Pulse Oximeter Temp 98.8 F Temp Source Oral Pulse Oximetry (%) 97 Oxygen Delivery Method Room Air Intake Visit Reasons: lower back pain Access Developer Required: No Accompanied by: Self / Same As Patient Allergies cephalexin [Keflex] Allergy (Unknown, Verified 11/07/24 16:53) hives ENVIRONMENTAL Adverse Reaction (Mild, Uncoded 11/07/24 16:53) UNKNOWN Medication List - Last Reconciled 11/07/24 by ALEJANDRA Mendez No Known Home Meds Tobacco use date assessed: 11/07/24 Dental Screening Dental Screen Date: 11/07/24 Did you have a dental visit in the last 12 months?: Yes Did you have a dental problem in the last 6 months where you did not have access to dental care?: No Was dental information given to patient?: Patient has dentist HPI lower back pain HPI Details Patient is a 54-year-old female with significant past medical history of bilateral primary osteoarthritis of the knee Patient is presenting with 1-1/2-2 months ago pain in lower back Reports that she went to the urgent care in the past and was checked for UTI, which was negative Reports history of osteoarthritis of both knees and status post injection with p ositive effects Reports stopped taking Motrin due to possible side effects but is wondering if she should restart this Patient reports that her job requires her to do a lot of bending. She denies any injuries. Denies any radiation of pain. Her pain is primarily in the lower right back. No tenderness with palpation no edema noted at site. SLR negative. Muscular related suspicion. [facility] Medical History Cervical spine pain Rash and nonspecific skin eruption Rash Asthma Surgical History History of left knee surgery Hx of appendectomy Family History Mother Cancer Father Heart problem Brother Colon cancer Sister Uterine cancer Social History Housing: House Alcohol intake: current Alcohol intake frequency: holidays/special occasions only Patient Tobacco Use Status: Former Tobacco user Tobacco use type: Cigarette Cigarette Packs Per Day: 1 Years Smoked: 21 years stopped at 33 y/o e-Cigarette/Vaping Use: Never Used service: No Current occupational status: employed 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 1. Little interest or pleasure in doing things: not at all 2. Feeling down, depressed, or hopeless: not at all 3. Trouble falling or staying asleep, or sleeping too much: several days 4. Feeling tired or having little energy: not at all 5. Poor appetite or overeating: not at all 6. Feeling bad about yourself - or that you are a failure or have let yourself or your family down: not at all 7. Trouble concentrating on things, such as reading the newspaper or watching television: not at all 8. Moving or speaking so slowly that other people could have noticed. Or the opposite - being so fidgety or restless that you have been moving around a lot more than usual: not at all 9. Thoughts that you would be better off or of hurting yourself in some way: not at all Total score: 1 Depression Screening Interpretation: Negative Depression Screening Done: Yes 58420 - PHQ-9 Billing: Yes Source: Developed by Drs. Jamar Zamora, Milana Macario, Gagan Bro and colleagues, with an educational sybil from [employer]. Thrive Questionnaire Date Thrive assessed: 11/07/24 I am a: Patient What is your living situation today?: I have a steady place to live Within the past 12 months, did the food you bought not last and you didn't have the money to get more?: Never true Within the past 12 months, did you worry whether your food would run out before you got money to buy more?: Never true Do you have trouble paying for medicines?: No Do you have trouble getting transportation to medical appointments?: No Do you have trouble paying your heating and electricity bill?: No Do you have trouble taking care of your child, family member or friend?: No Do you have trouble with day-to-day activities such as bathing, preparing meals, shopping, managing finances, etc.?: No Are you currently unemployed and looking for a job?: No Are you interested in more education?: No Please select the resources that you would like help with: None Currently or been in a relationship where the following occur: No concerns reported THRIVE Score: 0 AUDIT C Alcohol Use Questionnaire (AUDIT-C) 1. How often do you have a drink containing alcohol?: 2-3 times a week 2. How many drinks containing alcohol do you have on a typical day when you are drinking?: 3 or 4 3. How often do you have six or more drinks on one occasion?: Never Total Score: 4 Score Reviewed/Action Taken: Yes SILVANO-7 AMB Questionnaire SILVANO-7 Date SILVANO - 7 assessed: 11/07/24 Feeling nervous, anxious, or on edge: 0 = Not at all Not being able to stop or control worryin = Not at all Worrying too much about different things: 0 = Not at all Trouble relaxin = Not at all Being so restless that it is hard to sit still: 0 = Not at all Becoming easily annoyed or irritable: 0 = Not at all Feeling afraid as if something awful might happen: 0 = Not at all Total SILVANO-7 score (0-4 normal; 5-9 mild; 10-14 moderate; 15-21 severe): 0 Source: Developed by Drs. Jamar Zamora, Milana Macario, Gagan Bro and colleagues, with an educational sybil from [employer]. SILVANO-7 Assessment Billing SILVANO-7 Assessment Tool: SILVANO-7 Assessment 38596 Review of Systems Card Denies chest pain, Denies leg edema and Denies lightheadedness Resp Denies cough and Denies hemoptysis GI Denies abdominal pain Denies urinary frequency, Denies dysuria and Denies urinary urgency Musc Reports back pain (Low back, right side), Reports arthralgias (History-feeling much better post-injection), Denies numbness, Denies radiating pain into limb and Denies tingling Neuro Denies Abnormal speech present, Denies numbness and Denies tingling Physical exam (Primary Care) Vital Signs: Last Vital Signs Temp 98.8 F 11/07/24 16:20 Pulse 84 11/07/24 16:20 Resp 16 11/07/24 16:20 BP 116/68 11/07/24 16:20 Pulse Ox 97 11/07/24 16:20 Oxygen Delivery Method Room Air 11/07/24 16:20 BMI result Body Mass Index 24.0 Tobacco/Smoking Status: Tobacco use Status Tobacco use date assessed 11/07/24 11/07/24 16:23 Patient Tobacco Use Status Former Tobacco user 11/07/24 16:23 Tobacco use type Cigarette 11/07/24 16:23 e-Cigarette/Vaping Use Never Used 11/07/24 16:46 PHQ-9: PHQ-9 Score PHQ-9: Total score 1 11/07/24 17:12 Depression Screening Interpretation: Negative Thrive Assessment: Date of Thrive Assessment Date Thrive assessed 11/07/24 11/07/24 16:23 Currently or been in a relationship where the following occur: No concerns reported Const General: healthy appearing, no acute distress, alert and awake Nutritional Appearance: well nourished Orientation/consciousness: oriented to person, oriented to place and oriented to time HENMT Ears: external ears normal General nose exam: Normal external nose present Eyes Conjunctivae: conjunctivae normal Sclerae: sclerae normal Pupils: Equal, round and reactive pupils present Neck Neck: Yes no lymphadenopathy and Yes no JVD Thyroid: Thyroid normal Carotids: no bruits Resp Effort & Inspection: normal respiratory effort and not tachypneic Auscultation: no crackles, no rales, no rhonchi and no wheezes Cardio Rate: regular rate Rhythm: regular rhythm Heart sounds: no murmurs and normal S1 and S2 GI Palpation (GI): Soft to palpation and nontender Auscultation: normal bowel sounds General: Yes no CVA tenderness Back/Spine/Pelvis Back: no CVA tenderness Thoracic/Lumbar Spine: straight leg raise negative bilaterally, No thoracic spi nal tenderness and No lumbar spinal tenderness Neuro General: oriented to person, oriented to place and oriented to time Cranial nerves: Yes Equal, round and reactive pupils present Speech: No Abnormal speech present Gait exam (Neuro): Normal gait present Motor exam (neuro): no tremor noted Extrem Right upper extremity: full ROM Left upper extremity: full ROM Right lower extremity: full ROM; no edema Left lower extremity: full ROM; no edema Coding Level of Care Code Est Pt Level 3 (75719) Diagnoses Chronic right-sided low back pain without sciatica M54.50; G89.29 Chronicity: chronic Back pain laterality: right Sciatica presence: without sciatica Additional Codes SILVANO-7 Assessment Billing - SILVANO-7 Assessment Tool: SILVANO-7 Assessment 60979 ([id number]) PHQ-9 - 52374 - PHQ-9 Billing: Yes ([id number]) Time Spent (min) 36 Assessment & Plan Assessment & Plan (1) Lower back pain: Code(s): M54.50 - Low back pain, unspecified Category: Medical Qualifiers: Chronicity: chronic Back pain laterality: right Sciatica presence: without sciatica Qualified Code(s): M54.50 - Low back pain, unspecified; G89.29 - Other chronic pain Plan: Patient reports going to the urgent care with similar complaints. And she was checked for UTI which came back negative. Reports that she was taking Motrin in her pain was much better. Stopped taking Motrin after reading the side effects. Discussed with the patient that she will be more at risk if she takes an increased amount of Ibuprofen frequently. The patient was taking a low dose of Ibuprofen. Resume Ibuprofen as needed. Suspicion of muscular due to re petitive movements at work. Cyclobenzaprine 10 mg at bedtime p.r.n. ordered. Lumbar x-ray ordered to further evaluate. Return if symptoms worsen or not resolving Orders: Orders XR lumbar spine 2-3V Today M54.50 - Low back pain, unspecified Medications: New cyclobenzaprine 10 mg PO BEDTIME PRN 30 tabs 1RF muscle spasm
== END 2024-11-07 17:14 | disposition home or self-care (01) ==
LOC: HO.HMCH 16:15
PROVIDERS: PCP Internal Medicine
DX: M54.50 Low back pain, unspecified (principal); G89.29 Other chronic pain

== ENCOUNTER → 2024-11-07 16:15 | Outpatient (BNVA) | payer BC, SELFPAY | PROVIDERS: PCP Internal Medicine | DX: M54.50 Low back pain, unspecified (principal); G89.29 Other chronic pain; M17.0 Bilateral primary osteoarthritis of knee | CPT/HCPCS: 96127 ==

== ENCOUNTER 2024-11-08 10:39 | Outpatient (REF) | payer BC, SELFPAY ==
--- NOTE | ~2024-11-08 | XR_ITS ---
EXAMINATION: XR LUMBOSACRAL SPINE CLINICAL INFORMATION: M54.50 - Low back pain, unspecified COMPARISON: None available. TECHNIQUE: Three views of the lumbosacral spine. FINDINGS: There is maintained lumbar lordosis. There is mild dextroscoliosis mid lumbar spine. Loss of L1-2, L2-3 and L5-S1 disc height is noted. No visible acute fracture, dislocation or lytic process seen. SI joints are symmetrical and normal. The soft tissues are normal. XR/XR lumbar spine 2-3V IMPRESSION: Mild dextroscoliosis with degenerative changes L1-2 and L2-3 disc levels. Electronically signed by: Emmett Belcher MD 11/10/2024 07:15 AM EDT
--- OUTSIDE RECORDS SUMMARY | 2024-11-08 10:41 | XMS_ITS | Patient Health Record ---
Author Organization [facility] Address [address] [place] [address] Care Team Providers Care Clay Transporter Name Role Phone ANGELIA CAMARILLO Primary Care Provider Meaghan Barragan Unavailable [phone] Reason For Referral No Information Medications Medication [...] W/U Status Risk Notes Problem Depressive disorder (13931654) Depressive disorder, not elsewhere classified (311) Active confirmed Problem Menopausal symptom (55337898) Symptomatic menopausal or female climacteric states (627.2) Active confirmed Plan Of Treatment Pending Test Test Name Order Date TSH 08/27/2014 Insurance Providers Payer Name Payer Address Payer Phone Subscriber Number Group Number Insured Name Patient Relationship to Insured Coverage Start Date Coverage End Date [facility] [address] [place] [address] [id number] Self - patient is the insured Medical (General) History Medical History History ICD Code Symptomatic menopausal or female climact radha states Symptomatic menopausal or female climact radha states Depressive disorder, not elsewhere class ified Surgical History Surgery Date(Month/Year) appendectomy 1990s
== END 2024-11-08 10:40 | disposition home or self-care (01) ==
LOC: HO.XRAY 10:39
PROVIDERS: PCP Internal Medicine
DX: M54.50 Low back pain, unspecified (principal)
CPT/HCPCS: 72100

== ENCOUNTER → 2024-11-08 10:45 | Outpatient (BNV) | payer BC, SELFPAY | PROVIDERS: PCP Internal Medicine; Visit Provider Radiology Diagnostic Radiology | DX: M54.50 Low back pain, unspecified (principal); M41.80 Other forms of scoliosis, site unspecified | CPT/HCPCS: 72100 ==

== ENCOUNTER 2024-11-21 14:17 | Outpatient (AMB) | payer BC, SELFPAY ==
--- NOTE | 2024-11-21 14:22 | MHC.PC.OV ---
Vital Signs 11/21/24 14:25 11/21/24 14:54 Height 5 ft 1 in Weight 124 lb BMI 23.4 BP 130/92 H 122/82 Blood Pressure Location Lt brachial Lt brachial Position Sitting Pulse 96 Pulse Source Pulse Oximeter Temp 97.3 F Temp Source Temporal Artery Scan Pulse Oximetry (%) 97 Oxygen Delivery Method Room Air Intake Visit Reasons: kidney infection concern Intake Note: Patient is here to follow up Kidney infection concern. Manager Privacy Required: No Global Head [employer]: Not Required per policy Accompanied by: Self / Same As Patient Allergies cephalexin [Keflex] Allergy (Unknown, Verified 11/21/24 14:24) hives ENVIRONMENTAL Adverse Reaction (Mild, Uncoded 11/21/24 14:24) UNKNOWN Medication List - Last Reconciled 11/21/24 by Shelby Davis PA-C cyclobenzaprine 10 mg PO BEDTIME PRN Tobacco use date assessed: 11/21/24 Dental Screening Dental Screen Date: 11/07/24 HPI kidney infection concern HPI Details 54-year-old female with past medical history of sacroiliitis last seen by nurse practitioner 10/2024 coming in for acute problem. Presenting with concerns regarding back pain. She presents with a history of lumbar scoliosis and confirmed degenerative changes in the lumbar spine, leading to osteoarthritis at the L1-L2 and L2-L3 levels, and disc flattening. The patient describes her back pain as evolving from severe to a dull ache since receiving an injection in her knee. The chronic pain is associated with stiffness that improves with movement. She manages her pain with ibuprofen, restricting to three doses daily, which she finds beneficial. Her active employment, involving considerable walking, helps mitigate stiffness but tends to exacerbate acute pain episodes. [facility] Medical History Cervical spine pain Rash and nonspecific skin eruption Rash Asthma Surgical History History of left knee surgery Hx of appendectomy Family History Mother Cancer Father Heart problem Brother Colon cancer Sister Uterine cancer Social History Housing: House Alcohol intake: current Alcohol intake frequency: holidays/special occasions only Patient Tobacco Use Status: Former Tobacco user Tobacco use type: Cigarette Cigarette Packs Per Day: 1 Years Smoked: 21 years stopped at 33 y/o e-Cigarette/Vaping Use: Never Used service: No Current occupational status: employed Current occupation: right handed - [employer] Work at [employer] Cognitive needs: No Hearing needs: No Vision needs: Yes (Contact lenses) Female Reproductive History Menstrual Age of Menarche: 9 Questionnaire PHQ-9 Over the last 2 weeks, how often have you been bothered by any of the following problems? 1. Little interest or pleasure in doing things: not at all 2. Feeling down, depressed, or hopeless: not at all 3. Trouble falling or staying asleep, or sleeping too much: not at all 4. Feeling tired or having little energy: not at all 5. Poor appetite or overeating: not at all 6. Feeling bad about yourself - or that you are a failure or have let yourself or your family down: not at all 7. Trouble concentrating on things, such as reading the newspaper or watching television: not at all 8. Moving or speaking so slowly that other people could have noticed. Or the opposite - being so fidgety or restless that you have been moving around a lot more than usual: not at all 9. Thoughts that you would be better off or of hurting yourself in some way: not at all Total score: 0 Source: Developed by Drs. Jamar Zamora, Milana Macario, Gagan Bro and colleagues, with an educational sybil from [employer]. Thrive Questionnaire Date Thrive assessed: 11/07/24 I am a: Patient What is your living situation today?: I have a steady place to live Within the past 12 months, did the food you bought not last and you didn't have the money to get more?: I choose not to answer this question Within the past 12 months, did you worry whether your food would run out before you got money to buy more?: Never true Do you have trouble paying for medicines?: No Do you have trouble getting transportation to medical appointments?: No Do you have trouble paying your heating and electricity bill?: No Do you have trouble taking care of your child, family member or friend?: No Do you have trouble with day-to-day activities such as bathing, preparing meals, shopping, managing finances, etc.?: No Are you currently unemployed and looking for a job?: No Are you interested in more education?: No Please select the resources that you would like help with: None Currently or been in a relationship where the following occur: No concerns reported THRIVE Score: 0 AUDIT C Alcohol Use Questionnaire (AUDIT-C) 1. How often do you have a drink containing alcohol?: Never Total Score: 0 SILVANO-7 AMB Questionnaire SILVANO-7 Date SILVANO - 7 assessed: 11/07/24 Feeling nervous, anxious, or on edge: 0 = Not at all Not being able to stop or control worryin = Not at all Worrying too much about different things: 0 = Not at all Source: Developed by Drs. Jamar Zamora, Milana Macario, Gagan Bro and colleagues, with an educational sybil from [employer]. Review of Systems Const Denies body aches, Denies chills, Denies fever(s) and Denies poor appetite Eyes Reports no additional complaints Card Denies chest pain and Denies dyspnea Resp Denies dyspnea Reports no additional complaints Musc Denies abnormal gait and Reports back pain Skin/Breast Reports system reviewed and no additional complaints, except as documented Neuro Denies abnormal gait Psych Reports no additional complaints Physical exam (Primary Care) Vital Signs: Last Vital Signs Temp 97.3 F 11/21/24 14:25 Pulse 96 11/21/24 14:25 BP 130/92 H 11/21/24 14:25 Pulse Ox 97 11/21/24 14:25 Oxygen Delivery Method Room Air 11/21/24 14:25 BMI result Body Mass Index 23.4 Tobacco/Smoking Status: Tobacco use Status Tobacco use date assessed 11/21/24 11/21/24 14:28 Patient Tobacco Use Status Former Tobacco user 11/21/24 14:28 Tobacco use type Cigarette 11/21/24 14:28 e-Cigarette/Vaping Use Never Used 11/21/24 14:28 PHQ-9: PHQ-9 Score PHQ-9: Total score 0 11/21/24 14:28 Thrive Assessment: Date of Thrive Assessment Date Thrive assessed 11/07/24 11/21/24 14:28 Currently or been in a relationship where the following occur: No concerns reported Const General: cooperative, healthy appearing, comfortable and no acute distress Orientation/consciousness: patient oriented x3 HENMT Head: Yes normocephalic Ears: hearing grossly normal bilaterally General nose exam: Normal external nose present Eyes General: appearance normal, both eyes and all related structures Conjunctivae: conjunctivae normal Neck Neck: Yes full ROM and Yes no lymphadenopathy Resp Effort & Inspection: normal respiratory effort Cardio Rate: regular rate Rhythm: regular rhythm Skin General skin exam: no rashes or lesions noted Neuro General: patient oriented x3 Gait exam (Neuro): Normal gait present Extrem General: Yes normal to inspection, Yes full ROM and No edema Psych Affect: normal affect Attitude: cooperative Insight: Good insight present (Psych) Judgement: Good judgement present (Psych) Coding Level of Care Code Est Pt Level 3 (60429) Diagnoses Chronic right-sided low back pain without sciatica M54.50; G89.29 Chronicity: chronic Back pain laterality: right Sciatica presence: without sciatica Assessment & Plan Assessment & Plan (1) Lower back pain: Code(s): M54.50 - Low back pain, unspecified Category: Medical Qualifiers: Chronicity: chronic Back pain laterality: right Sciatica presence: without sciatica Qualified Code(s): M54.50 - Low back pain, unspecified; G89.29 - Other chronic pain Plan: The primary concern addressed was chronic low back pain due to scoliosis and degenerative changes, including osteoarthritis in the lumbar region. I advised the patient to continue using ibuprofen for pain relief as previously effective and suggested maintaining regular physical activity with a focus on beneficial exercises like core strengthening. The use of heating pads and routine stretching for muscle relaxation were recommended as adjunctive treatments. Plan For preventive care, we ordered measles immunity titers and reviewed her vaccination schedule, ensuring timely administration of necessary vaccines. Regular monitoring of blood pressure is recommended due to previous high readings. I ensured appropriate follow-up communication regarding her x-ray results and encouraged returning if the discomfort escalates. This note was constructed using voice recognition software. While every effort has been made to ensure accuracy and stem cleaning machine feeder, still areas may have been included sometimes these areas may affect the content or meeting of the given symptoms. Total time spent caring for the patient today was 20 minutes. This includes time spent before the visit reviewing the chart, time spent during the visit, and time spent after the visit and documentation. Patient was informed and verbally consented to the use of an ambient scribe for clinic note documentation during this visit. Orders: Orders MMR IgG Measles Mumps Rubella Today Z00.00 - Encounter for general adult medical examination without abnormal findings
[2024-11-21 14:25] VITALS: BP 130/92; PULSE 96; TEMP 36.3; O2SAT 97; BMI 23.4
[2024-11-21 14:54] VITALS: BP 122/82
--- OUTSIDE RECORDS SUMMARY | 2024-11-21 14:58 | XMS_ITS | Patient Health Record ---
Author Organization [facility] Address [address] [place] [address] Care Team Providers Care Scale Manager Name Role Phone ANGELIA CAMARILLO Primary Care Provider Meaghan Barragan Unavailable [phone] Reason For Referral No Information Medications Medication [...] W/U Status Risk Notes Problem Depressive disorder (01680301) Depressive disorder, not elsewhere classified (311) Active confirmed Problem Menopausal symptom (21870222) Symptomatic menopausal or female climacteric states (627.2) Active confirmed Plan Of Treatment Pending Test Test Name Order Date TSH 08/27/2014 Insurance Providers Payer Name Payer Address Payer Phone Subscriber Number Group Number Insured Name Patient Relationship to Insured Coverage Start Date Coverage End Date [facility] [address] [place] [address] [id number] Self - patient is the insured Medical (General) History Medical History History ICD Code Symptomatic menopausal or female climact radha states Symptomatic menopausal or female climact radha states Depressive disorder, not elsewhere class ified Surgical History Surgery Date(Month/Year) appendectomy 1990s
--- OUTSIDE RECORDS SUMMARY | 2024-11-21 14:58 | XMS_ITS | Data Portability ---
Author Organization [facility] Address [address] [place] [address] Care Team Providers Care Oral Therapist Name Role Phone YOEL, KARTIK Primary Care [...] and eval patholog y 2023 024 eileen [facility] ([facility]), [address], [place], [address], 07/03/2024 10:10:05 XR, knee, 4 or more view - 220 2023 024 emmett [facility], [address], [address], [place], [address], 03/28/2024 08:06:51 Medication Orders None recorded . [...] a4ajBk vP9nXo QUaueC m3YtLR FvZlgJ JJ8mAn HZtai3 4l6138 AC0Kob XiAVar eUC8mr 84%3D INTERFACE [facility] [address], [place], [address], 03/07/2024 15:39:59 03/07/20 24 03/07/2024 XR, knee, 4 or more view http:/ [email or web address] ?Encry pted=s hAaTro YD8dLq bEUv6g %2BXZw aYqtaq 0bqfl% 2Fg9IQ a4ajBk vP9nXo QUaueC m3YtLR FvZlgJ JJ8mAn HZtai3 1a8920 AC0Kob XiAVar eUC8mr 84%3D INTERFACE [facility] [address], [place], [address], 03/07/2024 15:40:01 06/23/20 24 06/21/2024 MRI, knee, w/o contr ast [facility] Access ion Number : [id number] Name: Estephania Carrasco Record Number : [id number] Date of : 1969 Date of Exam: 2023 Referr ing Physic pearl: Randi Dhillon [address] [facility], [place] [email or web address] [id number] Exam: MR Knee (C-) CPT 47332 - Left Room Descri ption: [facility] Pion 3T MR Knee (C-) CPT 86746 CLINIC AL INDICA TION: Reason For Exam: [...] Electr onical ly Signed By: Miguel [email or web address] [facility] ([facility]) [address], [place], [address], 06/23/2024 13:37:14 Result Notes None recorded. Problems Name Problem SNOMED Code Status Onset Date Resolution Date Notes Provider Name and Address Organization Details Recorded Time Pain of left knee joint 7372135878574 07 Active 2023 Randi Thomas i, PA-C [address], [place], [address], [facility] 12:48:03 Osteoarthri tis of left knee joint 4330579772621 09 Active 2023 Randi Pinto PA-C [address], [place], [address], [facility] 5 12:18:08 Bilateral osteoarthri tis of knees 4288257235629 07 Active 2023 Randi Thomas i, PA-C [address], [place], [address], [facility] 4 16:45:24 Pain of bilateral knee joints 8966220833351 04 Active 2023 Randi Thomas i, PA-C [address], [place], [address], [facility] 4 08:40:16 Problem Notes None recorded. Procedures Surgical History Date Name Laterality Status Provider Name and Address Organization Details Recorded Time 5 Zilretta Knee Injection, L/R completed Randi Pinto PA-C [address], [place], [address], [facility] 10/13/2024 12:16:57 4 Sports Knee 4&1 completed Randi Dumont PA-C [address], [place], [address], [facility] 07/11/2024 14:58:16 4 Sports Knee 4&1 completed Randi Dumont PA-C [address], [place], [address], [facility] 03/07/2024 12:50:13 Imaging Results Imaging Date Name Status LastModified by Organiz ation Details LastModified Time 03/07/2024 XR, knee, 4 or more view completed INTERFACE [facility] [address], [place], [address], 03/07/2024 15:39:59 03/07/2024 XR, knee, 4 or more view completed INTERFACE [facility] [address], [place], [address], 03/07/2024 15:40:01 06/21/2024 MRI, knee, w/o contrast completed [email or web address] [facility] ([facility]) [address], [place], [address], 06/23/2024 13:37:14 Procedure Notes None recorded. Medical Equipment None Reported. Allergies Allergen ID Allergen Name Allergen Category Reaction Reaction Severity Criticality Documentation Date Start Date Code Code System Note Provider Name and Address Organization Details Recorded Time 010255 cephalexi n medicatio n hives Not available Not available 03/07/20241 RxNorm Randi Thomas i, PA-C [address], [place], [address] , [facility] 12:48:51 Medications Name Sig Start Date Stop [...] Updated DateTime 03/07/2024 154.94 cm 26.1 kg/m2 21890.75 g LEYLA Kelly [facility] 03/07/2024 15:28:22 Date Recorded Body height Body mass index (BMI) Body weight Provider Name and Address Organization Details Last Updated DateTime 06/13/2024 154.94 cm 24.2 kg/m2 99652.82 g DELANO L'GISELEEUX [facility] 06/13/2024 14:54:42 Date Recorded Body height Body mass index (BMI) Body weight Provider Name and Address Organization Details Last Updated DateTime 07/11/2024 154.94 cm 24.2 kg/m2 29804.82 g Yvonne Eastman [facility] 07/11/2024 14:26:51 Date Recorded Body height Body mass index (BMI) Body weight Provider Name and Address Organization Details Last Updated DateTime 09/12/2024 154.94 cm 24.2 kg/m2 34107.82 g trent marquis [facility] 09/12/2024 14:37:47 Date Recorded Body height Body mass index (BMI) Body weight Provider Name and Address Organization Details Last Updated DateTime 10/13/2024 154.94 cm 24.6 kg/m2 62185.01 g Yvonne Groverton [facility] 10/13/2024 13:55:25 Social History Question Answer Notes LastModified by Organizat ion Details LastModified Time Tobacco Smoking Status Former [facility] 03/07/2024 15:28:51 What Is Your Level Of [...] Response Allergies/Hayfever N Coronary Artery Disease N Anxiety/Depression N Breathing or lung disorders N Emphysema N Nerve Disorders N Thyroid Problems N COPD N Pacemaker N Anemia N Kidney/Bladder Problems N Vascular Disease N Heart Trouble N Heart Attack (ME) N Gastrointestinal Disease N Cholesterol N Diabetes N Autoimmune disease N Bleeding Disorder N Inflammatory Joint disease N Orthotics N Arthritis Y Seizures/Epilepsy N Blood Clot N AIDS/HIV N Congestive Heart Failure (CHF) N Acid Reflux (GERD) N Cancer N Stroke N Asthma N Circulation Problems N Peripheral Vascular Disease N Sleep Apnea N Hepatitis N Heart Disease N Rheumatoid Arthritis N Arrhythmia N Pulmonary Embolism N Headaches N Fibromyalgia N Hypertension N Osteoporosis N Gynecological HistoryNo gynecological history recorded. Obstetrics History GPAL:G 0 P 0 0 0 0 Past Encounters Encounter ID Performer Location Encounter Start Date Encounter Closed Date Diagnosis/Indication Diagnosis SNOMED-CT Code Diagnosis ICD10 Code Diagnosis Note [id number] Randi Dumont PA-C [facility] [address] [place] [address] 03/07/2024 15:23:05 03/28/2024 08:06:51 Pain of bilateral knee joints [id number] 87661 M25.561 M25.562 Bilateral osteoarthritis of knees 4474630771 81576 M17.0 [id number] Randi Dumont PA-C [facility] [address] [place] [address] 06/13/2024 14:41:34 07/03/2024 10:10:05 Bilateral osteoarthritis of knees 4396237396 40627 M17.0 [id number] Randi Dumont PA-C [facility] [address] [place] [address] 07/11/2024 14:15:23 07/31/2024 14:17:43 Bilateral osteoarthritis of knees 9720955673 18752 M17.0 [id number] Randi Pinto PA-C [facility] [address] [place] [address] 09/12/2024 14:28:03 10/01/2024 07:36:10 Bilateral osteoarthritis of knees 5820022929 02022 M17.0 [id number] [facility] [address] [place] [address] 10/13/2024 13:51:27 10/27/2024 13:46:36 Osteoarthritis of left knee joint 3245365947 54562 M17.12 Health Concerns Section Related Observation LastModified by Organization Detai ls LastModified Time None Recorded Concern Status LastModified by Organization Details LastModified Time None Recorded Advance Directives Directive None Recorded Payers Encounter Date Sequence Insurance Name Policy Number Policy Pandey Covered Member ID Pandey Member ID Guarantor Name 06/13/2024 1 [place] [facility] ([facility] [id number] Estephania Eldon [id number] Estephania Terry 07/11/2024 1 [place] [facility] ([facility] [id number] Estephania Terry [id number] Estephania Terry 10/13/2024 1 [place] [facility] [employer] [place] ([facility]) [id number] Estephania Terry [id number] Estephania Terry Notes Date Note Type Note Provider Name and Address Organization Details Recorded Time 4 text/html I am seeing the patient today under the supervision of {{Neftali welch Qamarstephania [employer]}} who was available but who did not see the patient. HPI: 53-year-old female patient presents today for bilateral knee pain, left worse than right. History of left knee menisectomy at [facility] 10+ years ago, no records available today. Localizes the pain to the lateral aspect of her left knee especially and a crepitus, popping sensation. Occasionally describes knee locking and having to unlock her knee. Pain exacerbated by squatting, pivoting, at night, getting up from a seated position. About 5 years ago received a cortisone injection at [facility] with good relief. She takes motrin daily. Past family, social history and review of systems has been reviewed, updated and is located in the patient? s chart. X-RAYS:4v X-rays of the {{Right Left* Bilateral}} knee were ordered, obtained and reviewed today at [facility] demonstrate moderate medial compartment narrowing on [...] and agrees with the plan. Speech recognition education coordinator software was used to create portions of this document. An attempt at proofreading has been made to minimize errors. Please call for corrections. Randi Dumont PA-C [address] [place] [address] [address], [place], [address], [facility] 03/07/2024 16:46:33 4 text/html [...] has a vacation scheduled in June to [place]. HPI: History of left knee menisectomy at [facility] 10+ years ago, no records available today. Localizes the pain to the lateral aspect of her left knee especially and a crepitus, popping sensation. Occasionally describes knee locking and having to unlock her knee. Pain exacerbated by squatting, pivoting, at night, getting up from a seated position. About 5 years ago received a cortisone injection at [facility] with good relief. She takes motrin daily. Past family, social history and review of systems has been reviewed, updated and is located in the patient? s chart. X-RAYS:Previous 4v X-rays of the {{Right Left* Bilateral}} knee reviewed today at [facility] demonstrate moderate medial compartment narrowing on [...] and agrees with the plan. Speech recognition education coordinator software was used to create portions of this document. An attempt at proofreading has been made to minimize errors. Please call for corrections. Randi Dumont PA-C [address] [place] [address] [address], [place], [address], [facility] 06/13/2024 15:42:24 4 text/html [...] HPI: History of left knee menisectomy at [facility] 10+ years ago, no records available today. Localizes the pain to the medial and lateral aspect of her left knee especially and a crepitus, popping sensation. Occasionally describes knee locking and having to unlock her knee. Pain exacerbated by squatting, pivoting, at night, getting up from a seated position. About 5 years ago received a cortisone injection at [facility] with good relief. She takes motrin daily. Past family, social history and review of systems has been reviewed, updated and is located in the patient? s chart.X-RAYS:Previous 4v X-rays of the {{Right Left* Bilateral}} knee reviewed today at [facility] demonstrate severe medial compartment narrowing on the left with early medial femoral condyle osteophyte formation, while on the right more mild to moderate with no osteophyte formation. Moderate patellofemoral space narrowing bilaterally with osteophyte formation. MRI Nwsyzjp18/23/24 of the left knee independently reviewed today [...] and agrees with the plan. Speech recognition education coordinator software was used to create portions of this document. An attempt at proofreading has been made to minimize errors. Please call for corrections. Randi Dumont PA-C [address] [facility], [place], [address], [facility] 07/11/2024 14:58:56 5 text/html I am seeing the patient today under the supervision of DrMercedes {{Thomas Kern* L rebekah [employer]}} who [...] HPI: History of left knee menisectomy at [facility] 10+ years ago, no records available today. Localizes the pain to the medial and lateral aspect of her left knee especially and a crepitus, popping sensation. Occasionally describes knee locking and having to unlock her knee. Pain exacerbated by squatting, pivoting, at night, getting up from a seated position. About 5 years ago received a cortisone injection at [facility] with good relief. She takes motrin daily. Past family, social history and review of systems has been reviewed, updated and is located in the patient? s chart.X-RAYS:Previous 4v X-rays of the {{Right Left* Bilateral}} knee reviewed today at [facility] demonstrate severe medial compartment narrowing on the left with early medial femoral condyle osteophyte formation, while on the right more mild to moderate with no osteophyte formation. Moderate patellofemoral space narrowing bilaterally with osteophyte formation. MRI Rucbjrz38/23/24 of the left knee reviewed today demonstrates: [...] and agrees with the plan. Speech recognition education coordinator software was used to create portions of this document. An attempt at proofreading has been made to minimize errors. Please call for corrections. Randi Pinto PA-C [address], [place], [address], [facility] 09/12/2024 14:57:29 5 text/html [...] up {{next week as needed*}}. Speech recognition education coordinator software was used to create portions of this document. An attempt at proofreading has been made to minimize errors. Please call for corrections. Randi Pinto PA-C [address], [place], [address], [facility] 10/13/2024 14:23:47 OBGyn Episode No OBEpisode recorded.
== END 2024-11-21 15:05 | disposition home or self-care (01) ==
LOC: HO.HMCH 14:18
DX: M54.50 Low back pain, unspecified (principal); G89.29 Other chronic pain

== ENCOUNTER 2024-11-21 14:17 | Outpatient (REF) | payer BC, SELFPAY | END 2024-11-21 14:18 | disposition home or self-care (01) | LOC: HO.LAB 14:17 | DX: Z00.00 Encounter for general adult medical examination without abnormal findings (principal) | CPT/HCPCS: 36415; 86735; 86762; 86765 ==

== ENCOUNTER 2024-12-05 08:55 | Outpatient (AMB) | payer BC, SELFPAY ==
--- NOTE | 2024-12-05 09:06 | AM.OFFVISNUR ---
Intake Visit Reasons: mmr vaccine Allergies cephalexin [Keflex] Allergy (Unknown, Verified 11/21/24 14:24) hives ENVIRONMENTAL Adverse Reaction (Mild, Uncoded 11/21/24 14:24) UNKNOWN Immunizations M-M-R II (PF) 1,000-12,500 TCID50/0.5 mL subcutaneous solution Performing Provider: Shelby Davis PA-C [facility] Administered by: Sasha Mota LPN on 12/05/24 09:06 Dose Route Admin Location Dispensed Lot Number Expiration Date NDC Lehr Cutter 0.5 mL subcut Left Arm 0.5 mL [id number] 11/07/25 4690-2277-82 [employer] & D VIS Given Date VIS Provided VIS Publication Date 12/05/24 Single Vaccine 21 Eligibility Eligibility Date Funding Source Not [facility] Eligible 12/05/24 Private Assessment & Plan Assessment & Plan Orders: Orders MMR Immunization Today Z23 - Encounter for immunization Medications: New M-M-R II (PF) (measles,mumps,rubella vacc(PF)) 0.5 mL subcut ONCE 1 ea 0RF NS Z23 - Encounter for immunization Coding
--- OUTSIDE RECORDS SUMMARY | 2024-12-05 09:09 | XMS_ITS | Patient Health Record ---
Author Organization [facility] Address [address] [place] [address] Care Team Providers Care Senior Net Developer Name Role Phone ANGELIA CAMARILLO Primary Care Provider Meaghan Barragan Unavailable [phone] Reason For Referral No Information Medications Medication [...] W/U Status Risk Notes Problem Depressive disorder (05490625) Depressive disorder, not elsewhere classified (311) Active confirmed Problem Menopausal symptom (33129812) Symptomatic menopausal or female climacteric states (627.2) Active confirmed Plan Of Treatment Pending Test Test Name Order Date TSH 08/27/2014 Insurance Providers Payer Name Payer Address Payer Phone Subscriber Number Group Number Insured Name Patient Relationship to Insured Coverage Start Date Coverage End Date [facility] [address] [place] [address] [id number] Self - patient is the insured Medical (General) History Medical History History ICD Code Symptomatic menopausal or female climact radha states Symptomatic menopausal or female climact radha states Depressive disorder, not elsewhere class ified Surgical History Surgery Date(Month/Year) appendectomy 1990s
== END 2024-12-05 09:07 | disposition home or self-care (01) ==
LOC: HO.HMCH 08:56
DX: Z23 Encounter for immunization (principal)

== ENCOUNTER → 2024-12-05 08:55 | Outpatient (BNVA) | payer BC, SELFPAY | DX: Z23 Encounter for immunization (principal) | CPT/HCPCS: 90471; 90707 ==

== ENCOUNTER 2025-01-16 15:09 | Outpatient (AMB) | payer BC, SELFPAY ==
--- OUTSIDE RECORDS SUMMARY | 2025-01-16 15:11 | XMS_ITS | Data Portability ---
Author Organization [facility], [facility] Address [address] [place] [address] Care Team Providers Care Spa Experience Coordinator Name Role Phone YOEL, KARTIK Primary Care [...] [facility] ([facility]), [address], [place], [address], 07/03/2024 10:10:05 XR, knee, 4 or more view - 220 2023 024 emmett [facility], [address], [facility] [address], [place], [address], 03/28/2024 08:06:51 Medication Orders None recorded . [...] a4ajBk vP9nXo QUaueC m3YtLR FvZlgJ JJ8mAn HZtai3 5w3425 AC0Kob XiAVar eUC8mr 84%3D INTERFACE [facility] [address], [place], [address], 03/07/2024 15:39:59 03/07/20 24 03/07/2024 XR, knee, 4 or more view http:/ [email or web address] ?Encry pted=s hAaTro YD8dLq bEUv6g %2BXZw aYqtaq 0bqfl% 2Fg9IQ a4ajBk vP9nXo QUaueC m3YtLR FvZlgJ JJ8mAn HZtai3 5p7108 AC0Kob XiAVar eUC8mr 84%3D INTERFACE [facility] [address], [place], [address], 03/07/2024 15:40:01 06/23/20 24 06/21/2024 MRI, knee, w/o contr ast [facility] Access ion Number : [id number] Name: Estephania Carrasco Record Number : [id number] Date of : 1969 Date of Exam: 2023 Referr ing Physic pearl: Randi Dhillon [address] [facility], [facility] [address] Exam: MR Knee (C-) CPT 17875 - Left Room Descri ption: [facility] Pion 3T MR Knee (C-) CPT 09526 CLINIC AL INDICA TION: Reason For Exam: [...] a Electr onical ly Signed By: Miguel Dickey rd, MD [email or web address] [facility] ([facility]) [address] [facility], [place], [address], 06/23/2024 13:37:14 Result Notes Documentation Provider Name and Address Organization Details Recorded Time Xr, Knee, 4 Or More View : [email or web address] Encrypted=ruRaYncCQ7iTjkV Uv6g%4HUKxxEopol5vxzt%2Fg 0MKc4rmEagR7hQvAAoiqOx2Rh WMZaBtfARG4cKbHPagt28d883 2WM0QpyGzBRzwlRG2gb22%3D Not Available [facility] 03/07/2024 15:40:00 Xr, Knee, 4 Or More View : [email or web address] Encrypted=cfSmErpNO3fGfsG Uv6g%0BCCjgJoraa0atle%2Fg 4TFe8sjPuyM1vDaAHgrdOi5Kb TKVsCuyBPW1vGaBXwng72q118 1RH0CniNjTNhyeZO0sn91%3D Not Available [facility] 03/07/2024 15:40:01 Mri, Knee, W/o Contrast : [facility] Accession Number: [id number] Patient Name: Estephania Colón Date of : 1970 Date of Exam: 06-21-2024 Referring Physician: Randi Dumont [address] [place], [place] [address] Exam: MR Knee (C-) CPT 97111 - Left Room Description: [facility] 3T MR Knee (C-) CPT 26063 CLINICAL INDICATION: Reason For Exam: M17.0 - Bilateral primary osteoarthritis of knee, , MRI left knee no contrast r/o tear and eval pathology Reason For Exam: M17.0 - Bilateral primary osteoarthritis of knee, , MRI left knee no contrast r/o tear and eval pathology TECHNIQUE: MRI of the left knee was performed without intravenous contrast. COMPARISON: None FINDINGS: Joint effusion: No joint effusion is present. Hoffa's fat pad is unremarkable. Small Root's cyst. Menisci: Medial meniscus: Complex degenerative tear of the meniscal body Lateral meniscus: intact Tendons and ligaments: ACL and PCL are intact. MCL, LCL complex and popliteus insertion are intact. Extensor mechanism is intact. Bone and articular cartilage: Full-thickness thinning of the medial tibiofemoral articular cartilage with accompanying subchondral sclerosis and marrow edema. Mild chondral fissuring along the median patellar ridge. Medial and lateral tibiofemoral marginal osteophytes are present. Alignment is within normal limits. No evidence of acute fracture or bone marrow contusion. IMPRESSION: Complex degenerative tear of the medial meniscal body and full-thickness chondral thinning within the medial tibiofemoral compartment Mild chondromalacia patella Electronically Signed By: Miguel Dumont PA-C [address], [place], [address], [facility] 06/23/2024 13:37:14 Problems Name Problem SNOMED Code Status Onset Date Resolution Date Notes Provider Name and Address Organization Details Recorded Time Pain of left knee joint 0137906163445 07 Active 2023 Randi Thomas i, PA-C [address], [place], [address], [facility] 4 12:48:03 Osteoarthri tis of left knee joint 7839487553648 09 Active 2023 Randi Pinto PA-C [address], [place], [address], [facility] 5 12:18:08 Bilateral osteoarthri tis of knees 3538064790773 07 Active [address], [place], [address], [facility] 4 16:45:24 Pain of bilateral knee joints 4096251835150 04 Active 2023 Randi Thomas i, PA-C [address], [place], [address], [facility] 4 08:40:16 Problem Notes None recorded. Procedures Surgical History Date Name Laterality Status Provider Name and Address Organization Details Recorded Time 5 Zilretta Knee Injection, L/R completed Randi Pinto PA-C [address], [place], [address], [facility] 10/13/2024 12:16:57 4 Sports Knee 4&1 completed Randi Dumont PA-C [address], [place], [address], [facility] 07/11/2024 14:58:16 4 Sports Knee 4&1 completed Randi Dumont PA-C [address], [place], [address], [facility] 03/07/2024 12:50:13 Imaging Results None recorded. Procedure Notes None recorded. Medical Equipment None Reported. Allergies Allergen ID Allergen Name Allergen Category Reaction Reaction Severity Criticality Documentation Date Start Date Code Code System Note Provider Name and Address Organization Details Recorded Time 292135 cephalexi n medicatio n hives Not available Not available 03/07/20241 RxNorm Randi Thomas i, PA-C [address], [place], [address], [facility] 12:48:51 Medications Name Sig Start Date Stop Date Status Note LastModified by Organization Details LastModified Time cyclobenzap rine 10 mg tablet TAKE 1 TABLET BY MOUTH AT BEDTIME NEEDED FOR MUSCLE SPASM active Not Available Not Available No t Available metronidazo le 0.75 % (37.5 mg/5 gram) [...] Updated DateTime 09/12/2024 154.94 cm 24.2 kg/m2 98488.82 g trent marquis [facility] 09/12/2024 14:37:47 Date Recorded Body height Body mass index (BMI) Body weight Provider Name and Address Organization Details Last Updated DateTime 10/13/2024 154.94 cm 24.6 kg/m2 67202.01 g Yvonne Eastman [facility] 10/13/2024 13:55:25 Date Recorded Body height Body mass index (BMI) Body weight Provider Name and Address Organization Details Last Updated DateTime 03/07/2024 154.94 cm 26.1 kg/m2 90255.75 g LEYLA JOHNATHAN Kelly [facility] 03/07/2024 15:28:22 Date Recorded Body height Body mass index (BMI) Body weight Provider Name and Address Organization Details Last Updated DateTime 06/13/2024 154.94 cm 24.2 kg/m2 56296.82 g DELANO Velez'HEUREUX [facility] 06/13/2024 14:54:42 Date Recorded Body height Body mass index (BMI) Body weight Provider Name and Address Organization Details Last Updated DateTime 07/11/2024 154.94 cm 24.2 kg/m2 44562.82 g Yvonne Groverton [facility] 07/11/2024 14:26:51 Social History Question Answer Notes LastModified by Organizat ion Details LastModified Time Tobacco Smoking Status Former Smoker LEYLA sifuentes [facility] 03/07/2024 15:28:51 Which Illicit Or Recreational Drugs Have You Used? Marijuana Information not available 03/07/2024 When Did You Quit Smoking? 16+yearssince lastcialvina mishramejia Information not available 03/07/2024 Have You Ever Been Counseled For Unhealthy Alcohol Use? No Information not available 03/07/2024 Sex: Unknown Functional Status Question Answer Note LastModified by Organizat ion Details LastModified Time How many times per week do you consume alcohol? 1-2 times per week Information not available 03/07/2024 Do you use any illicit or recreational drugs? Yes Information not available 03/07/2024 Do you or have you ever used any other forms of tobacco or nicotine? No Information not available 03/07/2024 What is your level of alcohol consumption? Occasional amanda Information not available 03/07/2024 Mental Status None recorded. Family History Nothing Reported. Medical History Condition Response Allergies/Hayfever N Coronary Artery Disease N Anxiety/Depression N Breathing or lung disorders N Emphysema N Nerve Disorders N Thyroid Problems N COPD N Pacemaker N Anemia N Kidney/Bladder Problems N Vascular Disease N Heart Trouble N Gastrointestinal Disease N Heart Attack ([place]) N Cholesterol N Diabetes N Autoimmune disease [...] SNOMED-CT Code Diagnosis ICD10 Code Diagnosis Note [id number] CHAYO Pang [address] [place] [address] 03/07/2024 15:23:05 03/28/2024 08:06:51 Pain of bilateral knee joints 3925581054 95363 M25.561 M25.562 Bilateral osteoarthritis of knees 0699003909 64809 M17.0 [id number] CHAYO Pang [address] [place] [address] 06/13/2024 14:41:34 07/03/2024 10:10:05 Bilateral osteoarthritis of knees 4407516142 59252 M17.0 [id number] CHAYO Pang [address] [place] [address] 07/11/2024 14:15:23 07/31/2024 14:17:43 Bilateral osteoarthritis of knees 0221013524 79026 M17.0 [id number] Randi Pinto PA-C [place] [address] [place] [address] 09/12/2024 14:28:03 10/01/2024 07:36:10 Bilateral osteoarthritis of knees 6478100289 31419 M17.0 [id number] CHAYO Sevilla [address] [place] [address] 10/13/2024 13:51:27 10/27/2024 13:46:36 Osteoarthritis of left knee joint 5317540179 50072 M17.12 Health Concerns Section Related Observation LastModified by Organization Detai ls LastModified Time None Recorded Concern Status LastModified by Organization Details LastModified Time None Recorded Advance Directives Directive None Recorded Payers Insurance Date Sequence Insurance Name Policy Number Policy Pandey Covered Member ID Pandey Member ID Guarantor Name 01/13/2025 1 [facility] ([facility]) [id number] Estephania Collierregard [id number] Estephania Collierregard Notes Date Note Type Note Provider Name and Address Organization Details Recorded Time 4 text/html I am seeing the patient today under the supervision of Dr. Guzman who was available but who did not see the patient. HPI: 53-year-old female patient presents today for bilateral knee pain, left worse than right. History of left knee menisectomy at [facility] 10+ years ago, no records available today. Localizes the pain to the lateral aspect of her left knee especially and a crepitus, popping sensation. Occasionally describes knee locking and having to unlock her knee. Pain exacerbated by squatting, pivoting, at night, getting up from a seated position. About 5 years ago received a cortisone injection at [facility] with good relief. She takes motrin daily. Past family, social history and review of systems has been reviewed, updated and is located in the patient s chart. X-RAYS:4v X-rays of the Left knee were ordered, obtained and reviewed today at [facility] demonstrate moderate medial compartment narrowing on the left with early medial femoral condyle osteophyte formation, while on the right more mild to moderate with no osteophyte formation. Moderate patellofemoral space narrowing bilaterally with osteophyte formation. IMPRESSION: Bilateral knee osteoarthritis, left more symptomatic than rightPLAN: [...] and agrees with the plan. Speech recognition repair department manager software was used to create portions of this document. An attempt at proofreading has been made to minimize errors. Please call for corrections. Randi Dumont PA-C [address] [place] [address] [address], [place], [address], [facility] 03/07/2024 16:46:33 4 text/html I am seeing the patient today under the supervision of Dr. Guzman who was available but who did not [...] has a vacation scheduled in June to [place]. HPI: History of left knee menisectomy at [facility] 10+ years ago, no records available today. Localizes the pain to the lateral aspect of her left knee especially and a crepitus, popping sensation. Occasionally describes knee locking and having to unlock her knee. Pain exacerbated by squatting, pivoting, at night, getting up from a seated position. About 5 years ago received a cortisone injection at [facility] with good relief. She takes motrin daily. Past family, social history and review of systems has been reviewed, updated and is located in the patient s chart. X-RAYS:Previous 4v X-rays of the Left knee reviewed today at [facility] demonstrate moderate medial compartment narrowing on the left with early medial femoral condyle osteophyte formation, while on the right more mild to moderate with no osteophyte formation. Moderate patellofemoral space narrowing bilaterally with osteophyte formation. IMPRESSION: Bilateral knee osteoarthritis, left more symptomatic than right [...] and agrees with the plan. Speech recognition repair department manager software was used to create portions of this document. An attempt at proofreading has been made to minimize errors. Please call for corrections. Randi Dumont PA-C [address], [address], [facility] 06/13/2024 15:42:24 4 text/html I am seeing the patient today under the supervision of Dr. Kern who was available but who did not see the patient. CLINICAL UPDATE: 54-year-old female patient presents today for bilateral knee recheck, left worse than right. Here today to review left knee MRI. reports sharp stabbing pain medial aspect, intermittent. Last bilateral knee cortisone injections 03/07/24 provided good relief, her right knee is stil feeling good. HPI: History of left knee menisectomy at [facility] 10+ years ago, no records available today. Localizes the pain to the medial and lateral aspect of her left knee especially and a crepitus, popping sensation. Occasionally describes knee locking and having to unlock her knee. Pain exacerbated by squatting, pivoting, at night, getting up from a seated position. About 5 years ago received a cortisone injection at [facility] with good relief. She takes motrin daily. Past family, social history and review of systems has been reviewed, updated and is located in the patient s chart.X-RAYS:Previous 4v X-rays of the Left knee reviewed today at [facility] demonstrate severe medial compartment narrowing on the left with early medial femoral condyle osteophyte formation, while on the right more mild to moderate with no osteophyte formation. Moderate patellofemoral space narrowing bilaterally with osteophyte formation. MRI Mhrnysj55/23/24 of the left knee independently reviewed today [...] and agrees with the plan. Speech recognition repair department manager software was used to create portions of this document. An attempt at proofreading has been made to minimize errors. Please call for corrections. Randi Dumont PA-C [address] [place] [address] [address] [facility], [place], [address], [facility] [facility] 07/11/2024 14:58:56 5 text/html I am seeing the patient today under the supervision of Dr. Kern who was available but who did not [...] HPI: History of left knee menisectomy at [facility] 10+ years ago, no records available today. Localizes the pain to the medial and lateral aspect of her left knee especially and a crepitus, popping sensation. Occasionally describes knee locking and having to unlock her knee. Pain exacerbated by squatting, pivoting, at night, getting up from a seated position. About 5 years ago received a cortisone injection at [facility] with good relief. She takes motrin daily. Past family, social history and review of systems has been reviewed, updated and is located in the patient s chart.X-RAYS:Previous 4v X-rays of the Left knee reviewed today at [facility] demonstrate severe medial compartment narrowing on the left with early medial femoral condyle osteophyte formation, while on the right more mild to moderate with no osteophyte formation. Moderate patellofemoral space narrowing bilaterally with osteophyte formation. MRI Zqvppvm11/23/24 of the left knee reviewed today demonstrates: [...] injections with mild relief. Insurance denied viscosupplementation. Zilretta auth is pending, I am happy to squeeze [...] and agrees with the plan. Speech recognition repair department manager software was used to create portions of this document. An attempt at proofreading has been made to minimize errors. Please call for corrections. Randi Pinto PA-C [address] [facility] [address] [facility], [place], [address], [facility] [place] [facility] 09/12/2024 14:57:29 5 text/html I am seeing the patient today under the supervision of Dr. Toro who was available but who did not see the patient. Subjective:Patient is here today for Zilretta injection of left knee. Last left knee cortisone injection 07/11/24 [...] and sclerosis. Mild chondromalacia patella. Objective:Evaluation of left knee reveal no evidence of infection, no significant joint effusion, no warmth, or erythema. The injection sites are benign. Calves are supple and nontender. 5/5 strength. Some discomfort with range of motion Assessment:left knee osteoarthritis Plan:After meticulous sterile preparation, left knee injected with Zilretta. Post-injection precautions were reviewed. I recommend ice, restriction of activities and follow up as needed. Speech recognition repair department manager software was used to create portions of this document. An attempt at proofreading has been made to minimize errors. Please call for corrections. Randi Pinto PA-C [address], [place], [address], [facility] [place] [facility] 10/13/2024 14:23:47 OBGyn Episode No OBEpisode recorded.
--- NOTE | 2025-01-16 15:39 | AM.OFFVISNUR ---
Intake Visit Reasons: MMR Allergies cephalexin (Keflex) Allergy (Unknown, Verified 11/21/24 14:24) hives ENVIRONMENTAL Adverse Reaction (Mild, Uncoded 11/21/24 14:24) UNKNOWN Immunizations M-M-R II (PF) 1,000-12,500 TCID50/0.5 mL subcutaneous solution Performing Provider: Tae Mills MD [facility] Administered by: Miri Hess RN on 01/16/25 15:40 Dose Route Admin Location Dispensed Lot Number Expiration Date NDC Converter Supervisor 0.5 mL subcut Left Arm 0.5 mL [id number] 11/07/25 2824-8027-47 [employer] Total Dispensed Waste 0.5 mL 0 % VIS Given Date VIS Provided VIS Publication Date 01/16/25 Single Vaccine 21 Eligibility Eligibility Date Funding Source Not [facility] Eligible 01/16/25 Private Assessment & Plan Assessment & Plan Orders: Orders MMR IgG Measles Mumps Rubella Today Z23 - Encounter for immunization MMR Immunization Today Z23 - Encounter for immunization Coding
== END 2025-01-16 15:42 | disposition home or self-care (01) ==
LOC: HO.HMCH 15:09
PROVIDERS: Visit Provider Internal Medicine
DX: Z23 Encounter for immunization (principal)

== ENCOUNTER → 2025-01-16 15:09 | Outpatient (BNVA) | payer BC, SELFPAY | PROVIDERS: Visit Provider Internal Medicine | DX: Z23 Encounter for immunization (principal) | CPT/HCPCS: 90471; 90707 ==

== ENCOUNTER 2025-04-03 14:26 | Outpatient (AMB) | payer BC, SELFPAY ==
--- NOTE | 2025-04-03 14:26 | A.OFFPC_ITS ---
Intake Visit Reasons: discuss new referral Cushion Maker Hand Required: No Acetone Recovery Worker: Not Required per policy Accompanied by: Self / Same As Patient Allergies cephalexin (Keflex) Allergy (Unknown, Verified 04/03/25 14:27) hives ENVIRONMENTAL Adverse Reaction (Mild, Uncoded 04/03/25 14:27) UNKNOWN Medication List - Last Reconciled 04/03/25 by Shelby Davis PA-C No Known Home Meds Tobacco use date assessed: 11/21/24 Dental Screening Dental Screen Date: 11/07/24 HPI discuss new referral HPI Details 54-year-old female with past medical his tory of sacroiliitis last seen 10/2024 presenting via telehealth for acute problem. Patient tells us today she has been continuing to deal with bilateral knee pain which has not been improving. She is seeing orthopedics at this time through [facility] but would like to be seen in [place]. She has a friend that was treated at that practice and had some good benefit there. [facility] Medical History Cervical spine pain Rash and nonspecific skin eruption Rash Asthma Surgical History History of left knee surgery Hx of appendectomy Family History (Updated 04/03/25 @ 14:28 by AMIRA Sanchez) Mother Cancer Father Heart problem Brother Colon cancer Sister Uterine cancer Social History Housing: House Alcohol intake: current Alcohol intake frequency: holidays/special occasions only Patient Tobacco Use Status: Former Tobacco user Tobacco use type: Cigarette Cigarette Packs Per Day: 1 Years Smoked: 21 years stopped at 33 y/o e-Cigarette/Vaping Use: Never Used Second Hand Smoke Exposure: Yes service: No Current occupational status: employed Current occupation: right handed - [employer] at [employer] Cognitive needs: No Hearing needs: No Vision needs: Yes (Contact lenses) Female Reproductive History Menstrual Age of Menarche: 9 Questionnaire Thrive Questionnaire Date Thrive assessed: 11/21/24 I am a: Patient What is your living situation today?: I have a steady place to live Within the past 12 months, did the food you bought not last and you didn't have the money to get more?: I choose not to answer this question Within the past 12 months, did you worry whether your food would run out before you got money to buy more?: Never true Do you have trouble paying for medicines?: No Do you have trouble getting transportation to medical appointments?: No Do you have trouble paying your heating and electricity bill?: No Do you have trouble taking care of your child, family member or friend?: No Do you have trouble with day-to-day activities such as bathing, preparing meals, shopping, managing finances, etc.?: No Are you currently unemployed and looking for a job?: No Are you interested in more education?: No Please select the resources that you would like help with: None Currently or been in a relationship where the following occur: No concerns reported THRIVE Score: 0 SILVANO-7 AMB Questionnaire SILVANO-7 Date SILVANO - 7 assessed: 11/07/24 Source: Developed by Drs. Jamar Zamora, Milana Macario, Gagan Bro and colleagues, with an educational sybil from [employer]. Review of Systems Const Denies body aches, Denies chills and Denies fever(s) Card Denies chest pain, Denies syncope and Denies dyspnea Resp Denies dyspnea Musc Details: tracy knee pain Reports as per HPI Neuro Denies syncope Physical exam (Primary Care) Vital Signs: Vital signs and physical exam not performed due to nature of telehealth visit. Tobacco/Smoking Status: Tobacco use Status Tobacco use date assessed 11/21/24 04/03/25 14:29 Patient Tobacco Use Status Former Tobacco user 04/03/25 14:29 Tobacco use type Cigarette 04/03/25 14:29 e-Cigarette/Vaping Use Never Used 04/03/25 14:29 Thrive Assessment: Date of Thrive Assessment Date Thrive assessed 11/21/24 04/03/25 14:29 Currently or been in a relationship where the following occur: No concerns reported Telehealth Telehealth Telehealth Platform: [facility] Location of provider rendering services: practice address Location of patient: address on file Patient Identification confirmed using: Name, : Yes Telehealth method: video Patient verbally consented to treatment: Yes Patient verbally consented to billing insurance company: Yes Patient informed of any privacy concerns related to visit: Yes Coding Level of Care Code Tele Est Pt Level 3 (01326) Diagnoses Bilateral primary osteoarthritis of knee M17.0 Assessment & Plan Assessment & Plan (1) Bilateral primary osteoarthritis of knee: Code(s): M17.0 - Bilateral primary osteoarthritis of knee Category: Medical Plan: Referral was placed to [place] [facility] at patient request and she will continue to follow up with orthopedics at this time. She may also use Tylenol and ibuprofen as well as heating pads as needed. She will follow up with us as needed for this concern. Plan This note was constructed using voice recognition software. While every effort has been made to ensure accuracy and machine operator farmworker, still areas may have been included sometimes these areas may affect the content or meeting of the given symptoms. Total time spent caring for the patient today was 10 minutes. This includes time spent before the visit reviewing the chart, time spent during the visit, and time spent after the visit and documentation. Orders: Referrals Orthopedics Referral M17.0 - Bilateral primary osteoarthritis of knee
--- OUTSIDE RECORDS SUMMARY | 2025-04-03 14:48 | XMS_ITS | Patient Health Record ---
Author Organization [facility] Address [address] [place] [address] Care Team Providers Care Children'S Program Coordinator Name Role Phone ANGELIA CAMARILLO Primary Care Provider Meaghan Barragan Unavailable [phone] Reason For Referral No Information Medications Medication SIG (Take, Route, Frequency, Duration) Notes Start Date End Date Status Modicon (28) 0.5-35 MG-MCG 1 tablet Oral ly Once a day; Duration: 30 day(s) 11/19/2014 Active Necon // 0.5/0.75/1-35 MG-MCG 1 tablet Orally Once a day; Duration: 28 days 08/27/2014 Active Problems Problem Type SNOMED Code ICD Code Onset Dates Problem Status W/U Status Risk Notes Problem Depressive disorder (75479090) Depressive disorder, not elsewhere classified (311) Active confirmed Problem Menopausal symptom (86136193) Symptomatic menopausal or female climacteric states (627.2) Active confirmed Plan Of Treatment Pending Test Test Name Order Date TSH 08/27/2014 Insurance Providers Payer Name Payer Address Payer Phone Subscriber Number Group Number Insured Name Patient Relationship to Insured Coverage Start Date Coverage End Date [facility] [address] [facility] [place] [id number] Self - patient is the insured Medical (General) History Medical History History ICD Code Symptomatic menopausal or female climact radha states Symptomatic menopausal or female climact radha states Depressive disorder, not elsewhere class ified Surgical History Surgery Date(Month/Year) appendectomy 1990s
== END 2025-04-03 15:20 | disposition home or self-care (01) ==
LOC: HO.HMCH 14:26
PROVIDERS: PCP Internal Medicine
DX: M17.0 Bilateral primary osteoarthritis of knee (principal)

== ENCOUNTER 2025-04-17 14:39 | Outpatient (REF) | payer BC, SELFPAY ==
--- NOTE | ~2025-04-17 | MM_ITS ---
EXAMINATION: MM SCREENING DIGITAL BREAST TOMOSYNTHESIS, BILATERAL CLINICAL INFORMATION: Screening. Asymptomatic. COMPARISON: Mammography: Comparison is made with available priors TECHNIQUE: Digital breast mammography with tomosynthesis is performed in both the craniocaudal and mediolateral oblique views along with computer-aided detection (CAD). FINDINGS: There are scattered areas of fibroglandular density (ACR BI-RADS breast composition Category b). There are no significant masses, abnormal calcifications, or other abnormalities. MM/MM tomosynthesis screening BI IMPRESSION: No mammographic evidence of malignancy. ASSESSMENT: BI-RADS BI-RADS 1 - Negative RECOMMENDATION: Routine annual mammography screening. 1 year F/U This examination should not preclude the clinical evaluation of a suspicious palpable abnormality. This patient's information was entered into a reminder system with a target due date for their next mammogram. Electronically signed by: Shanel Lacey DO 04/21/2025 01:14 PM EDT
--- OUTSIDE RECORDS SUMMARY | 2025-04-17 14:44 | XMS_ITS | Clinical Summary ---
Author Organization [facility] Address [address] [place] [address] [place], [place] [id number] Phone Care Team Providers Care Desizing Machine Operator Head End Name Role Phone Tae Mills MD Primary Care Provid er Encounters Date Type Department Care Team Description 04/13/2025 Telephone [facility] [address] [place] [address] [phone] Yesenia Casey MD Waiting on records. (Waiting on records. ); [facility] Records for review from Last 3 Months Social History Tobacco Use Types Packs/Day Years Used Date Smoking Tobacco: Never Assessed Comments Unknown Sex and Gender Information Value Date Recorded Sex Assigned at Not on file Legal Sex Female 9:48 AM EDT Gender Identity Not on file Sexual Orientation Not on file Plan of Treatment Not on file Medical Devices Not on file Insurance [facility] [address] [place] [address] [place] [address] [place] [address] [place] [address] [place] [address] Care Teams Desizing Machine Operator Head End Relationship Specialty Start Date End Date Tae Mills MD [address] [place] [phone] PCP - General Internal Medicine 04/13/25 Additional Source Comments The information contained in this document represents components of the legal health record. It is not the complete legal health record.[facility]
--- OUTSIDE RECORDS SUMMARY | 2025-04-17 14:44 | XMS_ITS | Encounter Summary ---
Author Organization [facility] Address [address] [place] [address] [place] [phone] Phone Care Team Providers Care Breakdown Person Name Role Phone Tae Mills MD Primary Care Provid er Reason for Visit * Reason Onset Date Comments Waiting on records. 04/13/2025 Waiting on r ecos. [facility] Records for review 04/13/2025 Encounter Details Date Type Department Care Team (Late st Contact Info) Description 04/13/2025 Telephone [facility] [address] [place] [phone] Yesenia Casey MD [address] [place] [address] Orthopedics & Sports Medicine, [facility] [place] [place] [address] [email or web address] Waiting on records. (Waiting on records. ); [facility] Records for review Social History Tobacco Use Types Packs/Day Years Used Date Smoking Tobacco: Never Assessed Comments Unknown Sex and Gender Information Value Date Recorded Sex Assigned at Not on file Legal Sex Female 9:48 AM EDT Gender Identity Not on file Sexual Orientation Not on file documented as of this encounter Progress Notes * Carolyn Hess - 04/13/2025 10:04 AM EDT Waiting on records. Patient will call [facility] to request all recent medical records regarding B/L knees including date of last cortisone injection, xrays, and last MRI of left knee (@2 years ago). Plan to book with Dr. Heck After medical records are received. Elsewhere and over 10 years ago the patient had a torn meniscus surgery on her left knee. I did notask her to get those records given that it was over 10 years ago and not a joint replacement. Carolyn (04/13/25) documented in this encounter Plan of Treatment Not on file documented as of this encounter Visit Diagnoses Not on filedocumented in this encounter Care Teams Breakdown Person Relationship Specialty Start Date End Date Tae Mills MD [address] [place] [phone] PCP - General Internal Medicine 04/13/25 documented as of this encounter Additional Source Comments The information contained in this document represents components of the legal health record. It is not the complete legal health record.[facility]
== END 2025-04-17 14:40 | disposition home or self-care (01) ==
LOC: HO.MAMMO 14:39
PROVIDERS: PCP Internal Medicine; Visit Provider Internal Medicine
DX: Z12.31 Encounter for screening mammogram for malignant neoplasm of breast (principal)
CPT/HCPCS: 77063; 77067

== ENCOUNTER → 2025-04-17 15:00 | Outpatient (BNV) | payer BC, SELFPAY | PROVIDERS: PCP Internal Medicine; Visit Provider Internal Medicine | DX: Z12.31 Encounter for screening mammogram for malignant neoplasm of breast (principal) | CPT/HCPCS: 77063; 77067 ==

== ENCOUNTER 2025-07-22 10:14 | Outpatient (AMB) | payer BC, SELFPAY ==
--- OUTSIDE RECORDS SUMMARY | 2025-07-22 10:22 | XMS_ITS | Patient Health Record ---
Author Organization [facility] Address [address] [place] [address] Care Team Providers Care Educational Director Name Role Phone ANGELIA CAMARILLO Primary Care Provider Meaghan Barragan Unavailable [phone] Reason For Referral No Information Medications Medication SIG (Take, Route, Frequency, Duration) Notes Start Date End Date Status Modicon (28) 0.5-35 MG-MCG 1 tablet Oral ly Once a day; Duration: 30 day(s) 11/19/2014 Active Necon /02/02 0.5/0.75/1-35 MG-MCG 1 tablet Orally Once a day; Duration: 28 days 08/27/2014 Active Problems Problem Type SNOMED Code ICD Code Onset Dates Problem Status W/U Status Risk Notes Problem Depressive disorder (01660982) Depressive disorder, not elsewhere classified (311) Active confirmed Problem Menopausal symptom (95065149) Symptomatic menopausal or female climacteric states (627.2) Active confirmed Plan Of Treatment Pending Test Test Name Order Date TSH 08/27/2014 Insurance Providers Payer Name Payer Address Payer Phone Subscriber Number Group Number Insured Name Patient Relationship to Insured Coverage Start Date Coverage End Date [facility] [address] [place] [id number] Self - patient is the insured Medical (General) History Medical History History ICD Code Symptomatic menopausal or female climact radha states Symptomatic menopausal or female climact radha states Depressive disorder, not elsewhere class ified Surgical History Surgery Date(Month/Year) appendectomy 1990s
--- OUTSIDE RECORDS SUMMARY | 2025-07-22 10:22 | XMS_ITS | Data Portability ---
Author Organization [facility], [facility] Address [address] [place] [address] Care Team Providers Care Windows 7 Deployment Lead Name Role Phone Tae Diallo Primary Care Provider Assessment No assessment recorded. Plan of Treatment Reminders Order Date Submit Date Provider Name Organization Details Last Modified By Last Modified Time Details Appointments None recorde d. Lab None recorde d. Referral None recorde d. Procedures None recorde d. Surgeries None recorde d. Imaging MRI, knee, w/o contras t 2023 15:21: 30 024 Randi Thomas i, PA-C [facility] ([facility]) [address] [facility], [address], [place] 4 10:10:05 MedicationOrders None recorde d. VaccineOrders None recorde d. Patient TargetsNo targets recorded. Patient InstructionsNo instructions recorded. Reason for Referral None Reported. Results Created Date Observation Date Name Description Value Unit Range Abnormal Flag Specimen Type Note LastModifiedBy Organization Detail LastModifiedTime 06/21/2024 06/21/2024 MR, knee (C-) left CPT 57344 [facility] Accession Number: [id number] Patient Name: Estephania Colón Date of : 1970 Date of Exam: 06-21-2024 Referring Physician: Randi Dumont [address] [place], [place] [address] Exam: MR Knee (C-) CPT 65911 - Left Room Description: [place] [facility] 3T MR Knee (C-) CPT 62695 CLINICAL INDICATION: Reason For Exam: M17.0 - [...] patella Electronically Signed By: Miguel Dumont PA-C [facility] ([facility]) , [address] [place] [address] , [place] , [address], [place] , 06/23/2024 13:37:14 Result Notes Documentation Provider Name and Address Organization Details Recorded Time Mri, Knee, W/o Contrast : [facility] Accession Number: [id number] Patient Name: Estephania Colón Date of : 1970 Date of Exam: 06-21-2024 Referring Physician: Randi Dumont [address] [place], [place] [address] [address] [place], [place] [address] Exam: MR Knee (C-) CPT 33593 - Left Room Description: [facility] 3T MR Knee (C-) CPT 44345 CLINICAL INDICATION: Reason For Exam: M17.0 - [...] Electronically Signed By: Miguel Dumont PA-C [address], [place], [address], [facility] 06/23/2024 13:37:14 Problems Name Problem SNOMED Code Status Onset Date Resolution Date Notes Provider Name and Address Organization Details Recorded Time Pain of left knee joint 5092820579945 07 Active 2023 Randi Thomas i, PA-C [address], [place], [address], [facility] 4 12:48:03 Osteoarthri tis of left knee joint 6117407995420 09 Active 2023 Randi Pinto PA-C [address], [place], [address], [facility] 5 12:18:08 Bilateral osteoarthri tis of knees 3846651429986 07 Active 2023 Randi Thomas i, PA-C [address], [place], [address], [facility] 4 16:45:24 Pain of bilateral knee joints 7620885592690 04 Active 2023 Randi Thomas i, PA-C [address] [facility], [place], [address], [facility] 4 08:40:16 Problem Notes None recorded. Procedures Surgical History Date Name Laterality Status Provider Name and Address Organization Details Recorded Time 5 Knee Kenalog 1cc L/R completed William Vizcaino PA-C [address], [place], [address], [facility] 01/16/2025 16:48:28 5 Zilretta Knee Injection, L/R completed Randi Pinto PA-C [address] [facility], [place], [address], [facility] 10/13/2024 12:16:57 4 Sports Knee 4&1 completed Randi Dumont PA-C [address] [facility], [place], [address], [facility] 07/11/2024 14:58:16 4 Sports Knee 4&1 completed Randi Dumont PA-C [address] [facility], [place], [address], [facility] 03/07/2024 12:50:13 Imaging Results Imaging Date Name Status LastModifiedBy Organiza tion Detail LastModifiedTime 06/21/2024 MR, knee (C-) left CPT 67655 completed Randi Dumont PA-C [facility] ([facility]) , [address] [facility] , [place] , [address], [place] , 06/23/2024 13:37:14 Procedure Notes None recorded. Medical Equipment None Reported. Allergies Allergen ID Allergen Name Allergen Category Reaction Reaction Severity Criticality Documentation Date Start Date Code Code System Note Provider Name and Address Organization Details Recorded Time [id number] cephalexi n medicatio n hives Not available Not available 03/07/2024 2231 RxNorm Randi Thomas i, PA-C [address], [place], [address], [facility] 4 12:48:51 Medications Name Authored On Sig Start Date Stop Date Status Note Indication Fill Status Repeat Number Dispense Quantity LastModified by Organization Details LastModified Time GaviL yte-G 236 gram- 22.74 gram- 6.74 gram- 5.86 gram oral solut ion 4 08:40:56 03/07 aborted Not Available Not availab le 0 Not Available LEYLA LUNDBERG [facility] 03/07/2024 15:27:46 bisac odyl 5 mg table t,del aydarryl relea se 4 08:40:56 03/07 aborted Not Available Not availab le 0 Not Available Randi Dumont PA-C [address], [place], [address], [facility] 03/07/2024 16:46:23 metro nidaz ole 0.75 % (37.5 mg/5 gram) vagin al gel 4 08:40:56 INSE RT 1 APPL ICAT ORFU L VAGI SOO Y AT BEDT ANUP FOR 5 DAYS 03/07 aborted Not Available Not availab le 0 Not Available Randi Dumont PA-C [address], [place], [address], [facility] 03/07/2024 16:46:28 metro nidaz ole 500 mg table t 4 05:26:49 TAKE 1 TABL ET BY MOUT H TWIC E JUAN A Y FOR 7 DAYS 09/12 aborted Not Available Not availab le 0 Not Available trent marquis [facility] 09/12/2024 14:37:56 fluoc inolo ne aceto nide oil 0.01 % ear drops 4 05:26:49 INST ILL 5 DROP S INTO THE LEFT EAR TWIC E JUAN A Y FOR 7 DAYS 09/12 aborted Not Available Not availab le 0 Not Available [facility] 09/12/2024 14:38:02 IBU 600 mg table t 14:38:56 Take 1 tabl et 3 time s a day by oral rout e. active Not Available Not availab le 0 Not Available [facility] 09/12/2024 14:38:56 cyclo benza nahed 10 mg table t 16:26:29 [facility] FOR MUS[facility] LE SPAS M active Not Available Not availab le 0 Not Available Not Available eva - External Data Service - prod 01/13/2025 16:26:29 Vitals Date Recorded Body height Body mass index (BMI) Body weight Provider Name and Address Organization Details Last Updated DateTime 09/12/2024 154.94 cm 24.2 kg/m2 00380.82 g trent [facility] 09/12/2024 14:37:47 Date Recorded Body height Body mass index (BMI) Body weight Provider Name and Address Organization Details Last Updated DateTime 10/13/2024 154.94 cm 24.6 kg/m2 44486.01 g Yvonne Jaren [facility] 10/13/2024 13:55:25 Date Recorded Body height Provider Name an d Address Organization Details Last Updated DateTime 01/16/2025 154.94 cm HARSHAL LOPEZ [facility] 01/16/2025 15:51:13 Date Recorded Body height Body mass index (BMI) Body weight Provider Name and Address Organization Details Last Updated DateTime 06/13/2024 154.94 cm 24.2 kg/m2 75703.82 g KAYLIA L'HEUREUX [facility] 06/13/2024 14:54:42 Date Recorded Body height Body mass index (BMI) Body weight Provider Name and Address Organization Details Last Updated DateTime 07/11/2024 154.94 cm 24.2 kg/m2 93925.82 g Yvonne Groverton [facility] 07/11/2024 14:26:51 Social History Question Answer Notes LastModified by Organizat ion Details LastModified Time Tobacco Smoking Status Former Smoker [facility] 03/07/2024 15:28:51 What Is Your Level Of Alcohol Consumption? Occasional LEYLA LUNDBERG [facility] 03/07/2024 15:28:51 When did you quit smoking? 16+ years since last cigarette LEYLA LUNDBERG [facility] 03/07/2024 15:28:51 Have you ever been counseled for unhealthy alcohol use? No LEYLA LUNDBERG [facility] 03/07/2024 15:28:51 Which illicit or recreational drugs have you used? marijuana LEYLA LUNDBERG [facility] 03/07/2024 15:28:51 Social History Observation Description Date Observed Sex Unknown 07/18/2025 Legal Sex Female Status Not (finding) 07/22/20 25 No social history survey screeners recorded No social history SDOH screeners recorded Functional Status Question Answer Note LastModified by Organizat ion Details LastModified Time Do you or have you ever used any other forms of tobacco or nicotine? No LEYLA LUNDBERG [facility] 03/07/2024 15:28:51 What is your level of alcohol consumption? Occasional LEYLA LUNDBERG [facility] 03/07/2024 15:28:51 How many times per week do you consume alcohol? 1-2 times per week LEYLA LUNDBERG [facility] 03/07/2024 15:28:51 Do you use any illicit or recreational drugs? Yes LEYLA LUNDBERG [facility] 03/07/2024 15:28:51 No Functional Screening assessment recorded No Functional SDOH screeners recorded Mental Status None recorded. No Mental Screening assessment recorded No Mental SDOH screeners recorded Family History Nothing Reported. Medical History Condition Response Allergies/Hayfever N Coronary Artery Disease N Anxiety/Depression N Breathing or lung disorders N Emphysema N Nerve Disorders N Thyroid Problems N COPD N Pacemaker N Anemia N Kidney/Bladder Problems N Vascular Disease N Heart Trouble N Heart Attack (AL) N Gastrointestinal Disease N Cholesterol N Diabetes [...] Diagnosis SNOMED-CT Code Diagnosis ICD10 Code Diagnosis IMO Codes Diagnosis Note [id number] CH[facility] Pang [address] [place] [address] 03/07/2024 15:23:05 03/28/2024 08:06:51 Pain of bilateral knee joints [id number] 88643 M25.561 M25.562 Bilateral osteoarthritis of knees 6264855354 85470 M17.0 [id number] Randi Dumont PA-C [facility] [address] [place] [address] 06/13/2024 14:41:34 07/03/2024 10:10:05 Bilateral osteoarthritis of knees 4244656983 44845 M17.0 [id number] [facility] [address] [place] [address] 07/11/2024 14:15:23 07/31/2024 14:17:43 Bilateral osteoarthritis of knees 8487294842 33389 M17.0 [id number] CHAYO Sevilla [facility] [address] [place] [address] 09/12/2024 14:28:03 10/01/2024 07:36:10 Bilateral osteoarthritis of knees 1985992026 95373 M17.0 [id number] CHAYO Sevilla [facility] [address] [place] [address] 10/13/2024 13:51:27 10/27/2024 13:46:36 Osteoarthritis of left knee joint 3159815762 65019 M17.12 [id number] CHAYO Bruno [address] , [place] [address] 01/16/2025 15:48:18 01/23/2025 14:45:26 Instability of joint of left knee 5058905479 557044 M25.362 [id number] Health Concerns Section Related Observation LastModified by Organization Detai ls LastModified Time None Recorded Concern Status LastModified by Organization Details LastModified Time None Recorded SDOH Concern Status LastModified by Organization Det ls LastModified Time None Recorded Advance Directives Directive None Recorded Payers Insurance Date Sequence Insurance Name Policy Number Policy Pandey Covered Member ID Pandey Member ID Guarantor Name 01/23/2025 1 [facility] [id number] Estephania Colón [id number] Estephania Colón Notes Date Note Type Note Provider Name [...] has a vacation scheduled in June to [place]. HPI: History of left knee menisectomy at [facility] 10+ years ago, no records available today. Localizes the pain to the lateral aspect of her left knee especially and a crepitus, popping sensation. Occasionally describes knee locking and having to unlock her knee. Pain exacerbated by squatting, pivoting, at night, getting up from a seated position. About 5 years ago received a cortisone injection at [facility] with good relief. She takes motrin daily. Past family, social history and review of systems has been reviewed, updated and is located in the patient s chart. X-RAYS:Previous 4v X-rays of the Left knee reviewed today at [facility] demonstrate moderate medial compartment narrowing on [...] and agrees with the plan. Speech recognition fish skinning machine feeder software was used to create portions of this document. An attempt at proofreading has been made to minimize errors. Please call for corrections. Randi Dumont PA-C [address] [facility] [address] [facility], [place], [address], [facility] 06/13/2024 15:42:24 4 text/html [...] HPI: History of left knee menisectomy at [facility] 10+ years ago, no records available today. Localizes the pain to the medial and lateral aspect of her left knee especially and a crepitus, popping sensation. Occasionally describes knee locking and having to unlock her knee. Pain exacerbated by squatting, pivoting, at night, getting up from a seated position. About 5 years ago received a cortisone injection at [facility] with good relief. She takes motrin daily. Past family, social history and review of systems has been reviewed, updated and is located in the patient s chart.X-RAYS:Previous 4v X-rays of the Left knee reviewed today at [facility] demonstrate severe medial compartment narrowing on the left with early medial femoral condyle osteophyte formation, while on the right more mild to moderate with no osteophyte formation. Moderate patellofemoral space narrowing bilaterally with osteophyte formation. MRI Agnknlh21/23/24 of the left knee independently reviewed today [...] and agrees with the plan. Speech recognition fish skinning machine feeder software was used to create portions of this document. An attempt at proofreading has been made to minimize errors. Please call for corrections. Randi Dumont PA-C [address] [place] [address] [address], [place], [address], [facility] 07/11/2024 14:58:56 5 text/html [...] HPI: History of left knee menisectomy at [facility] 10+ years ago, no records available today. Localizes the pain to the medial and lateral aspect of her left knee especially and a crepitus, popping sensation. Occasionally describes knee locking and having to unlock her knee. Pain exacerbated by squatting, pivoting, at night, getting up from a seated position. About 5 years ago received a cortisone injection at [facility] with good relief. She takes motrin daily. Past family, social history and review of systems has been reviewed, updated and is located in the patient s chart.X-RAYS:Previous 4v X-rays of the Left knee reviewed today at [facility] demonstrate severe medial compartment narrowing on the left with early medial femoral condyle osteophyte formation, while on the right more mild to moderate with no osteophyte formation. Moderate patellofemoral space narrowing bilaterally with osteophyte formation. MRI Zaywihu59/23/24 of the left knee reviewed today demonstrates: [...] and agrees with the plan. Speech recognition fish skinning machine feeder software was used to create portions of this document. An attempt at proofreading has been made to minimize errors. Please call for corrections. Randi Pinto PA-C [address] [facility] [address] [facility], [place], [address], [facility] 09/12/2024 14:57:29 5 text/html [...] and follow up as needed. Speech recognition fish skinning machine feeder software was used to create portions of this document. An attempt at proofreading has been made to minimize errors. Please call for corrections. Randi Pinto PA-C [address] [place] [address] [address] [facility], [place], [address], [facility] 10/13/2024 14:23:47 5 text/html I am seeing the patient today under the supervision of who was available but who did not see the patient. Chief Complaint The patient presents today for recheck of left knee osteoarthritis. Is known to have knee arthritis treated conservatively to this point with 3 months relief of symptoms. Presents today for recheck secondary to increased knee pain. complaining today of instability in the left leg with walking and stairs. She feels like it wants to give out on her regularly. Past Medical/Surgical History Reviewed today, otherwise unchanged per intake sheet. Physical Findings General Appearance: Well developed. In no acute distress. Musculoskeletal System: Knee: General/bilateral: No laxity of the knee. Right Knee: Medial aspect was tender on palpation. No erythema. No warmth. Left Knee: Medial aspect was tender on palpation. No erythema. No warmth. Musculoskeletal Scales: General/bilateral: Mild effusion noted. Neurological: Oriented to time, place, and person. Gait And Stance: Normal. Psychiatric: Mood was appropriate to the affect. Left knee 0-120 degrees of flexion with discomfort. laxity With valgus stress of 10 Assessment Osteoarthritis of knee - Plan More than 50% of todays visit was spent on direct patient counseling regarding their knee condition and treatment options both operative with knee arthroplasty and non-operative, including oral medications and injection therapy. After discussion, my clinical decision was to go forth with an intra-articular cortisone injection. After explaining risks and benefits, under meticulous aseptic technique, the knee was injected with, 1cc of Kenalog 40mgs and 4 cc of Marcaine 1/4%. They tolerated the procedures well. Post injection precautions reviewed. Follow up with us in 3 months for further discussion of total knee replacement surgery versus continued conservative treatment. in regards to the left knee given her laxity or instability on examination would recommend a medial sawmill hand brace.The patient is ambulatory, but has weakness and/or instability of their extremity which requires stabilization from this semi-rigid/rigid orthosis to improve their function.Verbal and written instructions for the use and application of this item were given. Patient was instructed that should the brace result in increased pain, decreased sensation, increased swelling or an overall worsening of their medical condition, to pelase contact our office immediately. William Vizcaino PA-C [address] [facility] [address], [place], [address], [place] [facility] 01/16/2025 16:48:43 Care Team Name Role Member ID Specialty Address Phone TAE DIALLO MD Primary Care Provider [id number] [place] [address] [address], [place], [place] OBGyn Episode No OBEpisode recorded.
--- OUTSIDE RECORDS SUMMARY | 2025-07-22 10:22 | XMS_ITS | Clinical Summary ---
Author Organization [facility] Address [address] [place] [address] Phone Care Team Providers Care It Program Engagement Director Name Role Phone Tae Mills MD Primary Care Provid er Encounters Date Type Department Care Team Description 05/27/2025 Telephone [facility] [address] [place] [address] Lulu Topete RN PT referral 05/15/2025 1:45 PM EDT Office Visit [facility] [address] [address] Yesenia Casey MD Primary osteoarthritis of both knees (Primary Dx); Pain 05/15/2025 1:05 PM EDT - 05/15/2025 11:59 PM EDT Hospital Encounter [address] [id number] Yseenia Casey MD Discharge Disposition: Home or Self Care from Last 3 Months Social History Tobacco Use Types Packs/Day Years Used Date Smoking Tobacco: Never Assessed Education Answer Date Recorded Are you interested in more education? Not on nia e 04/17/2025 Are you concerned about learning? Not on file 04/17/2025 No 04/17/2025 No 04/17/2025 Digital Access Answer Date Recorded No 04/17/2025 No 04/17/2025 Reliable internet access at home? Not on file 04/17/2025 Device with a working camera? Not on file Comments Unknown Sex and Gender Information Value Date Recorded Sex Assigned at Not on file Legal Sex Female 9:48 AM EDT Gender Identity Not on file Sexual Orientation Not on file Plan of Treatment Upcoming Encounters Date Type Department Care Team (Late st Contact Info) Description 08/25/2025 10:00 AM EST Procedure visit [facility] [address] [place] [address] Yesenia Casey MD [address] [place] [address] Orthopedics & Sports Medicine, [facility] [place] [address] [email or web address] Maintenance Due Date Last Done Comments LIPID PANEL 1968 DEPRESSION SCREENING 1980 SMOKING Hx and SMOKELESS TOBACCO SCREENING 1981 HEPATITIS C SCREENING 1986 HIV ONE-TIME SCREENING (18-65 YEARS) 1986 PAP SMEAR 1989 MAMMOGRAM 2008 COLOGUARD 2013 COLONOSCOPY 2013 COLORECTAL CANCER SCREENING 2013 FIT TEST 2013 FOBT 2013 SIGMOIDOSCOPY 2013 VIRTUAL COLONOSCOPY 2013 PNEUMOCOCCAL VACCINES (50+ years) (1 of 1 - PCV) 2018 Adult Td,Tdap Booster 11/02/2018 11/02/2008 RSV VACCINE (1 - 1-dose 75+ series) 2043 ZOSTER VACCINES Completed 12/03/2021, 10/09/2021 INFLUENZA VACCINE Completed 03/06/2025, , 04/22/2023, Additional history exists COVID-19 VACCINE Completed 04/08/2025, 07/2023, 04/22/2023, Additional history exists HEPATITIS A VACCINES Aged Out No long er eligible based on patient's age to complete this topic HIB VACCINES Aged Out No longer eligi ble based on patient's age to complete this topic MENINGOCOCCAL VACCINES (ACWY) Aged Out No longer eligible based on patient's age to complete this topic MENINGOCOCCAL VACCINES (B) Aged Out N o longer eligible based on patient's age to complete this topic Medical Devices Not on file Procedures Procedure Name Priority Date/Time Associated Diagnosis Comments XR KNEE 4 OR MORE VIEWS (LEFT) Routine 05/15/2025 1:28 PM EDT Pain from Last 3 Months Results * XR KNEE 4 OR MORE VIEWS (LEFT) (05/15/2025 1:28 PM EDT) Narrative SYSTEMGENERATED, DOCUMENTATION - 05/15/2025 1:28 PM EDT This image report has been auto-finalized and has not been read by a Radiologist. Interpretation has been included in the provider encounter note for this date of service. us Yesenia Casey MD IMG XR LOWER EXTREMITY Fi nal Result from Last [address] [place] [address] [place] [address] [facility] [place] [address] [place] [address] [facility] Care Teams It Program Engagement Director Relationship Specialty Start Date End Date Tae Mills MD [address] [place] [phone] PCP - General Internal Medicine 04/13/25 Additional Source Comments The information contained in this document represents components of the legal health record. It is not the complete legal health record.[facility]
[2025-07-22 10:27] VITALS: BP 110/76; BMI 26.1
--- NOTE | 2025-07-22 10:27 | MHC.OFFVIS ---
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 She is up-to-date on her mammograms and her next 1 is coming up in July. She was getting more hot flashes and then they stopped and then they kind of came back to during the day but they are not bad. she sees her primary care provider or whoever is given to her at the office and has no major health concerns though she is going to be getting some gel injection for her knee to help stave off knee replacement surgery for her left knee. 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 She also walks it [employer] [facility] Medical History Cervical spine pain Rash and nonspecific skin eruption Rash Asthma Surgical History History of left knee surgery Hx of appendectomy Family History Mother Cancer Father Heart problem Brother Colon cancer Sister Uterine cancer Social History Housing: House Alcohol intake: current Alcohol intake frequency: holidays/special occasions only Patient Tobacco Use Status: Former Tobacco user Tobacco use type: Cigarette Cigarette Packs Per Day: 1 Years Smoked: 21 years stopped at 33 y/o e-Cigarette/Vaping Use: Never Used Second Hand Smoke Exposure: Yes service: No Current occupational status: employed Current occupation: right handed - [employer] at [employer] Cognitive needs: No Hearing needs: No Vision needs: Yes (Contact lenses) Female Reproductive History Menstrual Age of Menarche: 9 Menopause type: natural Age of menopause: 41 Total pregnancies: 0 Number of Living Children: 0 Date of last pap smear: 06/29/23 History of abnormal pap smear: No Date of Mammogram: 04/17/25 (Bi Rad 1) History of abnormal mammogram: No Physical Exam Vital Signs: Last Vital Signs BP 110/76 07/22/25 10:27 BMI result Body Mass Index 26.1 Const General: healthy appearing, comfortable, no acute distress, well developed and alert Nutritional Appearance: average body habitus Orientation/consciousness: patient oriented x3 Limitations: no limitations HEENT Head: Yes normocephalic Neck Neck: Yes normal visual inspection Chest Chest palpation & inspection: normal inspection of the chest Breast/axilla inspection: normal inspection of the breasts and normal inspection of the axillae Breast/axilla palpation: normal palpation of the breasts and normal palpation of the axillae Resp Effort & Inspection: normal respiratory effort GI Inspection: Yes normal to inspection, No Abdominal wall edema and No distended Palpation (GI): Soft to palpation and nontender Other: External exam within normal limits vagina pink and moist cervix nulliparous pink smooth healthy appearing cervix long close thick mobile nontender uterus anteverted mobile nontender adnexa nontender very good tone with Kegel. General: Yes bladder normal to palpation External Female Exam: normal external appearance and normal appearance of the urethra Speculum Exam - Vagina: normal appearance of the vagina, normal palpation and normal vaginal discharge Speculum Exam - Cervix: normal appearance of the cervix, normal palpation and nontender Bimanual exam- vagina & uterus: normal bimanual exam, normal palpation, uterine size normal, bladder normal to palpation, consistency normal, normal palpation, uterine mobility normal, uterine shape normal, No Cervical tenderness present, non-tender and no cervical motion tenderness Bimanual Exam- Adnexa, other: normal adnexae, no masses, normal and No adnexal tenderness Neuro General: patient oriented x3 Results Reviewed Results Reviewed: Name: Estephania Colón Age/Sex: 53/F Attending: Gloria Conrad CNM : 1970 Submitted by: Gloria Conrad CNM Copies to: Tae Mills MD MR #: [id number] Status: DEP REF Collected: 06/29/23 Location: [facility] Received: 07/03/23 Interpretation General Category: Negative for intraepithelial lesion/malignancy. Adequacy: Endocervical component present. Interpretation: Reactive cellular changes. Abundant blood. HPV mRNA E6/E7: Not Detected This assay detects E6/E7 viral messenger RNA (mRNA) from 14 high-risk HPV types (16, 18, 31, 33, 35, 39, 45, 51, 52, 56, 58, 59, 66, 68) HPV testing performed by [facility], [place], [place]. See reference laboratory portion of the EMR for entire report. Clinical Information LMP: No menses Previous PAP test: 2018, WNL Material Received ThinPrep-Cervical Copies To Gloria Conrad CNM [address] [place] [address] Dr. [address] [place] [address] Tae Mills MD [address] [place] [address] Dr. [address] [place] [address] Electronically Signed By: Sandra Pascual 07/10/23 2304 The Pap Test is a screening procedure with the inherent possibility of both false negative and false positive results. Results should be interpreted in the context of historic and current clinical findings. Reliability of the Pap Test is enhanced by performing the test on a Patient: Estephania Colón Age/Sex: 53/F MR#: [id number] Page 1 of 2 Assessment & Plan Assessment & Plan (1) Cervical cancer screening: Comment: pap done 06/29/23= negative with negative HPV. Code(s): Z12.4 - Encounter for screening for malignant neoplasm of cervix Category: Medical (2) Well woman exam with routine gynecological exam: Code(s): Z01.419 - Encounter for gynecological examination (general) (routine) without abnormal findings Category: Medical (3) Postmenopausal: Code(s): Z78.0 - Asymptomatic menopausal state Category: Medical Plan -----Discussed in this visit the following: healthy balanced diet, regular and consistent exercise, getting recommended health screens, doing the best she can for her particular health concerns, kegel exercises, pap smear screening and followup recommendations, mammography screening and SBE, normal changes in cycles in her life stage--- . Discussed all that she does to keep herself in good health and she is feeling very good overall. She is going to be seeing orthopedist and her primary care and getting her mammogram soon. She feels like she is in a good situation it with a her relationship and is doing her best with her self-care and is mindful and careful with things. She loves the environment she works in and appreciates the beautiful trees around her at the [facility]. RTC 1 year. Coding Level of Care Code Est Pt Prev Care 40-64y(64962) Diagnoses Cervical cancer screening Z12.4 Well woman exam with routine gynecological exam Z01.419 Postmenopausal Z78.0
== END 2025-07-22 11:14 | disposition home or self-care (01) ==
LOC: HO.HWSM 10:14
PROVIDERS: PCP Internal Medicine; Visit Provider Advanced Practice Midwife
DX: Z01.419 Encounter for gynecological examination (general) (routine) without abnormal findings (principal); Z12.4 Encounter for screening for malignant neoplasm of cervix; Z78.0 Asymptomatic menopausal state
CPT/HCPCS: 99396; 99459

== ENCOUNTER 2025-07-22 10:14 | Outpatient (REF) | payer BC, SELFPAY ==
--- OUTSIDE RECORDS SUMMARY | 2025-07-22 11:44 | XMS_ITS | Data Portability ---
Author Organization [facility], [facility] Address [address] [place] [address] Care Team Providers Care Filling Winder Name Role Phone Tae Diallo Primary Care [...] 15:21: 30 024 Randi Thomas i, PA-C [facility] ([facility]) [address] [facility] [place], [address], [place] [employer] 4 10:10:05 MedicationOrders None recorde d. VaccineOrders None recorde d. Patient TargetsNo targets recorded. Patient InstructionsNo instructions recorded. Reason for Referral None Reported. Results Created Date Observation Date Name Description Value Unit Range Abnormal Flag Specimen Type Note LastModifiedBy Organization Detail LastModifiedTime 06/21/2024 06/21/2024 MR, knee (C-) left CPT 88043 [facility] Accession Number: [id number] Patient Name: Estephania Colón Date of : 1970 Date of Exam: 06-21-2024 Referring Physician: Randi Dumont [address] [place], [place] [address] Exam: MR Knee (C-) CPT 04496 - Left Room Description: [facility] Pion 3T MR Knee (C-) CPT 24111 CLINICAL INDICATION: Reason For Exam: M17.0 - [...] patella Electronically Signed By: Miguel Dumont PA-C [facility] ([facility]) , [address] [place] [address] , [place] , [address], [place] , 06/23/2024 13:37:14 Result Notes Documentation Provider Name and Address Organization Details Recorded Time Mri, Knee, W/o Contrast : [facility] Accession Number: [id number] Patient Name: Estephania Colón Date of : 1970 Date of Exam: 06-21-2024 Referring Physician: Randi Dumont [address] [place], [place] [address] [place], [place] [address] Exam: MR Knee (C-) CPT 66824 - Left Room Description: [facility] 3T MR Knee (C-) CPT 53207 CLINICAL INDICATION: Reason For Exam: M17.0 - [...] Electronically Signed By: Miguel Dumont PA-C [address], [place], [address], [facility] 06/23/2024 13:37:14 Problems Name Problem SNOMED Code Status Onset Date Resolution Date Notes Provider Name and Address Organization Details Recorded Time Pain of left knee joint 2718481295540 07 Active 2023 Randi Thomas i, PA-C [address], [place], [address], [facility] 4 12:48:03 Osteoarthri tis of left knee joint 5515700796017 09 Active 2023 Randi Pinto PA-C [address], [place], [address], [facility] 5 12:18:08 Bilateral osteoarthri tis of knees 8897068429955 07 Active 2023 Randi Thomas i, PA-C [address], [place], [address], [facility] 4 16:45:24 Pain of bilateral knee joints 8507890459036 04 Active 2023 Randi Thomas i, PA-C [address] [facility], [place], [address], [facility] 4 08:40:16 Problem Notes None recorded. Procedures Surgical History Date Name Laterality Status Provider Name and Address Organization Details Recorded Time 5 Knee Kenalog 1cc L/R completed William Vizcaino PA-C [address], [place], [address], [facility] 01/16/2025 16:48:28 5 Zilretta Knee Injection, L/R completed Randi Pinto PA-C [address] [facility], [place], [address], [facility] 10/13/2024 12:16:57 4 Sports Knee 4&1 completed Randi Dumont PA-C [address] [facility], [place], [address], [facility] 07/11/2024 14:58:16 4 Sports Knee 4&1 completed Randi Dumont PA-C [address] [facility], [place], [address], [facility] 03/07/2024 12:50:13 Imaging Results Imaging Date Name Status LastModifiedBy Organiza tion Detail LastModifiedTime 06/21/2024 MR, knee (C-) left CPT 64489 completed Randi Dumont PA-C [facility] ([facility]) , [address] [facility] , [place] , [address], [place] , 06/23/2024 13:37:14 Procedure Notes None recorded. Medical Equipment None Reported. Allergies Allergen ID Allergen Name Allergen Category Reaction Reaction Severity Criticality Documentation Date Start Date Code Code System Note Provider Name and Address Organization Details Recorded Time [id number] cephalexi n medicatio n hives Not available Not available 03/07/2024 2231 RxNorm Randi Thomas i, PA-C [address], [place], [address], [facility] 4 12:48:51 Medications Name Authored On Sig Start Date Stop Date Status Note Indication Fill Status Repeat Number Dispense Quantity LastModified by Organization Details LastModified Time GaviL yte-G 236 gram- 22.74 gram- 6.74 gram- 5.86 gram oral solut ion 4 08:40:56 03/07 aborted Not Available Not availab le 0 Not Available LEYLA LUNDBERG [facility] 03/07/2024 15:27:46 bisac odyl 5 mg table t,del aydarryl relea se 4 08:40:56 03/07 aborted Not Available Not availab le 0 Not Available Randi Dumont PA-C [address], [place], [address], [facility] 03/07/2024 16:46:23 metro nidaz ole 0.75 % (37.5 mg/5 gram) vagin al gel 4 08:40:56 INSE RT 1 APPL ICAT ORFU L VAGI SOO Y AT BEDT ANUP FOR 5 DAYS 03/07 aborted Not Available Not availab le 0 Not Available Randi Dumont PA-C [address], [place], [address], [facility] 03/07/2024 16:46:28 metro nidaz ole 500 mg table t 4 05:26:49 TAKE 1 TABL ET BY MOUT H TWIC E JUAN A Y FOR 7 DAYS 09/12 aborted Not Available Not availab le 0 Not Available trent marquis [facility] 09/12/2024 14:37:56 fluoc inolo ne aceto nide oil 0.01 % ear drops 4 05:26:49 INST ILL 5 DROP S INTO THE LEFT EAR TWIC E JUAN A Y FOR 7 DAYS 09/12 aborted Not Available Not availab le 0 Not Available [facility] 09/12/2024 14:38:02 IBU 600 mg table t 14:38:56 Take 1 tabl et 3 time s a day by oral rout e. active Not Available Not availab le 0 Not Available [facility] 09/12/2024 14:38:56 cyclo benza nahed 10 mg table t 16:26:29 TAKE 1 TABL ET BY MOUT H AT [facility] NEED ED FOR MUS[facility] LE SPAS M active Not Available Not availab le 0 Not Available Not Available eva - External Data Service - prod 01/13/2025 16:26:29 Vitals Date Recorded Body height Body mass index (BMI) Body weight Provider Name and Address Organization Details Last Updated DateTime 09/12/2024 154.94 cm 24.2 kg/m2 22872.82 g trent [facility] 09/12/2024 14:37:47 Date Recorded Body height Body mass index (BMI) Body weight Provider Name and Address Organization Details Last Updated DateTime 10/13/2024 154.94 cm 24.6 kg/m2 16517.01 g Yvonne Jaren [facility] 10/13/2024 13:55:25 Date Recorded Body height Provider Name an d Address Organization Details Last Updated DateTime 01/16/2025 154.94 cm HARSHAL LOPEZ [facility] 01/16/2025 15:51:13 Date Recorded Body height Body mass index (BMI) Body weight Provider Name and Address Organization Details Last Updated DateTime 06/13/2024 154.94 cm 24.2 kg/m2 09206.82 g KAYLIA L'HEUREUX [facility] 06/13/2024 14:54:42 Date Recorded Body height Body mass index (BMI) Body weight Provider Name and Address Organization Details Last Updated DateTime 07/11/2024 154.94 cm 24.2 kg/m2 33596.82 g Yvonne Groverton [facility] 07/11/2024 14:26:51 Social History Question Answer Notes LastModified by Organizat ion Details LastModified Time Tobacco Smoking Status Former Smoker LEYLA LUNDBERG [facility] 03/07/2024 15:28:51 What Is Your Level Of Alcohol Consumption? Occasional LEYLA LUNDBERG [facility] 03/07/2024 15:28:51 When did you quit smoking? 16+ years since last cigarette LEYLA LUNDBERG [facility] 03/07/2024 15:28:51 Have you ever been counseled for unhealthy alcohol use? No LEYLA LUNDBERG [facility] 03/07/2024 15:28:51 Which illicit or recreational drugs have you used? marijuana LEYLA LUNDBERG [facility] 03/07/2024 15:28:51 Social History Observation Description Date Observed Sex Unknown 07/18/2025 Legal Sex Female Status Not (finding) 07/22/20 25 No social history survey screeners recorded No social history SDOH screeners recorded Functional Status Question Answer Note LastModified by Organizat ion Details LastModified Time Do you or have you ever used any other forms of tobacco or nicotine? No LEYLA LUNDBERG [facility] 03/07/2024 15:28:51 What is your level of alcohol consumption? Occasional LEYLA LUNDBERG [facility] 03/07/2024 15:28:51 How many times per week do you consume alcohol? 1-2 times per week LEYLA LUNDBERG [facility] 03/07/2024 15:28:51 Do you use any illicit or recreational drugs? Yes LEYLA LUNDBERG [facility] 03/07/2024 15:28:51 No Functional Screening assessment recorded [...] Disease N Heart Trouble N Heart Attack ([place]) N Gastrointestinal Disease N Cholesterol N Diabetes [...] ICD10 Code Diagnosis IMO Codes Diagnosis Note [id number] CHAYO Pang [address] [place] [address] 03/07/2024 15:23:05 03/28/2024 08:06:51 Pain of bilateral knee joints 8499830896 52554 M25.561 M25.562 Bilateral osteoarthritis of knees 2531128293 76884 M17.0 [id number] Randi Dumont PA-C [facility] [address] [place] [address] 06/13/2024 14:41:34 07/03/2024 10:10:05 Bilateral osteoarthritis of knees 1921219731 63970 M17.0 [id number] [facility] Pang [address] [place] [address] 07/11/2024 14:15:23 07/31/2024 14:17:43 Bilateral osteoarthritis of knees 7633271542 39306 M17.0 [id number] CHAYO Sevilla [facility] [address] [place] [address] 09/12/2024 14:28:03 10/01/2024 07:36:10 Bilateral osteoarthritis of knees 0957790759 78924 M17.0 [id number] CHAYO Sevilla [facility] [address] [place] [address] 10/13/2024 13:51:27 10/27/2024 13:46:36 Osteoarthritis of left knee joint 1913629311 10036 M17.12 8355229 [id number] CHAYO Bruno [address] , [place] [address] 01/16/2025 15:48:18 01/23/2025 14:45:26 Instability of joint of left knee 1600561917 634043 M25.362 [id number] Health Concerns Section Related Observation LastModified by Organization Detai ls LastModified Time None Recorded Concern Status LastModified by Organization Details LastModified Time None Recorded SDOH Concern Status LastModified by Organization Det ls LastModified Time None Recorded Advance Directives Directive None Recorded Payers Insurance Date Sequence Insurance Name Policy Number Policy Pandey Covered Member ID Pandey Member ID Guarantor Name 01/23/2025 1 [facility] [id number] Estephania Colón [id number] Estephania Colón Notes Date Note Type [...] has a vacation scheduled in June to [place]. HPI: History of left knee menisectomy at [facility] 10+ years ago, no records available today. Localizes the pain to the lateral aspect of her left knee especially and a crepitus, popping sensation. Occasionally describes knee locking and having to unlock her knee. Pain exacerbated by squatting, pivoting, at night, getting up from a seated position. About 5 years ago received a cortisone injection at [facility] with good relief. She takes motrin daily. Past family, social history and review of systems has been reviewed, updated and is located in the patient s chart. X-RAYS:Previous 4v X-rays of the Left knee reviewed today at [facility] demonstrate moderate medial compartment narrowing on [...] and agrees with the plan. Speech recognition room attendants software was used to create portions of this document. An attempt at proofreading has been made to minimize errors. Please call for corrections. Randi Dumont PA-C [address] [facility] [address] [facility], [place], [address], [facility] 06/13/2024 15:42:24 4 text/html [...] HPI: History of left knee menisectomy at [facility] 10+ years ago, no records available today. Localizes the pain to the medial and lateral aspect of her left knee especially and a crepitus, popping sensation. Occasionally describes knee locking and having to unlock her knee. Pain exacerbated by squatting, pivoting, at night, getting up from a seated position. About 5 years ago received a cortisone injection at [facility] with good relief. She takes motrin daily. Past family, social history and review of systems has been reviewed, updated and is located in the patient s chart.X-RAYS:Previous 4v X-rays of the Left knee reviewed today at [facility] demonstrate severe medial compartment narrowing on the left with early medial femoral condyle osteophyte formation, while on the right more mild to moderate with no osteophyte formation. Moderate patellofemoral space narrowing bilaterally with osteophyte formation. MRI Dshgrdr09/23/24 of the left knee independently reviewed today [...] and agrees with the plan. Speech recognition room attendants software was used to create portions of this document. An attempt at proofreading has been made to minimize errors. Please call for corrections. Randi Dumont PA-C [address] [place] [address] [address], [place], [address], [facility] 07/11/2024 14:58:56 5 text/html [...] HPI: History of left knee menisectomy at [facility] 10+ years ago, no records available today. Localizes the pain to the medial and lateral aspect of her left knee especially and a crepitus, popping sensation. Occasionally describes knee locking and having to unlock her knee. Pain exacerbated by squatting, pivoting, at night, getting up from a seated position. About 5 years ago received a cortisone injection at [facility] with good relief. She takes motrin daily. Past family, social history and review of systems has been reviewed, updated and is located in the patient s chart.X-RAYS:Previous 4v X-rays of the Left knee reviewed today at [facility] demonstrate severe medial compartment narrowing on the left with early medial femoral condyle osteophyte formation, while on the right more mild to moderate with no osteophyte formation. Moderate patellofemoral space narrowing bilaterally with osteophyte formation. MRI Phhqbme78/23/24 of the left knee reviewed today demonstrates: [...] and agrees with the plan. Speech recognition room attendants software was used to create portions of this document. An attempt at proofreading has been made to minimize errors. Please call for corrections. Randi Pinto PA-C [address] [facility] [address] [facility], [place], [address], [facility] 09/12/2024 14:57:29 5 text/html [...] and follow up as needed. Speech recognition room attendants software was used to create portions of this document. An attempt at proofreading has been made to minimize errors. Please call for corrections. Randi Pinto PA-C [address] [place] [address] [address] [facility], [place], [address], [facility] 10/13/2024 14:23:47 5 text/html I am seeing [...] instability on examination would recommend a medial physician's aide brace.The patient is ambulatory, but has weakness [...] PA-C [address] [facility] [address], [place], [address], [place] [facility] 01/16/2025 16:48:43 Care Team Name Role Member ID Specialty Address Phone TAE DIALLO MD Primary Care Provider [phone] [place] [address] [address], [place], [place] OBGyn Episode No OBEpisode recorded.
[2025-07-22 16:23] LABS: Bacterial Vaginosis PCR NEGATIVE (Negative); Candida Group PCR NOT DETECTED (Not Detect); Candida glab krusei PCR NOT DETECTED (Not Detect); Trichomonas vaginalis PCR NOT DETECTED (Not Detect)
[2025-07-22 16:55] LABS: CT PCR NOT DETECTED (Not Detect.); NG PCR NOT DETECTED (Not Detect.)
== END 2025-07-22 10:15 | disposition home or self-care (01) ==
LOC: HO.LNP 10:14
PROVIDERS: PCP Internal Medicine; Visit Provider Advanced Practice Midwife
DX: Z01.419 Encounter for gynecological examination (general) (routine) without abnormal findings (principal); Z78.0 Asymptomatic menopausal state; Z20.2 Contact with and (suspected) exposure to infections with a predominantly sexual mode of transmission
CPT/HCPCS: 81515; 87491; 87591